=== PATIENT | female | born 1940 | race American Indian/Alaskan Native ===

== ENCOUNTER 2016-10-26 17:21 | Observation (INO) | payer MEDICARE, OTHER ==
[2016-10-26] MEDS ORDERED: Aspirin 81 MG Tab.Chew PO ONE (17:31)
[2016-10-26] MEDS ORDERED: Sodium Chloride 0.9% 10 ML Syringe FLUSH PRN (17:31)
[2016-10-26] MEDS ORDERED: Sodium Chloride 0.9% 2.5 ML Syringe FLUSH PRN (17:31)
[2016-10-26] MEDS ORDERED: Famotidine 20 MG/2 ML SDV IVPUSH ONE (17:31)
[2016-10-26] MEDS ORDERED: Nitroglycerin 0.4 MG Tab.SL SL ONE (17:31)
--- NOTE | 2016-10-26 17:42 | EDM.PDOC ---
ED HISTORY OF PRESENT ILLNESS - General Stated Complaint: PT HAS CHEST PAINS Time Seen by Provider: 10/26/16 17:40 Source of Information: Reports: Patient History Limitations: Reports: No limitations - History of Present Illness INITIAL COMMENTS - FREE TEXT/NARRATIVE: HISTORY AND PHYSICAL: [] 75-year-old female presenting with left-sided chest pain radiating under her breast through to her back History of Present Illness: [] Chest pain started about 12:00 noon today which B. 5-1/2 hours ago Review of Systems: As per history of present illness and below otherwise all systems reviewed and negative. Past medical history: As per history of present illness and as reviewed below otherwise noncontributory. Surgical history: As per history of present illness and as reviewed below otherwise noncontributory. Social history: No reported history of drug or alcohol abuse. Family history: As per history of present illness and as reviewed below otherwise noncontributory. Physical exam: Alert and oriented female, answering questions in full sentences , is warm and dry. Rates pain as a 5/10 HEENT: Atraumatic, normocehpalic, pupils reactive, negative for conjunctival pallor or scleral icterus, mucous membranes moist, throat clear, neck supple, nontender, trachea midline. Lungs: Clear to auscultation, breath sounds equal bilaterally, chest non tender. Heart: S1S2, regular, negative for clicks, rubs, or JVD. Abdomen: Soft, nondistended, nontender. Negative for masses or hepatossplenmegaly. Negative for costovertebral tenderness. Pelvis: Stable nontender. Genitourinary: Deferred. Rectal: Deferred Extremities: Atraumatic, negative for cords or calf pain. Neurovascular unremarkable. Neuro: Awake, alert, oriented. Cranial nerves II through XII unremarkable. Cerebellum unremarkable. Motor and sensory unremarkable throughout. Exam nonfocal. The patient's pain was relieved with one nitroglycerin. troponin is negative Discussed case with Dr. Gomez who has agreed to refer her for observation on telemetry Diagnostics: [CBC CMP troponin amylase lipase EKG chest x-ray] Therapeutics: [] Impression: #1 chest pain] Plan: [] Refer to sedation Definitive disposition and diagnosis as appropriate pending reevaluation and review of above. Timing/Duration: Reports: Hour(s): Severity: moderate Location, General: Reports: chest Quality: Reports: Ache, Stabbing Improves with: Reports: None Worsens with: Reports: Breathing, Movement - Related Data Allergies/ADRs: Allergies Allergy/AdvReac Type Severity Reaction Status Date / Time codeine Allergy Hives Verified 12/03/15 14:03 red dye Allergy Airway Verified 12/03/15 14:03 Tightness sulfamethoxazole Allergy Hives Verified 12/03/15 14:03 [From Bactrim] trimethoprim [From Bactrim] Allergy Hives Verified 12/03/15 14:03 ornade Spansules Allergy Hives Uncoded 12/03/15 14:03 Home Meds: Home Meds Clopidogrel [Plavix] 75 mg PO DAILY 04/23/15 [History] Fluticasone Furoate [Veramyst] 2 spray NS DAILY 04/23/15 [History] Hydrochlorothiazide 25 mg PO DAILY 04/23/15 [History] Lisinopril [Prinivil] 20 mg PO DAILY 04/23/15 [History] Omeprazole 20 mg PO DAILY 04/23/15 [History] atorvaSTATin [Lipitor] 10 mg PO BEDTIME 04/23/15 [History] Aspirin [Adult Low Dose Aspirin EC] 1 tab PO DAILY 12/03/15 [History] Carvedilol 1 tab PO BID 12/03/15 [History] Cetirizine [ZyrTEC] 1 tab PO DAILY 12/03/15 [History] Glimepiride [Amaryl] 1 tab PO DAILY 12/03/15 [History] Nystatin/Triamcinolone Crm [Mycolog Crm] 1 applic TOP BID 12/03/15 [History] Past Medical History HEENT History: Reports: Impaired vision Other HEENT History: wears glasses, has upper dentures Cardiovascular History: Reports: High cholesterol, Hypertension, VT Other Cardiovascular History: VT 2014, has been cleared by Dr. Park, Did not have stent put in, was told her arteries were clear; the VT was caused by stress, TIA in 2002, no residual Respiratory History: Reports: None Gastrointestinal History: Reports: GERD Genitourinary History: Reports: None HOSPITAL [employer]HIP History: Reports: Musculoskeletal History: Reports: None Neurological History: Reports: TIA Other Neuro History: "states she has hx of 7 hamilton and treated in [place]" Psychiatric History: Reports: None Endocrine/Metabolic History: Reports: Obesity/BMI 30+ Hematologic History: Reports: None Immunologic History: Reports: None Oncologic (Cancer) History: Reports: None Dermatologic History: Reports: None - Past Surgical History Other Female Surgeries/Procedures: Anterior repair Social & Family History - Tobacco Use Smoking Status *Q: Never Smoker Second Hand Smoke Exposure: No - Recreational Drug Use Recreational Drug Use: No ED ROS GENERAL - Review of Systems Review Of Systems: ROS reveals no pertinent complaints other than HPI. ED EXAM, GENERAL - Physical Exam Exam: See Below (see dictation) EKG INTERPRETATION EKG Date: 10/26/16 Rhythm: NSR Course - Vital Signs Last Recorded V/S: Last Vital Signs Temp Pulse Resp BP 131/66 10/26/16 18:39 Pulse Ox - Orders/Labs/Meds Orders: Active Orders 24 hr Category Date Time Status Cardiac Monitoring [RC] . DIRECTED Care 10/26/16 17:31 Active EKG Documentation Completion [RC] STAT Care 10/26/16 17:31 Active Oxygen Therapy [RC] ASDIRECTED Care 10/26/16 17:31 Active Chest 1V Frontal [CR] Stat Exams 10/26/16 17:31 Ordered AMYLASE [CHEM] Stat Lab 10/26/16 18:00 Received COMPREHENSIVE METABOLIC PN,CMP [CHEM] Stat Lab 10/26/16 18:00 Received INR,PT,PROTHROMBIN TIME [COAG] Stat Lab 10/26/16 18:00 Received LIPASE [CHEM] Stat Lab 10/26/16 18:00 Received UA W/MICROSCOPIC [URIN] Stat Lab 10/26/16 17:31 Uncollected Sodium Chloride 0.9% [Saline Flush] Med 10/26/16 17:31 Active 10 ml FLUSH ASDIRECTED PRN Sodium Chloride 0.9% [Saline Flush] Med 10/26/16 17:31 Active 2.5 ml FLUSH ASDIRECTED PRN Saline Lock Insert [OM.PC] Stat Oth 10/26/16 17:31 Ordered Medication Orders Sodium Chloride (Saline Flush) 10 ml FLUSH ASDIRECTED PRN PRN Reason: Keep Vein Open Sodium Chloride (Saline Flush) 2.5 ml FLUSH ASDIRECTED PRN PRN Reason: Keep Vein Open Labs: Laboratory Tests 10/26/16 10/26/16 Range/Units 18:00 18:00 WBC 8.21 (4.0-11.0) K/uL RBC 4.25 L (4.30-5.90) M/uL Hgb 13.3 (12.0-16.0) g/dL Hct 38.2 (36.0-46.0) % MCV 89.9 (80.0-98.0) fL MCH 31.3 (27.0-32.0) pg MCHC 34.8 (31.0-37.0) g/dL RDW Std Deviation 40.1 (28.0-62.0) fl RDW Coeff of Greg 13 (11.0-15.0) % Plt Count 218 (150-400) K/uL MPV 10.00 (7.40-12.00) fL Neut % (Auto) 49.4 (48.0-80.0) % Lymph % (Auto) 40.6 H (16.0-40.0) % [place] % (Auto) 6.8 (0.0-15.0) % Eos % (Auto) 2.6 (0.0-7.0) % Baso % (Auto) 0.6 (0.0-1.5) % Neut # 4.1 (1.4-5.7) K/uL Lymph # 3.3 H (0.6-2.4) K/uL [place] # 0.6 (0.0-0.8) K/uL Eos # 0.2 (0.0-0.7) K/uL Baso # 0.1 (0.0-0.1) K/uL Nucleated RBC % 0.0 /100WBC Nucleated RBCs # 0 K/uL Troponin I < 0.10 (0.0-0.29) NG/ML Meds: Medications Generic Name Dose Route Start Last Admin Trade Name Freq PRN Reason Stop Dose Admin Sodium Chloride 10 ml 10/26/16 17:31 Saline Flush FLUSH ASDIRECTED PRN Keep Vein Open Sodium Chloride 2.5 ml 10/26/16 17:31 Saline Flush FLUSH ASDIRECTED PRN Keep Vein Open Discontinued Medications Generic Name Dose Route Start Last Admin Trade Name Freq PRN Reason Stop Dose Admin Aspirin 324 mg 10/26/16 17:31 10/26/16 18:38 Aspirin PO 10/26/16 17:32 324 mg ONETIME ONE Administration Famotidine 20 mg 10/26/16 17:31 10/26/16 18:40 Pepcid IVPUSH 10/26/16 17:32 20 mg ONETIME ONE Administration Nitroglycerin 0.4 mg 10/26/16 17:31 10/26/16 18:39 Nitrostat SL 10/26/16 17:32 0.4 mg ONETIME ONE Administration Departure - Departure Time of Disposition: 18:50 Disposition: Refer to Observation Condition: good Clinical Impression: Acute coronary syndrome - My Orders Last 24 Hours: My Active Orders 10/26/16 17:31 Cardiac Monitoring [RC] . DIRECTED EKG Documentation Completion [RC] STAT Oxygen Therapy [RC] ASDIRECTED Chest 1V Frontal [CR] Stat UA W/MICROSCOPIC [URIN] Stat Sodium Chloride 0.9% [Saline Flush] 10 ml FLUSH ASDIRECTED PRN Sodium Chloride 0.9% [Saline Flush] 2.5 ml FLUSH ASDIRECTED PRN Saline Lock Insert [OM.PC] Stat 10/26/16 18:00 AMYLASE [CHEM] Stat COMPREHENSIVE METABOLIC PN,CMP [CHEM] Stat INR,PT,PROTHROMBIN TIME [COAG] Stat LIPASE [CHEM] Stat - Assessment/Plan Last 24 Hours: My Active Orders 10/26/16 17:31 Cardiac Monitoring [RC] . DIRECTED EKG Documentation Completion [RC] STAT Oxygen Therapy [RC] ASDIRECTED Chest 1V Frontal [CR] Stat UA W/MICROSCOPIC [URIN] Stat Sodium Chloride 0.9% [Saline Flush] 10 ml FLUSH ASDIRECTED PRN Sodium Chloride 0.9% [Saline Flush] 2.5 ml FLUSH ASDIRECTED PRN Saline Lock Insert [OM.PC] Stat 10/26/16 18:00 AMYLASE [CHEM] Stat COMPREHENSIVE METABOLIC PN,CMP [CHEM] Stat INR,PT,PROTHROMBIN TIME [COAG] Stat LIPASE [CHEM] Stat
[2016-10-26 18:53] LABS: CHLORIDE,CL 104 mmol/L (98-110); SODIUM,NA 138 mmol/L (136-146)
[2016-10-26] MEDS ORDERED: Ondansetron 4 MG/2 ML SDV IVPUSH PRN (19:11)
[2016-10-26] MEDS ORDERED: Acetaminophen 325 MG Tab PO PRN (19:11)
--- NOTE | 2016-10-26 19:22 | PCM.HP ---
H&P History of Present Illness - General Admit Problem/Dx: Admission Diagnosis/Problem Admission Diagnosis/Problem Chest pain - History of Present Illness Initial Comments - Free Text/Narative: 75 yo female with pmh of IA in 2013. Patient reports she had cardiac cath in [place] at the time of her IA and she had no significant CAD. She has been doing well at home until one oclock she developed left sided chest pain that radiates to the back. She reports that it is worse when she moves her neck or bend over. She thinks she pulled a muscle. She was evaluated in the ED and intial EKG and cardiac enzymes did not show any signs of ischemia. Left Chest Pain Score (Numeric/FACES): 5 - Related Data Allergies/Adverse Reactions: Allergies Allergy/AdvReac Type Severity Reaction Status Date / Time codeine Allergy Hives Verified 10/26/16 19:17 red dye Allergy Airway Verified 10/26/16 19:17 Tightness sulfamethoxazole Allergy Hives Verified 10/26/16 19:17 [From Bactrim] trimethoprim [From Bactrim] Allergy Hives Verified 10/26/16 19:17 ornade Spansules Allergy Hives Uncoded 10/26/16 19:17 Home Medications: Home Meds Clopidogrel [Plavix] 75 mg PO DAILY 04/23/15 [History] Hydrochlorothiazide 25 mg PO DAILY 04/23/15 [History] Lisinopril [Prinivil] 20 mg PO DAILY 04/23/15 [History] Omeprazole 20 mg PO DAILY 04/23/15 [History] Aspirin [Adult Low Dose Aspirin EC] 1 tab PO DAILY 12/03/15 [History] Carvedilol 6.25 mg PO BID 12/03/15 [History] Cetirizine [ZyrTEC] 1 tab PO DAILY 12/03/15 [History] Glimepiride [Amaryl] 1 tab PO DAILY 12/03/15 [History] atorvaSTATin [Lipitor] 5 mg PO DAILY 10/26/16 [History] metFORMIN [Glucophage XR] 250 mg PO BEDTIME 10/26/16 [History] Past Medical History HEENT History: Reports: Impaired vision Other HEENT History: wears glasses, has upper dentures Cardiovascular History: Reports: High cholesterol, Hypertension, IA Other Cardiovascular History: IA 2014, has been cleared by Dr. 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: Musculoskeletal History: Reports: None Neurological History: Reports: TIA Other Neuro History: "states she has hx of 7 hamilton and treated in [place]" Psychiatric History: Reports: None Endocrine/Metabolic History: Reports: Obesity/BMI 30+ Hematologic History: Reports: None Immunologic History: Reports: None Oncologic (Cancer) History: Reports: None Dermatologic History: Reports: None - Past Surgical History Head Surgeries/Procedures: Reports: None Other Female Surgeries/Procedures: Anterior repair Social & Family History - Family History Family Medical History: Noncontributory - Tobacco Use Smoking Status *Q: Former Smoker Second Hand Smoke Exposure: No - Recreational Drug Use Recreational Drug Use: No H&P Review of Systems - Review of Systems: Review Of Systems: See Below General: Reports: no symptoms HEENT: Reports: no symptoms Pulmonary: Reports: No Symptoms Cardiovascular: Reports: no symptoms Gastrointestinal: Reports: No symptoms Genitourinary: Reports: no symptoms Musculoskeletal: Reports: no symptoms Skin: Reports: no symptoms Psychiatric: Reports: no symptoms Neurological: Reports: No Symptoms Hematologic/Lymphatic: Reports: no symptoms Immunologic: Reports: no symptoms Exam - Exam Exam: See Below - Vital Signs Vital Signs: Last Vital Signs Temp 36.9 C 10/26/16 18:30 Pulse 73 10/26/16 18:30 Resp 18 10/26/16 18:30 BP 131/66 10/26/16 18:39 Pulse Ox 97 10/26/16 19:06 Weight: 72.575 kg - Exam General: alert, oriented, 4 Lungs: Clear to auscultation, Normal respiratory effort Cardiovascular: regular rate, regular rhythm Abdomen: normal bowel sounds, soft Extremities: normal inspection Skin: warm, dry, intact - Patient Data Lab Results last 24 hrs: Laboratory Results - last 24 hr 10/26/16 10/26/16 10/26/16 Range/Units 18:00 18:00 18:00 WBC 8.21 (4.0-11.0) K/uL RBC 4.25 L (4.30-5.90) M/uL Hgb 13.3 (12.0-16.0) g/dL Hct 38.2 (36.0-46.0) % MCV 89.9 (80.0-98.0) fL MCH 31.3 (27.0-32.0) pg MCHC 34.8 (31.0-37.0) g/dL RDW Std Deviation 40.1 (28.0-62.0) fl RDW Coeff of Greg 13 (11.0-15.0) % Plt Count 218 (150-400) K/uL MPV 10.00 (7.40-12.00) fL Neut % (Auto) 49.4 (48.0-80.0) % Lymph % (Auto) 40.6 H (16.0-40.0) % [place] % (Auto) 6.8 (0.0-15.0) % Eos % (Auto) 2.6 (0.0-7.0) % Baso % (Auto) 0.6 (0.0-1.5) % Neut # 4.1 (1.4-5.7) K/uL Lymph # 3.3 H (0.6-2.4) K/uL Todd # 0.6 (0.0-0.8) K/uL Eos # 0.2 (0.0-0.7) K/uL Baso # 0.1 (0.0-0.1) K/uL Nucleated RBC % 0.0 /100WBC Nucleated RBCs # 0 K/uL INR 1.01 (0.86-1.11) Sodium 138 (136-146) mmol/L Potassium 3.9 (3.5-5.1) mmol/L Chloride 104 (98-110) mmol/L Carbon Dioxide 24 (21-31) mmol/L BUN 26 H (6.0-23.0) mg/dL Creatinine 1.1 (0.6-1.5) mg/dL Est Cr Clr Drug Dosing TNP Estimated GFR (MDRD) 48.4 ml/min Glucose 230 H (60-110) mg/dL Calcium 9.2 (8.8-10.8) mg/dL Total Bilirubin 0.4 (0.1-1.5) mg/dL AST 16 (5-40) IU/L ALT 16 (8-54) IU/L Alkaline Phosphatase 86 (40-150) Troponin I (0.0-0.29) NG/ML Total Protein 8.0 (6.0-8.0) g/dL Albumin 4.1 (3.4-4.8) g/dL Globulin 3.9 H (2.0-3.5) g/dL Albumin/Globulin Ratio 1.1 L (1.3-2.8) Amylase 42 (10-90) U/L Lipase 73 (7-80) U/L 10/26/16 Range/Units 18:00 WBC (4.0-11.0) K/uL RBC (4.30-5.90) M/uL Hgb (12.0-16.0) g/dL Hct (36.0-46.0) % MCV (80.0-98.0) fL MCH (27.0-32.0) pg MCHC (31.0-37.0) g/dL RDW Std Deviation (28.0-62.0) fl RDW Coeff of Greg (11.0-15.0) % Plt Count (150-400) K/uL MPV (7.40-12.00) fL Neut % (Auto) (48.0-80.0) % Lymph % (Auto) (16.0-40.0) % [place] % (Auto) (0.0-15.0) % Eos % (Auto) (0.0-7.0) % Baso % (Auto) (0.0-1.5) % Neut # (1.4-5.7) K/uL Lymph # (0.6-2.4) K/uL [place] # (0.0-0.8) K/uL Eos # (0.0-0.7) K/uL Baso # (0.0-0.1) K/uL Nucleated RBC % /100WBC Nucleated RBCs # K/uL INR (0.86-1.11) Sodium (136-146) mmol/L Potassium (3.5-5.1) mmol/L Chloride (98-110) mmol/L Carbon Dioxide (21-31) mmol/L BUN (6.0-23.0) mg/dL Creatinine (0.6-1.5) mg/dL Est Cr Clr Drug Dosing Estimated GFR (MDRD) ml/min Glucose (60-110) mg/dL Calcium (8.8-10.8) mg/dL Total Bilirubin (0.1-1.5) mg/dL AST (5-40) IU/L ALT (8-54) IU/L Alkaline Phosphatase (40-150) Troponin I < 0.10 (0.0-0.29) NG/ML Total Protein (6.0-8.0) g/dL Albumin (3.4-4.8) g/dL Globulin (2.0-3.5) g/dL Albumin/Globulin Ratio (1.3-2.8) Amylase (10-90) U/L Lipase (7-80) U/L Result Diagrams: 10/26/16 18:00 10/26/16 18:00 *Q Meaningful Use (ADM) - VTE *Q VTE Criteria *Q: - Stroke *Q Stroke Criteria *Q: - AMI *Q AMI Criteria *Q: Problem List Initiated/Reviewed/Updated: Yes Orders Last 24hrs: Active Orders 24 hr Category Date Time Status Patient Status [ADT] Stat ADT 10/26/16 18:50 Active Antiembolic Devices [RC] PER UNIT ROUTINE Care 10/26/16 19:13 Ordered Cardiac Monitoring [RC] . DIRECTED Care 10/26/16 17:31 Active EKG Documentation Completion [RC] STAT Care 10/26/16 17:31 Active Intake and Output [RC] QSHIFT Care 10/26/16 19:12 Ordered Oxygen Therapy [RC] ASDIRECTED Care 10/26/16 17:31 Active Oxygen Therapy [RC] PRN Care 10/26/16 19:11 Ordered Up ad Jolene [RC] ASDIRECTED Care 10/26/16 19:11 Ordered VTE/DVT Education [RC] PER UNIT ROUTINE Care 10/26/16 19:11 Ordered Vital Signs [RC] Q4H Care 10/26/16 19:11 Ordered [employer] Diet [DIET] Diet 10/26/16 Breakfast Ordered Chest 1V Frontal [CR] Stat Exams 10/26/16 17:31 Taken GLYCOSYLATED HEMOGLOBIN,HGBA1C [CHEM] Stat Lab 10/26/16 19:09 Ordered TROPONIN I [CHEM] Q6H Lab 10/27/16 00:00 Ordered TROPONIN I [CHEM] Q6H Lab 10/27/16 06:00 Ordered UA W/MICROSCOPIC [URIN] Stat Lab 10/26/16 17:31 Uncollected Acetaminophen [Tylenol] Med 10/26/16 19:11 Ordered 650 mg PO Q4H PRN Aspirin [Halfprin] Med 10/27/16 09:00 Ordered 1 tab PO DAILY Carvedilol [Coreg] Med 10/26/16 21:00 Ordered 1 tab PO BID Clopidogrel [Plavix] Med 10/27/16 09:00 Ordered 75 mg PO DAILY Fluticasone Furoate [Veramyst] Med 10/27/16 09:00 Ordered 2 spray NS DAILY Hydrochlorothiazide Med 10/27/16 09:00 Ordered 25 mg PO DAILY Insulin Aspart [NovoLOG] Med 10/27/16 07:30 Ordered See Protocol SUBCUT TIDAC Lisinopril Med 10/27/16 09:00 Ordered 20 mg PO DAILY Omeprazole Med 10/27/16 09:00 Ordered 20 mg PO DAILY Ondansetron [Zofran] Med 10/26/16 19:11 Ordered 4 mg IVPUSH Q4H PRN Sodium Chloride 0.9% [Saline Flush] Med 10/26/16 17:31 Active 10 ml FLUSH ASDIRECTED PRN Sodium Chloride 0.9% [Saline Flush] Med 10/26/16 17:31 Active 2.5 ml FLUSH ASDIRECTED PRN atorvaSTATin [Lipitor] Med 10/26/16 21:00 Ordered 10 mg PO BEDTIME Saline Lock Insert [OM.PC] Stat Oth 10/26/16 17:31 Ordered Sequential Compression Device [OM.PC] Per Unit Routine Oth 10/26/16 19:12 Ordered Resuscitation Status Routine Resus Stat 10/26/16 19:11 Ordered Medication Orders Acetaminophen (Tylenol) 650 mg PO Q4H PRN PRN Reason: Pain (Mild 1-3)/fever Aspirin (Halfprin) mg PO DAILY IPLAR Atorvastatin Calcium (Lipitor) 10 mg PO BEDTIME PILAR Carvedilol (Coreg) mg PO BID PILAR Clopidogrel Bisulfate (Plavix) 75 mg PO DAILY PILAR Hydrochlorothiazide (Hydrochlorothiazide) 25 mg PO DAILY PILAR Insulin Aspart (Novolog) 0 unit SUBCUT TIDAC PILAR PRN Reason: Protocol Non-Formulary Medication (Lisinopril) 20 mg PO DAILY PILAR Non-Formulary Medication (Fluticasone Furoate [Veramyst]) 2 spray NS DAILY PILAR Omeprazole (Omeprazole) 20 mg PO DAILY PILAR Ondansetron HCl (Zofran) 4 mg IVPUSH Q4H PRN PRN Reason: Nausea Sodium Chloride (Saline Flush) 10 ml FLUSH ASDIRECTED PRN PRN Reason: Keep Vein Open Sodium Chloride (Saline Flush) 2.5 ml FLUSH ASDIRECTED PRN PRN Reason: Keep Vein Open Assessment/Plan Comment:: 75 yo female who presents with chest pain. We will monitor overnight on telemetry and trend cardiac enzymes.
[2016-10-26] MEDS ORDERED: atorvaSTATin 10 MG Tab PO SCH (21:00)
[2016-10-26] MEDS ORDERED: Carvedilol 3.125 MG Tab PO SCH ×2 (21:00→21:05)
[2016-10-26] MEDS ORDERED: metFORMIN 500 MG Tab.ER PO SCH (21:00)
[2016-10-26] MEDS: Carvedilol 6.25 MG Tab PO SCH (22:22)
[2016-10-27] MEDS: Insulin Aspart 100 Units/ML 3 ML Pen SUBCUT SCH ×2 (06:31→11:26)
[2016-10-27] MEDS ORDERED: Omeprazole 20 MG Cap.CR PO SCH ×2 (07:30→09:00)
[2016-10-27 08:12] VITALS: BP 144/72
[2016-10-27] MEDS: Carvedilol 6.25 MG Tab PO SCH (08:17)
[2016-10-27] MEDS ORDERED: Glimepiride 4 MG Tab PO SCH (09:00)
[2016-10-27] MEDS ORDERED: FLUTICASONE FUROATE NS SCH (09:00)
[2016-10-27] MEDS ORDERED: atorvaSTATin 10 MG Tab PO SCH (09:00)
[2016-10-27] MEDS ORDERED: Aspirin 81 MG Tab.EC PO SCH (09:00)
[2016-10-27] MEDS ORDERED: Lisinopril 10 MG Tab PO SCH (09:00)
[2016-10-27] MEDS ORDERED: Hydrochlorothiazide 25 MG Tab PO SCH (09:00)
[2016-10-27] MEDS ORDERED: Fluticasone Propionate Nasal Spray 16 GM Bottle NAS SCH (09:00)
[2016-10-27] MEDS ORDERED: Clopidogrel 75 MG Tab PO SCH (09:00)
--- NOTE | 2016-10-27 09:00 | PCM.DCSUM1 ---
Discharge Summary - Hospital Course Brief History: This 75 year old female with pmh of LA in 2013 and DM type 2. Patient reports she had cardiac cath in [place] at the time of her LA and she had no significant CAD. Presented to the ED last evening, she has been doing well at home until one oclock she developed left sided chest pain that radiates to the back. She reports that it is worse when she moves her neck or bend over. She thinks she pulled a muscle, she has been out shoveling snow recently. She was evaluated in the ED and intial EKG and cardiac enzymes did not show any signs of ischemia. She was admitted for chest pain r/o ACS. - Discharge Data Discharge Date: 10/27/16 Discharge Disposition: Home, Self-Care 01 Condition: Good - Patient Instructions Diet: Heart Healthy Diet, Diabetic Diet Activity: As Tolerated Driving: May Drive Today Showering/Bathing: May Shower Notify Provider of: Fever, Increased Pain, Swelling and Redness, Drainage, Nausea and/or Vomiting - Discharge Plan Home Medications: Home Meds Clopidogrel [Plavix] 75 mg PO DAILY 04/23/15 [History] Hydrochlorothiazide 25 mg PO DAILY 04/23/15 [History] Lisinopril [Prinivil] 20 mg PO DAILY 04/23/15 [History] Omeprazole 20 mg PO DAILY 04/23/15 [History] Aspirin [Adult Low Dose Aspirin EC] 1 tab PO DAILY 12/03/15 [History] Carvedilol 6.25 mg PO BID 12/03/15 [History] Cetirizine [ZyrTEC] 1 tab PO DAILY 12/03/15 [History] Glimepiride [Amaryl] 1 tab PO DAILY 12/03/15 [History] atorvaSTATin [Lipitor] 5 mg PO DAILY 10/26/16 [History] metFORMIN [Glucophage XR] 250 mg PO BEDTIME 10/26/16 [History] Patient Handouts: Acute Coronary Syndrome Referrals: Leslee Liu MD [Physician] - 11/06/16 9:00 am - Discharge Summary/Plan Comment DC Time >30 min.: No Discharge Summary/Plan Comment: Discharge Diagnoses Muscle strain to L shoulder/ upper back HTN CAD DM type 2 Kayce was admitted and observed overnight. ACS ruled out, all troponins negative. and telemetry did not show any ST segment changes. She continues to have pain, but it is more focal and located to L scapula. She is tender to palpation over L lateral scapula. When pressing in this area it reproduces the pain and sensations she was having on admission. Chest pain likely secondary to muscle strain of shoulder and back. She is encouraged to take Tylenol for pain, ICE and heat may help and to rest with no strenuous activities. She reports she is eager to go home today. I will arrange follow up with Dr. Liu in [place] in 1 week. She reports she just saw Dr Park 1-2 months ago and everything checked out fine. We would recommend an outpatient stress test, but she declines scheduling this and will follow with Dr. Liu first. Will continue all home medications as previously ordered. She is to return to the clinic or ED if concerns should arise. - General Info Date of Service: 10/27/16 Admission Dx/Problem (Free Text: Admission Diagnosis/Problem Admission Diagnosis/Problem Chest pain Subjective Update: Feeling good this morning, still having pain to L upper back, scapula area but "I know this is not my heart". She denies chest pain, SOB or palpitations. No N/ V or diaphoresis. She is ready to go home today. Functional Status: Reports: pain controlled, tolerating diet, ambulating, urinating - Review of Systems General: Reports: No Symptoms. Denies: Fever HEENT: Reports: no symptoms. Denies: sinus congestion, sore throat Pulmonary: Reports: no symptoms. Denies: shortness of breath, pleuritic chest pain, cough, sputum Cardiovascular: Reports: No Symptoms. Denies: Chest Pain, Palpitations, Edema Gastrointestinal: Reports: No symptoms. Denies: Abdominal pain, Constipation, Nausea, Vomiting Genitourinary: Reports: no symptoms. Denies: dysuria, frequency, burning Musculoskeletal: Reports: back pain (upper L back, scapula region radiates up to L neck and around the flank to the L armpit) Skin: Reports: no symptoms Neurological: Reports: No Symptoms. Denies: Numbness, Paresthesia, Syncope, Tingling Psychiatric: Reports: no symptoms - Patient Data Vitals - Most Recent: Last Vital Signs Temp 98.1 F 10/27/16 08:00 Pulse 69 10/27/16 08:17 Resp 18 10/27/16 08:00 BP 144/72 H 10/27/16 08:17 Pulse Ox 95 10/27/16 08:00 Weight - Most Recent: 77.678 kg I&O - Last 24 hours: Intake & Output 10/26/16 10/27/16 10/27/16 22:59 06:59 14:59 Intake Total 275 Output Total 650 Balance -375 Lab Results - Last 24 hrs: Laboratory Results - last 24 hr 10/27/16 10/27/16 10/27/16 Range/Units 00:10 05:47 06:26 POC Glucose 155 H (60-110) mg/dL Troponin I < 0.10 < 0.10 (0.0-0.29) NG/ML Med Orders - Current: Current Medications Acetaminophen (Tylenol) 650 mg PO Q4H PRN PRN Reason: Pain (Mild 1-3)/fever Aspirin (Halfprin) 81 mg PO DAILY [facility] Last Admin: 10/27/16 08:13 Dose: 81 mg Atorvastatin Calcium (Lipitor) 5 mg PO DAILY [facility] Last Admin: 10/27/16 08:14 Dose: 5 mg Carvedilol (Coreg) 6.25 mg PO BID [facility] Last Admin: 10/27/16 08:17 Dose: 6.25 mg Clopidogrel Bisulfate (Plavix) 75 mg PO DAILY [facility] Last Admin: 10/27/16 08:16 Dose: 75 mg Fluticasone Propionate (Flonase) 0 gm NORI DAILY [facility] Last Admin: 10/27/16 08:29 Dose: Not Given Glimepiride (Glimepiride) 4 mg PO DAILY [facility] Last Admin: 10/27/16 08:29 Dose: 4 mg Hydrochlorothiazide (Hydrochlorothiazide) 25 mg PO DAILY [facility] Last Admin: 10/27/16 08:13 Dose: 25 mg Insulin Aspart (Novolog) 0 unit SUBCUT TIDAC [facility] PRN Reason: Protocol Last Admin: 10/27/16 06:31 Dose: Not Given Lisinopril (Prinivil) 20 mg PO DAILY [facility] Last Admin: 10/27/16 08:13 Dose: 20 mg Metformin HCl (Glucophage Xr) 250 mg PO BEDTIME [facility] Last Admin: 10/26/16 21:21 Dose: 250 mg Omeprazole (Omeprazole) 20 mg PO ACBREAKFAST [facility] Last Admin: 10/27/16 06:35 Dose: 20 mg Ondansetron HCl (Zofran) 4 mg IVPUSH Q4H PRN PRN Reason: Nausea Sodium Chloride (Saline Flush) 10 ml FLUSH ASDIRECTED PRN PRN Reason: Keep Vein Open Sodium Chloride (Saline Flush) 2.5 ml FLUSH ASDIRECTED PRN PRN Reason: Keep Vein Open Discontinued Medications Aspirin (Aspirin) 324 mg PO ONETIME ONE Stop: 10/26/16 17:32 Last Admin: 10/26/16 18:38 Dose: 324 mg Atorvastatin Calcium (Lipitor) 10 mg PO BEDTIME [facility] Carvedilol (Coreg) mg PO BID [facility] Carvedilol (Coreg) 6.25 mg PO BID [facility] Famotidine (Pepcid) 20 mg IVPUSH ONETIME ONE Stop: 10/26/16 17:32 Last Admin: 10/26/16 18:40 Dose: 20 mg Nitroglycerin (Nitrostat) 0.4 mg SL ONETIME ONE Stop: 10/26/16 17:32 Last Admin: 10/26/16 18:39 Dose: 0.4 mg Non-Formulary Medication (Fluticasone Furoate [Veramyst]) 2 spray NS DAILY [facility] Omeprazole (Omeprazole) 20 mg PO DAILY [facility] - Exam General: Reports: alert, oriented, cooperative HEENT: Reports: Pupils equal, Pupils reactive, EOMI, Mucous membr. moist/pink Neck: Reports: supple. Denies: lymphadenopathy, JVD Lungs: Reports: Clear to auscultation, Normal respiratory effort. Denies: Decreased breath sounds, Crackles Cardiovascular: Reports: Regular Rate, Regular Rhythm, No Murmurs Abdomen: Reports: bowel sounds present, soft, no tenderness, no distension Extremities: Reports: no edema, normal pulses Wound/Incisions: Reports: healing well Psy/Mental Status: Reports: alert, normal affect, normal mood *Q Meaningful Use (DIS) - VTE *Q VTE Criteria *Q: - Stroke *Q Stroke Criteria *Q: - AMI *Q AMI Criteria *Q:
--- NOTE | 2016-10-27 13:58 | CR ---
EXAM DATE: 10/26/16 PATIENT'S AGE: 75 Patient: DANNY SWEENEY Facility: [place], [place] Site Site : [id number] Study: XRay Chest [id number]/16/2017 6:53:42 PM Ordering Physician: CORIE WOODY Final Report: Indication: Chest pain Technique: Chest 1 view. Comparison: December 01, 2015 Findings/impression: : Lung volumes are low with minimal atelectasis at both lung bases. No focal consolidation, effusion, or pneumothorax. Stable cardiomediastinal silhouette. No acute osseous abnormality. Dictated by Neha Lopez MD @ Oct 26 2016 7:03PM (Electronic Signature) Report Signed by Proxy and Original Signed Document filed in the Medical Record. MTDD
== END 2016-10-27 12:15 | disposition home or self-care (01) ==
LOC: MW.ED 17:21 → MW.MS 19:06
PROVIDERS: ADMIT Internal Medicine; ATTEND Internal Medicine
DX: S29.012A Strain of muscle and tendon of back wall of thorax, initial encounter (principal); S46.912A Strain of unspecified muscle, fascia and tendon at shoulder and upper arm level, left arm, initial encounter; I25.10 Atherosclerotic heart disease of native coronary artery without angina pectoris; I10 Essential (primary) hypertension; E11.9 Type 2 diabetes mellitus without complications; Z87.891 Personal history of nicotine dependence; Z79.84 Long term (current) use of oral hypoglycemic drugs; Z79.82 Long term (current) use of aspirin; Z79.899 Other long term (current) drug therapy
CPT/HCPCS: 36415; 71010; 80053; 81001; 82150; 82962; 83036; 83690; 84484; 85025; 85610; 93005; 96374; 97802; 99285; A9270; G0378; 99284

== ENCOUNTER 2016-12-26 06:26 | Day surgery (SDC) | payer MEDICARE, OTHER ==
[2016-12-26] MEDS: Lactated Ringers 1,000 ML IV SCH ×2 (06:52→15:30)
--- NOTE | 2016-12-26 07:08 | PCM.PREANE ---
Preanesthetic Assessment - Anesthesia/Transfusion/Family Hx Anesthesia History: Prior Anesthesia Reaction Family History of Anesthesia Reaction: No Transfusion History: No Prior Transfusion(s) Intubation History: Unknown - Review of Systems General: No Symptoms Pulmonary: No Symptoms Cardiovascular: No Symptoms Gastrointestinal: No symptoms Neurological: No Symptoms Other: Reports: None - Physical Assessment NPO Status Date: 12/25/16 NPO Status Time: 17:00 O2 Sat by Pulse Oximetry: 97 Respiratory Rate: 16 Vital Signs: Last Vital Signs Temp 36.5 C 12/26/16 06:57 Pulse 63 12/26/16 06:57 Resp 16 12/26/16 06:57 BP 142/60 H 12/26/16 06:57 Pulse Ox 97 12/26/16 06:57 Height: 1.59 m Weight: 77.111 kg ASA Class: 3 Mental Status: Alert & Oriented x3 Airway Class: Mallampati = 2 Dentition: Reports: Dentures (upper) Thyro-Mental Finger Breadths: 3 Mouth Opening Finger Breadths: 3 ROM/Head Extension: Full Lungs: Clear to auscultation, Normal respiratory effort Cardiovascular: Regular Rate, Regular Rhythm - Allergies Allergies/Adverse Reactions: Allergies Allergy/AdvReac Type Severity Reaction Status Date / Time codeine Allergy Hives Verified 10/26/16 19:17 Iodine and Iodide Containing Allergy Airway Verified 12/22/16 10:27 Produc Tightness red dye Allergy Airway Verified 10/26/16 19:17 Tightness sulfamethoxazole Allergy Hives Verified 10/26/16 19:17 [From Bactrim] trimethoprim [From Bactrim] Allergy Hives Verified 10/26/16 19:17 ornade Spansules Allergy Hives Uncoded 10/26/16 19:17 - Blood Blood Available: No - Anesthesia Plan Pre-Op Medication Ordered: None Beta Estela: Carvedilol Med Last Dose Date: 12/25/16 Med Last Dose Time: 19:00 - Acknowledgements Pt an Appropriate Candidate for the Planned Anesthesia: Yes Alternatives and Risks of Anesthesia Discussed w Pt/Guardian: Yes Pt/Guardian Understands and Agrees with Anesthesia Plan: Yes PreAnesthesia Questionnaire HEENT History: Reports: Other (See Below) Other HEENT History: wears glasses, has upper denture Cardiovascular History: Reports: High Cholesterol, Hypertension, NC, Other (See Below) Other Cardiovascular History: NC in 2014- no stents, TIA in 2002- no residual Respiratory History: Reports: None Gastrointestinal History: Reports: GERD Genitourinary History: Reports: None [employer] History: Reports: Musculoskeletal History: Reports: None Neurological History: Reports: TIA Other Neuro History: TIA- 2002, no residual Psychiatric History: Reports: None Endocrine/Metabolic History: Reports: Diabetes, Type II (since , the same surgery canceled last time due to glucose levels above 600, A1C down to 8.1), Obesity/BMI 30+ Hematologic History: Reports: Anticoagulation Therapy Other Hematologic History: takes plavix Immunologic History: Reports: None Oncologic (Cancer) History: Reports: None Dermatologic History: Reports: None - Past Surgical History Head Surgeries/Procedures: Reports: None HEENT Surgical History: Reports: None Cardiovascular Surgical History: Reports: None Respiratory Surgical History: Reports: None GI Surgical History: Reports: Cholecystectomy (open) Female Surgical History: Reports: Hysterectomy (TVH), Other (See Below) Other Female Surgeries/Procedures: Anterior repair Endocrine Surgical History: Reports: None Neurological Surgical History: Reports: None Musculoskeletal Surgical History: Reports: None Oncologic Surgical History: Reports: None Dermatological Surgical History: Reports: None - SUBSTANCE USE Smoking Status *Q: Former Smoker Second Hand Smoke Exposure: No Recreational Drug Use History: No - HOME MEDS Home Medications: Home Meds Clopidogrel [Plavix] 75 mg PO DAILY 04/23/15 [History] Hydrochlorothiazide 25 mg PO DAILY 04/23/15 [History] Lisinopril [Prinivil] 10 mg PO DAILY 04/23/15 [History] Omeprazole 20 mg PO DAILY 04/23/15 [History] Aspirin [Adult Low Dose Aspirin EC] 1 tab PO DAILY 12/03/15 [History] Carvedilol 3.125 mg PO BID 12/03/15 [History] Cetirizine [ZyrTEC] 10 mg PO DAILY 12/03/15 [History] Glimepiride [Amaryl] 4 mg PO DAILY 12/03/15 [History] Fluticasone Propionate [Flonase Allergy Relief] 1 spray NASBOTH DAILY PRN [History] atorvaSTATin [Lipitor] 5 mg PO DAILY 12/22/16 [History] metFORMIN [Glucophage XR] 1,500 mg PO BEDTIME 12/22/16 [History] - CURRENT (IN HOUSE) MEDS Current Meds: Current Medications Lactated Ringer's (Ringers, Lactated) 1,000 mls @ 125 mls/hr IV ASDIRECTED [facility] Last Admin: 12/26/16 06:52 Dose: 125 mls/hr
[2016-12-26] MEDS ORDERED: Lidocaine 2% 5 ML SDV ONE (07:11)
[2016-12-26] MEDS ORDERED: Propofol 200 MG/20 ML SDV ONE (07:12)
[2016-12-26] MEDS ORDERED: fentaNYL 100 MCG/2 ML SDV ONE (07:12)
[2016-12-26] MEDS ORDERED: fentaNYL 250 MCG/5 ML SDV ONE (07:12)
[2016-12-26] MEDS ORDERED: Midazolam 1 MG/ML 2 ML SDV ONE (07:12)
[2016-12-26] MEDS ORDERED: Fluorescein 5 ML Vial ONE (07:28)
[2016-12-26] MEDS ORDERED: ePHEDrine 50 MG/ML SDV ONE (08:25)
[2016-12-26] MEDS ORDERED: Phenylephrine/Normal Saline 100 MCG/ML 10 ML Syringe ONE (08:25)
[2016-12-26] MEDS ORDERED: fentaNYL 100 MCG/2 ML SDV IVPUSH PRN (08:31)
--- NOTE | 2016-12-26 09:24 | PCM.OPNOTE ---
- General Post-Op/Procedure Note Date of Surgery/Procedure: 12/26/16 Operative Procedure(s): colpocleiesis Findings: 4th degree cystocele and rectocele with complete vault prolapse. Pre Op Diagnosis: prolapse of vaginal vault after hysterectomy Post-Op Diagnosis: Same Anesthesia Technique: General ET tube Primary Surgeon: Dennise Villavicencio Anesthesia Provider: Elias Mc Tassel Making Machine Operator: Juancho Colon Pathology: vaginal mucosa Fluid Replacement, Intraop: 1,000 EBL in mLs: 25 Complications: None Known Condition: Good
--- NOTE | 2016-12-26 10:07 | PCM.POSTAN ---
POST ANESTHESIA ASSESSMENT - MENTAL STATUS Mental Status: alert, oriented - RESPIRATORY Respiratory Status: respiratory rate WNL, airway patent - CARDIOVASCULAR CV Status: pulse rate WNL, blood pressure stable - GASTROINTESTINAL GI Status: no symptoms - POST OP HYDRATION Hydration Status: adequate & stable
--- NOTE | 2016-12-26 10:08 | PCM48HPAN ---
Post Anesthesia Note - EVALUATION WITHIN 48HRS OF ANESTHETIC Vital Signs in Normal Range: Yes Patient Participated in Evaluation: Yes Respiratory Function Stable: Yes Airway Patent: Yes Cardiovascular Function Stable: Yes Hydration Status Stable: Yes Pain Control Satisfactory: Yes Nausea and Vomiting Control Satisfactory: Yes Mental Status Recovered: Yes
[2016-12-26] MEDS ORDERED: Promethazine 25 MG/ML SDV IM PRN ×2 (12:09→13:58)
[2016-12-26] MEDS ORDERED: Promethazine 12.5 MG Supp RECTAL PRN (12:10)
[2016-12-26] MEDS ORDERED: Scopolamine 1.5 MG Transdermal Patch TRDERM PRN (13:56)
[2016-12-26] MEDS ORDERED: traMADol 50 MG Tab PO PRN (13:58)
--- NOTE | 2016-12-26 14:18 | OR ---
SURGEON: Dennise Villavicencio M.D. DATE OF PROCEDURE: 12/26/2016 PREOPERATIVE DIAGNOSIS: Complete vaginal prolapse after hysterectomy. POSTOPERATIVE DIAGNOSIS: Complete vaginal prolapse after hysterectomy. PROCEDURE: Colpocleisis. VP [employer] DIVERSITY: language assistant: Dr. Karen Cardenas. Second technology assistant: Dr. Donya Pérez. ANESTHESIA: General endotracheal. FLUIDS: 1000 mL crystalloid. ESTIMATED BLOOD LOSS: 25 mL. FINDINGS: Fourth degree cystocele and rectocele with complete prolapse of the vaginal vault. COMPLICATIONS: None known. DISPOSITION: Stable to recovery. BRIEF HISTORY: This is a 76-year-old female. She has a remote history of hysterectomy. She has a long history of vaginal prolapse of 4th degree. She was scheduled last year for a vaginal vault suspension, however, at the time of surgery her diabetes was not adequately controlled. She has now gotten better control of her diabetes. She also has a history of stent placement in her heart approximately a year and a half ago, and has been cleared by Cardiology. She has tried a pessary and failed. She has previously had options discussed, including colpocleisis versus vaginal vault suspension with A and P repair. She presents again for surgery. At this time, she is requesting colpocleisis. She states that she is not sexually active nor will she become sexually active in the future. She wants the procedure that has the least likelihood of permanent resolution as well as the least risk related to surgery. She understands that once colpocleisis is performed, she will have minimal vaginal depth. She understands that any repair has a risk of new onset urinary incontinence. General risks of surgery, including bleeding, infection, injury to bowel, bladder, blood vessels, ureter, or other organs, risk of thromboembolic event, were also reviewed, and she does desire to proceed. DESCRIPTION OF PROCEDURE: With the patient in dorsal lithotomy position, under adequate general endotracheal anesthesia, the perineum and vagina were prepped with a non-iodine based prep and draped in the usual fashion for vaginal surgery. Cornell catheter was placed. SCDs were in place and an appropriate time-out was held. She did receive 2 g of Ancef IV. The vaginal cuff was then grasped with Marlene clamps, and tagged with 2-0 Polysorb. The vagina was then demarcated with a marking pen. Demarcating the extent of the prolapse to approximately 3 cm from the introitus, marking the midline and then this into quadrants. A scalpel was then used to follow the marking lines. The vaginal mucosa was then undermined and excised within the demarcated regions. Then, 2-0 Polysorb was utilized in a running fashion starting with the vaginal apex at the site of the retained ligature incorporating the muscularis layer from the anterior and posterior vagina proceeding in a running fashion from left to right, imbricating the layers above. Three additional rows of running suture were placed imbricating each layer of muscularis. With this, there was no remaining muscularis. The defect was completely reduced and therefore the vaginal mucosa was closed with a running lock suture of 2-0 Polysorb. In the 3 cm demarcation between the urethral meatus and the cuff closure, the hydrodissection was performed. [id number] centimeter incision was made. The muscularis layer was from the vaginal mucosa on the right and the left, and a mattress type suture was utilized to reapproximate the muscularis layer in the midline beneath the urethra for support of the urethral neck. The vaginal mucosa was then closed. Final sponge, needle, and instrument counts were reported as correct. There were no known complications. The patient was transferred to recovery in good condition. LIZBETH / XI /[id number]
--- NOTE | 2016-12-26 14:33 | PCM48HPAN ---
Post Anesthesia Note - EVALUATION WITHIN 48HRS OF ANESTHETIC Vital Signs in Normal Range: Yes Patient Participated in Evaluation: Yes Respiratory Function Stable: Yes Airway Patent: Yes Cardiovascular Function Stable: Yes Hydration Status Stable: Yes Pain Control Satisfactory: Yes Nausea and Vomiting Control Satisfactory: Yes Mental Status Recovered: Yes - COMMENTS/OBSERVATIONS Free Text/Narrative:: Postoperative nausea treated appropriately. Patient feels fatigued and in the light of multiple previous medical problems decision is made to keep her overnight for observation.
--- NOTE | 2016-12-26 18:13 | PCM.SURGPN ---
- General Info Date of Service: 12/26/16 POD#: 0 Post-Op Diagnosis: prolapse of vaginal vault after hysterectomy. Functional Status: Reports: pain controlled, tolerating diet (nausea is improved after scopolomine patch. ), ambulating, urinating - Review of Systems General: Reports: No Symptoms Pulmonary: Reports: no symptoms Cardiovascular: Reports: No Symptoms Gastrointestinal: Reports: No symptoms Genitourinary: Reports: no symptoms Musculoskeletal: Reports: no symptoms Skin: Reports: no symptoms Neurological: Reports: No Symptoms - Patient Data Vitals - most recent: Last Vital Signs Temp 36.6 C 12/26/16 17:00 Pulse 70 12/26/16 17:00 Resp 17 12/26/16 17:00 BP 127/59 L 12/26/16 17:00 Pulse Ox 94 L 12/26/16 17:00 Weight - most recent: 77.111 kg I&O - last 24 hours: Intake & Output 12/26/16 12/26/16 12/26/16 06:59 14:59 22:59 Intake Total 2300 Output Total 575 200 Balance 1725 -200 Med Orders - Current: Current Medications Fentanyl (Sublimaze) 50 mcg IVPUSH Q5M PRN PRN Reason: Pain (severe 7-10) Stop: 12/27/16 08:31 Promethazine HCl (Phenergan) 12.5 mg IM Q4H PRN PRN Reason: Nausea Promethazine HCl (Phenadoz) 12.5 mg RECTAL Q4H PRN PRN Reason: Nausea/Vomiting Promethazine HCl (Phenergan) 25 mg IM Q6H PRN PRN Reason: Nausea/Vomiting Scopolamine (Transderm-Scop) 1.5 mg TRDERM Q72H PRN PRN Reason: Nausea Last Admin: 12/26/16 14:16 Dose: 1.5 mg Tramadol HCl (Ultram) 50 mg PO Q4H PRN PRN Reason: Pain Discontinued Medications Ephedrine Sulfate (Ephedrine Sulfate) Confirm Administered Dose 50 mg .ROUTE .STK-MED ONE Stop: 12/26/16 08:26 Fentanyl (Sublimaze) Confirm Administered Dose 100 mcg .ROUTE .STK-MED ONE Stop: 12/26/16 07:13 Fentanyl (Sublimaze) Confirm Administered Dose 250 mcg .ROUTE .STK-MED ONE Stop: 12/26/16 07:13 Fluorescein Sodium (Ak-Fluor) Confirm Administered Dose 5 ml .ROUTE .STK-MED ONE Stop: 12/26/16 07:29 Lactated Ringer's (Ringers, Lactated) 1,000 mls @ 125 mls/hr IV ASDIRECTED PILAR Stop: 12/26/16 18:00 Last Admin: 12/26/16 15:30 Dose: 125 mls/hr Lidocaine (Xylocaine-Mpf 2%) Confirm Administered Dose 10 ml .ROUTE .STK-MED ONE Stop: 12/26/16 07:12 Midazolam HCl (Versed 1 Mg/Ml) Confirm Administered Dose 2 mg .ROUTE .STK-MED ONE Stop: 12/26/16 07:13 Phenylephrine HCl (Phenylephrine In Ns 100 Mcg/Ml) Confirm Administered Dose 1 mg .ROUTE .STK-MED ONE Stop: 12/26/16 08:26 Propofol (Diprivan 20 Ml) Confirm Administered Dose 400 mg .ROUTE .STK-MED ONE Stop: 12/26/16 07:13 - Exam General: alert, oriented Neck: supple Lungs: Crackles (bilateral bases) Cardiovascular: Regular Rate, Regular Rhythm Abdomen: bowel sounds present, soft, no tenderness, no distension Extremities: no edema Skin: warm, dry, intact - Problem List & Annotations (1) Prolapse of vaginal vault after hysterectomy SNOMED Code(s): 73516312 Code(s): N99.3 - PROLAPSE OF VAGINAL VAULT AFTER HYSTERECTOMY Status: Acute Current Visit: Yes - Problem List Review Problem List Initiated/Reviewed/Updated: Yes - My Orders Last 24 Hours: Active Orders 24 hr Category Date Time Status Patient Status [ADT] Routine ADT 12/26/16 13:59 Active Antiembolic Devices [RC] PER UNIT ROUTINE Care 12/26/16 14:00 Active Notify Provider Intake and Out [RC] ASDIRECTED Care 12/26/16 13:59 Active Notify Provider Vital Signs [RC] ASDIRECTED Care 12/26/16 13:59 Active RT Incentive Spirometry [RC] Q2HWA Care 12/26/16 13:59 Active Ready for Discharge [RC] PER UNIT ROUTINE Care 12/26/16 09:28 Active Up With Assistance [RC] PER UNIT ROUTINE Care 12/26/16 13:59 Active Up ad Jolene [RC] PER UNIT ROUTINE Care 12/26/16 13:59 Active Vital Signs [RC] PER UNIT ROUTINE Care 12/26/16 13:59 Active Regular Diet [DIET] Diet 12/26/16 Dinner Active BASIC METABOLIC PANEL,BMP [CHEM] AM Lab 12/27/16 14:00 Ordered CBC WITH AUTO DIFF [HEME] AM Lab 12/27/16 05:11 Ordered Promethazine [Phenadoz] Med 12/26/16 12:10 Active 12.5 mg RECTAL Q4H PRN Promethazine [Phenergan] Med 12/26/16 12:09 Active 12.5 mg IM Q4H PRN Promethazine [Phenergan] Med 12/26/16 13:58 Active 25 mg IM Q6H PRN Scopolamine [Transderm-Scop] Med 12/26/16 13:56 Active 1.5 mg TRDERM Q72H PRN fentaNYL [Sublimaze] Med 12/26/16 08:31 Active 50 mcg IVPUSH Q5M PRN traMADol [Ultram] Med 12/26/16 13:58 Active 50 mg PO Q4H PRN Peripheral IV Discontinue [OM.PC] Routine Oth 12/26/16 13:59 Ordered Sequential Compression Device [OM.PC] Per Unit Routine Oth 12/26/16 13:59 Ordered Resuscitation Status Routine Resus Stat 12/26/16 13:58 Ordered Medication Orders Fentanyl (Sublimaze) 50 mcg IVPUSH Q5M PRN PRN Reason: Pain (severe 7-10) Stop: 12/27/16 08:31 Promethazine HCl (Phenergan) 12.5 mg IM Q4H PRN PRN Reason: Nausea Promethazine HCl (Phenadoz) 12.5 mg RECTAL Q4H PRN PRN Reason: Nausea/Vomiting Promethazine HCl (Phenergan) 25 mg IM Q6H PRN PRN Reason: Nausea/Vomiting Scopolamine (Transderm-Scop) 1.5 mg TRDERM Q72H PRN PRN Reason: Nausea Last Admin: 12/26/16 14:16 Dose: 1.5 mg Tramadol HCl (Ultram) 50 mg PO Q4H PRN PRN Reason: Pain - Assessment Assessment (Free Text/Narrative):: POD0 after colpocleiesis with postop nausea, vitals are stable, but crackles on exam. - Plan Plan (Free Text/Narrative):: Discontinue fluids, resume home meds including hydrochlorthiazide, check labs in am. May use Phenergan if needed
[2016-12-26] MEDS ORDERED: metFORMIN 500 MG Tab.ER PO SCH ×2 (21:00)
[2016-12-26] MEDS ORDERED: METFORMIN 1500 MG PO SCH (21:00)
[2016-12-27 05:11] LABS: CHLORIDE,CL 103 mmol/L (98-110); SODIUM,NA 138 mmol/L (136-146)
[2016-12-27 07:55] VITALS: BP 105/48
--- NOTE | 2016-12-27 09:00 | PCM.SURGPN ---
- General Info Date of Service: 12/27/16 POD#: 1 Post-Op Diagnosis: vaginal prolapse after hysterectomy Functional Status: Reports: pain controlled, tolerating diet, ambulating, urinating, incentive spirometry - Review of Systems General: Reports: No Symptoms HEENT: Reports: no symptoms Pulmonary: Reports: no symptoms Cardiovascular: Reports: No Symptoms Gastrointestinal: Reports: No symptoms Genitourinary: Reports: no symptoms Musculoskeletal: Reports: no symptoms Skin: Reports: no symptoms Neurological: Reports: No Symptoms Psychiatric: Reports: no symptoms - Patient Data Vitals - most recent: Last Vital Signs Temp 36.6 C 12/27/16 07:54 Pulse 64 12/27/16 07:54 Resp 16 12/27/16 04:00 BP 105/48 L 12/27/16 07:54 Pulse Ox 91 L 12/27/16 04:00 Weight - most recent: 77.111 kg I&O - last 24 hours: Intake & Output 12/26/16 12/27/16 12/27/16 22:59 06:59 14:59 Intake Total 600 Output Total 200 1200 Balance -200 -600 Lab Results last 24 hrs: Laboratory Results - last 24 hr 12/27/16 12/27/16 Range/Units 04:25 04:25 WBC 11.25 H (4.0-11.0) K/uL RBC 3.61 L (4.30-5.90) M/uL Hgb 11.3 L (12.0-16.0) g/dL Hct 32.8 L (36.0-46.0) % MCV 90.9 (80.0-98.0) fL MCH 31.3 (27.0-32.0) pg MCHC 34.5 (31.0-37.0) g/dL RDW Std Deviation 42.0 (28.0-62.0) fl RDW Coeff of Greg 13 (11.0-15.0) % Plt Count 192 (150-400) K/uL MPV 9.50 (7.40-12.00) fL Neut % (Auto) 66.3 (48.0-80.0) % Lymph % (Auto) 23.0 (16.0-40.0) % Cole % (Auto) 9.6 (0.0-15.0) % Eos % (Auto) 0.8 (0.0-7.0) % Baso % (Auto) 0.3 (0.0-1.5) % Neut # (Auto) 7.5 H (1.4-5.7) K/uL Lymph # (Auto) 2.6 H (0.6-2.4) K/uL Cole # (Auto) 1.1 H (0.0-0.8) K/uL Eos # (Auto) 0.1 (0.0-0.7) K/uL Baso # (Auto) 0.0 (0.0-0.1) K/uL Nucleated RBC % 0.0 /100WBC Nucleated RBCs # 0 K/uL Sodium 138 (136-146) mmol/L Potassium 3.3 L (3.5-5.1) mmol/L Chloride 103 (98-110) mmol/L Carbon Dioxide 26 (21-31) mmol/L BUN 13 (6.0-23.0) mg/dL Creatinine 0.8 (0.6-1.5) mg/dL Est Cr Clr Drug Dosing 48.40 mL/min Estimated GFR (MDRD) > 60.0 ml/min Glucose 95 (60-110) mg/dL Calcium 8.4 L (8.8-10.8) mg/dL Med Orders - Current: Current Medications Metformin HCl (Glucophage Xr) 1,500 mg PO BEDTIME PILAR Last Admin: 12/26/16 20:00 Dose: 1,500 mg Promethazine HCl (Phenergan) 12.5 mg IM Q4H PRN PRN Reason: Nausea Promethazine HCl (Phenadoz) 12.5 mg RECTAL Q4H PRN PRN Reason: Nausea/Vomiting Promethazine HCl (Phenergan) 25 mg IM Q6H PRN PRN Reason: Nausea/Vomiting Scopolamine (Transderm-Scop) 1.5 mg TRDERM Q72H PRN PRN Reason: Nausea Last Admin: 12/26/16 14:16 Dose: 1.5 mg Tramadol HCl (Ultram) 50 mg PO Q4H PRN PRN Reason: Pain Last Admin: 12/26/16 20:00 Dose: 50 mg Discontinued Medications Ephedrine Sulfate (Ephedrine Sulfate) Confirm Administered Dose 50 mg .ROUTE .STK-MED ONE Stop: 12/26/16 08:26 Fentanyl (Sublimaze) Confirm Administered Dose 100 mcg .ROUTE .STK-MED ONE Stop: 12/26/16 07:13 Fentanyl (Sublimaze) Confirm Administered Dose 250 mcg .ROUTE .STK-MED ONE Stop: 12/26/16 07:13 Fentanyl (Sublimaze) 50 mcg IVPUSH Q5M PRN PRN Reason: Pain (severe 7-10) Stop: 12/27/16 08:31 Fluorescein Sodium (Ak-Fluor) Confirm Administered Dose 5 ml .ROUTE .STK-MED ONE Stop: 12/26/16 07:29 Lactated Ringer's (Ringers, Lactated) 1,000 mls @ 125 mls/hr IV ASDIRECTED PILAR Stop: 12/26/16 18:00 Last Admin: 12/26/16 15:30 Dose: 125 mls/hr Lidocaine (Xylocaine-Mpf 2%) Confirm Administered Dose 10 ml .ROUTE .STK-MED ONE Stop: 12/26/16 07:12 Midazolam HCl (Versed 1 Mg/Ml) Confirm Administered Dose 2 mg .ROUTE .STK-MED ONE Stop: 12/26/16 07:13 Phenylephrine HCl (Phenylephrine In Ns 100 Mcg/Ml) Confirm Administered Dose 1 mg .ROUTE .STK-MED ONE Stop: 12/26/16 08:26 Propofol (Diprivan 20 Ml) Confirm Administered Dose 400 mg .ROUTE .STK-MED ONE Stop: 12/26/16 07:13 - Exam General: alert, oriented HEENT: Pupils equal Neck: supple Lungs: Normal respiratory effort, Crackles (few on right base, much improved) Cardiovascular: Regular Rate, Regular Rhythm Abdomen: bowel sounds present, soft, no tenderness, no distension Extremities: no edema Psy/Mental Status: alert, normal affect, normal mood - Problem List & Annotations (1) Prolapse of vaginal vault after hysterectomy SNOMED Code(s): 07261226 Code(s): N99.3 - PROLAPSE OF VAGINAL VAULT AFTER HYSTERECTOMY Status: Acute Current Visit: Yes - Problem List Review Problem List Initiated/Reviewed/Updated: Yes - My Orders Last 24 Hours: Active Orders 24 hr Category Date Time Status Patient Status [ADT] Routine ADT 12/26/16 13:59 Active Antiembolic Devices [RC] Q12H Care 12/26/16 14:00 Active Communication Order [RC] ROUTINE Care 12/26/16 18:33 Active Notify Provider Intake and Out [RC] ASDIRECTED Care 12/26/16 13:59 Active Notify Provider Vital Signs [RC] ASDIRECTED Care 12/26/16 13:59 Active RT Incentive Spirometry [RC] Q2HWA Care 12/26/16 13:59 Active Ready for Discharge [RC] PER UNIT ROUTINE Care 12/26/16 09:28 Active Up With Assistance [RC] PER UNIT ROUTINE Care 12/26/16 13:59 Active Up ad Jolene [RC] PER UNIT ROUTINE Care 12/26/16 13:59 Active Vital Signs [RC] Q4H Care 12/26/16 13:59 Active Regular Diet [DIET] Diet 12/26/16 Dinner Active Promethazine [Phenadoz] Med 12/26/16 12:10 Active 12.5 mg RECTAL Q4H PRN Promethazine [Phenergan] Med 12/26/16 12:09 Active 12.5 mg IM Q4H PRN Promethazine [Phenergan] Med 12/26/16 13:58 Active 25 mg IM Q6H PRN Scopolamine [Transderm-Scop] Med 12/26/16 13:56 Active 1.5 mg TRDERM Q72H PRN metFORMIN [Glucophage XR] Med 12/26/16 21:00 Active 1,500 mg PO BEDTIME traMADol [Ultram] Med 12/26/16 13:58 Active 50 mg PO Q4H PRN Peripheral IV Discontinue [OM.PC] Routine Oth 12/26/16 13:59 Ordered Sequential Compression Device [OM.PC] Per Unit Routine Oth 12/26/16 13:59 Ordered Resuscitation Status Routine Resus Stat 12/26/16 13:58 Ordered Medication Orders Metformin HCl (Glucophage Xr) 1,500 mg PO BEDTIME PILAR Last Admin: 12/26/16 20:00 Dose: 1,500 mg Promethazine HCl (Phenergan) 12.5 mg IM Q4H PRN PRN Reason: Nausea Promethazine HCl (Phenadoz) 12.5 mg RECTAL Q4H PRN PRN Reason: Nausea/Vomiting Promethazine HCl (Phenergan) 25 mg IM Q6H PRN PRN Reason: Nausea/Vomiting Scopolamine (Transderm-Scop) 1.5 mg TRDERM Q72H PRN PRN Reason: Nausea Last Admin: 12/26/16 14:16 Dose: 1.5 mg Tramadol HCl (Ultram) 50 mg PO Q4H PRN PRN Reason: Pain Last Admin: 12/26/16 20:00 Dose: 50 mg - Assessment Assessment (Free Text/Narrative):: POD#1 after colpocleisis, stable, minimal pain, nausea resolved. Pulmonary exam is improved, recheck vitals prior to discharge. - Plan Plan (Free Text/Narrative):: Discharge instructions reviewed, followup in 2 weeks, restart Plavix and aspirin today.
== END 2016-12-27 09:30 | disposition home or self-care (01) ==
LOC: MW.SDS 06:26 → MW.MS 14:42 → MW.SDS 12-27 09:30
PROVIDERS: ATTEND Obstetrics & Gynecology
DX: N99.3 Prolapse of vaginal vault after hysterectomy (principal); I10 Essential (primary) hypertension; K21.9 Gastro-esophageal reflux disease without esophagitis; E11.9 Type 2 diabetes mellitus without complications; Z88.1 Allergy status to other antibiotic agents; Z88.2 Allergy status to sulfonamides; Z88.8 Allergy status to other drugs, medicaments and biological substances; Z91.041 Radiographic dye allergy status; Z79.82 Long term (current) use of aspirin; Z79.899 Other long term (current) drug therapy; E78.5 Hyperlipidemia, unspecified; Z90.49 Acquired absence of other specified parts of digestive tract; Z98.890 Other specified postprocedural states; E66.9 Obesity, unspecified; Z79.01 Long term (current) use of anticoagulants; Z90.710 Acquired absence of both cervix and uterus; Z87.891 Personal history of nicotine dependence
CPT/HCPCS: 36415; 57120; 80048; 82962; 85025; A9270; J2250; J3010; J7120; 00942; 88302; J2704

== ENCOUNTER 2017-08-01 21:10 | Observation (INO) | payer MEDICARE, OTHER ==
[2017-08-01] MEDS ORDERED: Aspirin 81 MG Tab.Chew PO ONE (21:13)
--- NOTE | 2017-08-01 21:17 | EDM.PDOC ---
ED HPI GENERAL MEDICAL PROBLEM - General Stated Complaint: CHEST PAIN Time Seen by Provider: 08/01/17 21:15 Source of Information: Reports: Patient History Limitations: Reports: No Limitations - History of Present Illness INITIAL COMMENTS - FREE TEXT/NARRATIVE: HISTORY AND PHYSICAL: History of present illness: Patient is a 76-year-old female who presents to the emergency room with complaints of epigastric and midsternal chest pain which started at 8 PM this evening. She states initially she thought it was heartburn but did not resolve after taking an [id number] antacid. She states she has had similar episodes which turned out to be heartburn. She states she was concerned she did feel clammy during the initial episode as well. She denies any fever, chills, nausea, vomiting, abdominal pain or shortness of breath. Patient has a past medical history of diabetes type 2, elevated cholesterol, TIA , CVA, ID on 08/23/2014. Review of systems: As per history of present illness and below otherwise all systems reviewed and negative. Past medical history: As per history of present illness and as reviewed below otherwise noncontributory. Surgical history: As per history of present illness and as reviewed below otherwise noncontributory. Social history: No reported history of drug or alcohol abuse. Family history: As per history of present illness and as reviewed below otherwise noncontributory. Physical exam: Gen.: Nontoxic appearing 76-year-old female. Alert and oriented. Appears in no acute distress. HEENT: Atraumatic, normocephalic, pupils reactive, negative for conjunctival pallor or scleral icterus, mucous membranes moist, throat clear, neck supple, nontender, trachea midline. No trismus or drooling. No meningeal signs. Lungs: Clear to auscultation, breath sounds equal bilaterally, chest nontender. Reproducible. Heart: S1S2, regular rate and rhythm-no overt murmurs. Abdomen: Soft, nondistended, nontender. Negative for masses or hepatosplenomegaly. Negative for costovertebral tenderness. Pelvis: Stable nontender. Genitourinary: Deferred. Rectal: Deferred. Extremities: Atraumatic, negative for cords or calf pain. Neurovascular unremarkable. Neuro: Awake, alert, oriented. Cranial nerves II through XII unremarkable. Cerebellum unremarkable. Motor and sensory unremarkable throughout. Exam nonfocal. Prior to giving the nitroglycerin tablets the patient requested to use the bathroom. She did have a large bowel movement. Shortly after she states she feels "much better and not sweaty". Her pain currently as a 0 out of 10. No nitroglycerin was given at this time. We did discuss that due to her past medical history and risk factors she will be offered admission to rule out ID, as long as lap results returned back normal. She voices understanding and is agreeable for admission. Landy Aburto was consulted on the case and is agreeable to admit this patient to observation. Diagnostics: CBC, CMP, troponin, EKG, chest x-ray Therapeutics: Aspirin, nitroglycerin, normal saline Impression: Chest pain Plan: Observation admission with telemetry per Dr. Aburto Definitive disposition and diagnosis as appropriate pending reevaluation and review of above. Onset: Today Duration: Hour(s): Location: Reports: Chest chest Pain Score (Numeric/FACES): 0 - Related Data Allergies Allergy/AdvReac Type Severity Reaction Status Date / Time codeine Allergy Hives Verified 08/01/17 21:16 Iodine and Iodide Containing Allergy Airway Verified 08/01/17 21:16 Produc Tightness red dye Allergy Airway Verified 08/01/17 21:16 Tightness sulfamethoxazole Allergy Hives Verified 08/01/17 21:16 [From Bactrim] trimethoprim [From Bactrim] Allergy Hives Verified 08/01/17 21:16 ornade Spansules Allergy Hives Uncoded 08/01/17 21:16 Home Meds: Home Meds Clopidogrel [Plavix] 75 mg PO DAILY 04/23/15 [History] Hydrochlorothiazide 25 mg PO DAILY 04/23/15 [History] Lisinopril [Prinivil] 20 mg PO DAILY 04/23/15 [History] Omeprazole 20 mg PO DAILY 04/23/15 [History] Aspirin [Adult Low Dose Aspirin EC] 1 tab PO DAILY 12/03/15 [History] Carvedilol 6.25 mg PO BID 12/03/15 [History] Cetirizine [ZyrTEC] 10 mg PO DAILY 12/03/15 [History] Glimepiride [Amaryl] 4 mg PO DAILY 12/03/15 [History] atorvaSTATin [Lipitor] 5 mg PO DAILY 12/22/16 [History] metFORMIN [Glucophage] 250 mg PO BEDTIME 08/01/17 [History] Past Medical History HEENT History: Reports: Other (See Below) Other HEENT History: wears glasses, has upper denture Cardiovascular History: Reports: High Cholesterol, Hypertension, ID, Other (See Below) Other Cardiovascular History: ID in 2014- no stents, TIA in 2002- no residual Respiratory History: Reports: None Gastrointestinal History: Reports: GERD Genitourinary History: Reports: None [employer] History: Reports: Musculoskeletal History: Reports: None Neurological History: Reports: TIA Other Neuro History: TIA- 2002, no residual Psychiatric History: Reports: None Endocrine/Metabolic History: Reports: Diabetes, Type II (since , the same surgery canceled last time due to glucose levels above 600, A1C down to 8.1), Obesity/BMI 30+ Hematologic History: Reports: Anticoagulation Therapy Other Hematologic History: takes plavix Immunologic History: Reports: None Oncologic (Cancer) History: Reports: None Dermatologic History: Reports: None - Past Surgical History Head Surgeries/Procedures: Reports: None HEENT Surgical History: Reports: None Cardiovascular Surgical History: Reports: None Respiratory Surgical History: Reports: None GI Surgical History: Reports: Cholecystectomy (open) Female Surgical History: Reports: Hysterectomy (TVH), Other (See Below) Other Female Surgeries/Procedures: Anterior repair Endocrine Surgical History: Reports: None Neurological Surgical History: Reports: None Musculoskeletal Surgical History: Reports: None Oncologic Surgical History: Reports: None Dermatological Surgical History: Reports: None Social & Family History - Family History Family Medical History: Noncontributory - Tobacco Use Smoking Status *Q: Former Smoker Second Hand Smoke Exposure: No - Recreational Drug Use Recreational Drug Use: No Drug Use in Last 12 Months: No ED ROS GENERAL - Review of Systems Review Of Systems: ROS reveals no pertinent complaints other than HPI. ED EXAM, GENERAL - Physical Exam Exam: See Below (See dictation) Course - Vital Signs Last Recorded V/S: Last Vital Signs Temp 97.6 F 08/01/17 21:16 Pulse 85 08/01/17 21:50 Resp 16 08/01/17 21:50 BP 169/78 H 08/01/17 21:50 Pulse Ox 95 08/01/17 21:50 - Orders/Labs/Meds Orders: Active Orders 24 hr Category Date Time Status Cardiac Monitoring [RC] . DIRECTED Care 08/01/17 21:13 Active EKG Documentation Completion [RC] STAT Care 08/01/17 21:13 Active Chest 1V Frontal [CR] Stat Exams 08/01/17 21:13 Taken COMPREHENSIVE METABOLIC PN,CMP [CHEM] Stat Lab 08/01/17 21:26 Received TROPONIN I [CHEM] Stat Lab 08/01/17 21:26 Received Nitroglycerin [Nitrostat] Med 08/01/17 21:29 Active 0.4 mg SL Q5M PRN Sodium Chloride 0.9% [Normal Saline] 1,000 ml Med 08/01/17 21:30 Active IV ASDIRECTED Medication Orders Sodium Chloride (Normal Saline) 1,000 mls @ 100 mls/hr IV ASDIRECTED PILAR Last Admin: 08/01/17 21:34 Dose: 100 mls/hr Nitroglycerin (Nitrostat) 0.4 mg SL Q5M PRN PRN Reason: Chest Pain Labs: Laboratory Tests 08/01/17 Range/Units 21:26 WBC 9.09 (4.0-11.0) K/uL RBC 4.09 L (4.30-5.90) M/uL Hgb 13.2 (12.0-16.0) g/dL Hct 37.7 (36.0-46.0) % MCV 92.2 (80.0-98.0) fL MCH 32.3 H (27.0-32.0) pg MCHC 35.0 (31.0-37.0) g/dL RDW Std Deviation 42.0 (28.0-62.0) fl RDW Coeff of Greg 13 (11.0-15.0) % Plt Count 211 (150-400) K/uL MPV 9.70 (7.40-12.00) fL Neut % (Auto) 53.2 (48.0-80.0) % Lymph % (Auto) 35.1 (16.0-40.0) % Ware % (Auto) 8.3 (0.0-15.0) % Eos % (Auto) 3.0 (0.0-7.0) % Baso % (Auto) 0.4 (0.0-1.5) % Neut # (Auto) 4.8 (1.4-5.7) K/uL Lymph # (Auto) 3.2 H (0.6-2.4) K/uL Ware # (Auto) 0.8 (0.0-0.8) K/uL Eos # (Auto) 0.3 (0.0-0.7) K/uL Baso # (Auto) 0.0 (0.0-0.1) K/uL Nucleated RBC % 0.0 /100WBC Nucleated RBCs # 0 K/uL Meds: Medications Generic Name Dose Route Start Last Admin Trade Name Freq PRN Reason Stop Dose Admin Sodium Chloride 1,000 mls @ 100 mls/hr 08/01/17 21:30 08/01/17 21:34 Normal Saline IV 100 mls/hr ASDIRECTED PILAR Administration Nitroglycerin 0.4 mg 08/01/17 21:29 Nitrostat SL Q5M PRN Chest Pain Discontinued Medications Generic Name Dose Route Start Last Admin Trade Name Freq PRN Reason Stop Dose Admin Aspirin 324 mg 08/01/17 21:13 08/01/17 21:32 Aspirin PO 08/01/17 21:14 324 mg ONETIME ONE Administration Departure - Departure Time of Disposition: 22:04 Disposition: Refer to Observation Clinical Impression: Chest pain, rule out acute myocardial infarction Referrals: PCP,None [Primary Care Provider] - - My Orders Last 24 Hours: My Active Orders 08/01/17 21:13 Cardiac Monitoring [RC] . DIRECTED EKG Documentation Completion [RC] STAT Chest 1V Frontal [CR] Stat 08/01/17 21:26 COMPREHENSIVE METABOLIC PN,CMP [CHEM] Stat TROPONIN I [CHEM] Stat 08/01/17 21:29 Nitroglycerin [Nitrostat] 0.4 mg SL Q5M PRN 08/01/17 21:30 Sodium Chloride 0.9% [Normal Saline] 1,000 ml IV ASDIRECTED - Assessment/Plan Last 24 Hours: My Active Orders 08/01/17 21:13 Cardiac Monitoring [RC] . DIRECTED EKG Documentation Completion [RC] STAT Chest 1V Frontal [CR] Stat 08/01/17 21:26 COMPREHENSIVE METABOLIC PN,CMP [CHEM] Stat TROPONIN I [CHEM] Stat 08/01/17 21:29 Nitroglycerin [Nitrostat] 0.4 mg SL Q5M PRN 12/20/17 21:30 Sodium Chloride 0.9% [Normal Saline] 1,000 ml IV ASDIRECTED
[2017-08-01] MEDS ORDERED: Nitroglycerin 0.4 MG Tab.SL SL PRN (21:29)
[2017-08-01] MEDS ORDERED: Sodium Chloride 0.9% 1,000 ML IV SCH (21:30)
[2017-08-01 21:58] LABS: CHLORIDE,CL 104 mmol/L (98-110); SODIUM,NA 139 mmol/L (136-146)
--- NOTE | 2017-08-01 22:50 | PCM.HP ---
H&P History of Present Illness - General Date of Service: 08/01/17 Admit Problem/Dx: Admission Diagnosis/Problem Admission Diagnosis/Problem Chest pain, rule out acute myocardial infarction Source of Information: Patient, Family History Limitations: Reports: No Limitations - History of Present Illness Initial Comments - Free Text/Narative: 76 yo female who presented to ED with chief complaint of left substernal and epigastric pain that had started at 1999 this evening. Pain was "crampy" without radiation or associated diaphoresis, sob, nausea or vomiting. States that the pain went away on its own when she arrived at the emergency room. She has had similar pain in the past that was relieved with antacids but this time the pain did not seem to improve after taking an over the counter antacid. She denied any palpitiations, shortness of breath, syncopal episodes or focal neurologic deficits. She does admit to feeling somewhat stressed as she was [place]. In addition she states that she was diagnosed with ottis media of the right ear on Monday 07/30 and is taking amoxicillin for this. She has had an MA approximately three years ago. Dr. Park in [place] did a cath but stated that she did not have major vessel disease and believed it was a "stress" MA. She was placed on medications for this and states that she is compliant. She sees Dr. Liu in [place] as her PCP. In the ED ECG showed NSR with a left fasicular block but no signs of acute ischemia. CBC, CMP and initial troponin were unremarkable. CXR was unremarkable as well. She received no nitro while in ED. She will be admitted to obs for cardiac r/o with serial troponins chest Pain Score (Numeric/FACES): 0 - Related Data Allergies/Adverse Reactions: Allergies Allergy/AdvReac Type Severity Reaction Status Date / Time codeine Allergy Hives Verified 08/01/17 21:16 Iodine and Iodide Containing Allergy Airway Verified 08/01/17 21:16 Produc Tightness red dye Allergy Airway Verified 08/01/17 21:16 Tightness sulfamethoxazole Allergy Hives Verified 08/01/17 21:16 [From Bactrim] trimethoprim [From Bactrim] Allergy Hives Verified 08/01/17 21:16 ornade Spansules Allergy Hives Uncoded 08/01/17 21:16 Home Medications: Home Meds Clopidogrel [Plavix] 75 mg PO DAILY 04/23/15 [History] Hydrochlorothiazide 25 mg PO DAILY 04/23/15 [History] Lisinopril [Prinivil] 20 mg PO DAILY 04/23/15 [History] Omeprazole 20 mg PO DAILY 04/23/15 [History] Aspirin [Adult Low Dose Aspirin EC] 1 tab PO DAILY 12/03/15 [History] Carvedilol 6.25 mg PO BID 12/03/15 [History] Cetirizine [ZyrTEC] 10 mg PO DAILY 12/03/15 [History] Glimepiride [Amaryl] 4 mg PO DAILY 12/03/15 [History] atorvaSTATin [Lipitor] 5 mg PO DAILY 12/22/16 [History] metFORMIN [Glucophage] 250 mg PO BEDTIME 08/01/17 [History] Past Medical History HEENT History: Reports: Other (See Below) Other HEENT History: wears glasses, has upper denture Cardiovascular History: Reports: High Cholesterol, Hypertension, MA, Other (See Below) Other Cardiovascular History: MA in 2014- no stents, TIA in 2002- no residual Respiratory History: Reports: None Gastrointestinal History: Reports: GERD Genitourinary History: Reports: None 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: Musculoskeletal History: Reports: None Neurological History: Reports: TIA Other Neuro History: TIA- 2002, no residual Psychiatric History: Reports: None Endocrine/Metabolic History: Reports: Diabetes, Type II (since , the same surgery canceled last time due to glucose levels above 600, A1C down to 8.1), Obesity/BMI 30+ Hematologic History: Reports: Anticoagulation Therapy Other Hematologic History: takes plavix Immunologic History: Reports: None Oncologic (Cancer) History: Reports: None Dermatologic History: Reports: None - Past Surgical History Head Surgeries/Procedures: Reports: None HEENT Surgical History: Reports: None Cardiovascular Surgical History: Reports: None Respiratory Surgical History: Reports: None GI Surgical History: Reports: Cholecystectomy (open) Female Surgical History: Reports: Hysterectomy (TVH), Other (See Below) Other Female Surgeries/Procedures: Anterior repair Endocrine Surgical History: Reports: None Neurological Surgical History: Reports: None Musculoskeletal Surgical History: Reports: None Oncologic Surgical History: Reports: None Dermatological Surgical History: Reports: None Social & Family History - Family History Family Medical History: Noncontributory - Tobacco Use Smoking Status *Q: Former Smoker Second Hand Smoke Exposure: No - Recreational Drug Use Recreational Drug Use: No Drug Use in Last 12 Months: No H&P Review of Systems - Review of Systems: Review Of Systems: See Below General: Denies: Fever, Chills, Malaise, Weakness, Fatigue, Diaphoresis HEENT: Reports: Ear Pain. Denies: Contact Lenses, Headaches, Sore Throat Pulmonary: Denies: Shortness of Breath, Wheezing, Cough, Sputum Cardiovascular: Reports: Chest Pain. Denies: Palpitations, Lightheadedness, Syncope Gastrointestinal: Denies: Abdominal Pain, Black Stool, Bloody Stool Genitourinary: Denies: Dysuria Musculoskeletal: Denies: Neck Pain, Leg Pain Skin: Denies: Cyanosis Psychiatric: Denies: Confusion Neurological: Denies: Confusion, Dizziness, Headache Hematologic/Lymphatic: Denies: Anemia Exam - Exam Exam: See Below - Vital Signs Vital Signs: Last Vital Signs Temp 97.6 F 08/01/17 21:16 Pulse 85 08/01/17 21:50 Resp 16 08/01/17 21:50 BP 169/78 H 08/01/17 21:50 Pulse Ox 95 08/01/17 21:50 Weight: 77.2 kg - Exam Quality Assessment: DVT Prophylaxis General: Alert, Oriented, Cooperative HEENT: Conjunctiva Clear, EACs Clear, EOMI, Hearing Intact, Mucosa Moist & [place] , Nares Patent, Normal Nasal Septum, Posterior Pharynx Clear, PERRLA Neck: Supple, Trachea Midline, 2 Lungs: Clear to Auscultation, Normal Respiratory Effort Cardiovascular: Regular Rate, Regular Rhythm, Normal S1, Normal S2 GI/Abdominal Exam: Normal Bowel Sounds, Soft, Non-Tender, No Organomegaly, No Distention, No Abnormal Bruit, No Mass Back Exam: Normal Inspection Extremities: Normal Inspection, Non-Tender, No Pedal Edema, Normal Capillary Refill Peripheral Pulses: 2+: Radial (L), Radial (R), Posterior Tibial (L), Posterior Tibial (R), Dorsalis Pedis (L), Dorsalis Pedis (R) Skin: Warm, Dry, Intact Neurological: Cranial Nerves Intact Neuro Extensive - Mental Status: Alert, Oriented x3, Normal Mood/Affect, Normal Cognition Neuro Extensive - Motor, Sensory, Reflexes: CN II-XII Intact Psychiatric: Alert, Normal Affect, Normal Mood - Patient Data Result Diagrams: 08/01/17 21:26 08/01/17 21:26 *Q Meaningful Use (ADM) - VTE *Q VTE Criteria *Q: - Stroke *Q Stroke Criteria *Q: - AMI *Q AMI Criteria *Q: - Problem List (1) Diabetes mellitus SNOMED Code(s): 30822821 ICD Code: E11.9 - TYPE 2 DIABETES MELLITUS WITHOUT COMPLICATIONS Status: Chronic Priority: Low Current Visit: Yes Qualifiers: Diabetes mellitus type: type 2 Diabetes mellitus complication status: without complication Diabetes mellitus intermediate manager insulin use: without assisted use Qualified Code(s): E11.9 - Type 2 diabetes mellitus without complications (2) Chest pain, rule out acute myocardial infarction SNOMED Code(s): 44174233 ICD Code: R07.9 - CHEST PAIN, UNSPECIFIED Status: Acute Priority: High Current Visit: Yes (3) Hypertension SNOMED Code(s): 74598370 ICD Code: I10 - ESSENTIAL (PRIMARY) HYPERTENSION Status: Acute Current Visit: Yes Qualifiers: Hypertension type: essential hypertension Qualified Code(s): I10 - Essential (primary) hypertension (4) CAD (coronary artery disease) SNOMED Code(s): 96220677 ICD Code: I25.10 - ATHSCL HEART DISEASE OF [place] CORONARY ARTERY W/O ANG PCTRS Status: Acute Current Visit: Yes Qualifiers: Coronary Disease-Associated Artery/Lesion type: unspecified vessel or lesion type [place] vs. transplanted heart: [place] heart Associated angina: without angina Qualified Code(s): I25.10 - Atherosclerotic heart disease of [place] coronary artery without angina pectoris Problem List Initiated/Reviewed/Updated: Yes Orders Last 24hrs: Medication Orders Sodium Chloride (Normal Saline) 1,000 mls @ 100 mls/hr IV ASDIRECTED [facility] Last Admin: 08/01/17 21:34 Dose: 100 mls/hr Assessment/Plan Comment:: 76 yo female admitted 08/01/17 for chest pain r/o with pmh of MA, htn, type II diabetes, and active right otitis media. Chest Pain: On description it sounds more stress and GERD associated but with strong past history will observe overnight with serial troponins. Placed on telemetry. Htn: Stable restart home meds. Diabetes: ISS Otitis Media: Continue amoxicillin prescription VTE: Heparin Dispo: tomorrow pending.
[2017-08-01] MEDS ORDERED: Ondansetron 4 MG Tab.DIS PO PRN (22:52)
[2017-08-01] MEDS ORDERED: Acetaminophen 325 MG Tab PO PRN (22:52)
[2017-08-01] MEDS: Heparin Sodium 5,000 Units/ML Vial SUBCUT SCH (23:40)
[2017-08-02 04:33] LABS: CHLORIDE,CL 107 mmol/L (98-110); SODIUM,NA 140 mmol/L (136-146)
[2017-08-02] MEDS: Heparin Sodium 5,000 Units/ML Vial SUBCUT SCH (06:32)
[2017-08-02] MEDS ORDERED: Insulin Aspart 100 Units/ML 3 ML Pen SUBCUT SCH (07:30)
[2017-08-02] MEDS ORDERED: Aspirin 81 MG Tab.EC PO SCH (09:00)
[2017-08-02] MEDS ORDERED: atorvaSTATin 10 MG Tab PO SCH (09:00)
[2017-08-02] MEDS ORDERED: Amoxicillin/Clavulanate K 875-125 MG Tab***own med PO SCH (09:00)
[2017-08-02] MEDS ORDERED: Carvedilol 3.125 MG Tab PO SCH (09:00)
[2017-08-02] MEDS ORDERED: Lisinopril 10 MG Tab PO SCH (09:00)
[2017-08-02] MEDS ORDERED: Hydrochlorothiazide 25 MG Tab PO SCH (09:00)
[2017-08-02] MEDS ORDERED: Amoxicillin/Clavulanate K 875-125 MG Tab PO SCH (09:00)
[2017-08-02] MEDS ORDERED: Omeprazole 20 MG Cap.CR PO SCH (09:00)
[2017-08-02] MEDS ORDERED: Cetirizine 10 MG Tab PO SCH (09:00)
[2017-08-02] MEDS ORDERED: Clopidogrel 75 MG Tab PO SCH (09:00)
--- NOTE | 2017-08-02 09:18 | CR ---
EXAM DATE: 08/01/17 PATIENT'S AGE: 76 Patient: DANNY SWEENEY Facility: [place], [place] Site . Site : [id number] Study: XRay Chest [id number] 9:54:06 PM Ordering Physician: Doctor Morin Final Report: INDICATION: chest pain TECHNIQUE: Chest 1 view COMPARISON: October 26, 2016 FINDINGS: Cardiovascular and mediastinum: Stable cardiac silhouette. Mediastinum is within normal limits. Lungs and pleural space: No focal consolidation. Scarring. No sign of pleural effusion. No pneumothorax. Bones and soft tissues: Degenerative changes. IMPRESSION: No acute cardiopulmonary disease. Dictated by Gianni Gooden MD @ 08/01/2017 10:27:14 PM Dictated by: Gianni Gooden MD @ 08/01/2017 22:27:21 (Electronic Signature) Report Signed by Proxy. [facility]
--- NOTE | 2017-08-02 11:23 | PCM.DCSUM1 ---
Discharge Summary - Hospital Course HPI Initial Comments: 76 yo female admitted 08/01/17 for atypical chest pain r/o with pmh of MO, htn, type II diabetes, and active right otitis media. Brief History: 76 yo female presented to ED with chief complaint of left substernal and epigastric pain that had started at 2000 on evening of admission. Pain was "crampy" without radiation or associated diaphoresis, sob, nausea or vomiting. States that the pain went away on its own when she arrived at the emergency room. She has had similar pain in the past that was relieved with antacids but this time the pain did not seem to improve after taking an over the counter antacid. She has had an MO in the past and this was not similar pain. She denied any palpitiations, shortness of breath, syncopal episodes or focal neurologic deficits. She did admit to feeling somewhat stressed as she was [place] shopping. In addition she stated that she was diagnosed with ottis media of the right ear on Monday 07/30 and was taking amoxicillin for this. - Discharge Data Discharge Date: 08/02/17 Discharge Disposition: Home, Self-Care 01 Condition: Good - Discharge Diagnosis/Problem(s) (1) Diabetes mellitus SNOMED Code(s): 57571172 ICD Code: E11.9 - TYPE 2 DIABETES MELLITUS WITHOUT COMPLICATIONS Status: Chronic Priority: Low Current Visit: Yes Qualifiers: Diabetes mellitus type: type 2 Diabetes mellitus complication status: without complication Diabetes mellitus detention insulin use: without detention use Qualified Code(s): E11.9 - Type 2 diabetes mellitus without complications (2) Chest pain, rule out acute myocardial infarction SNOMED Code(s): 71363207 ICD Code: R07.9 - CHEST PAIN, UNSPECIFIED Status: Acute Priority: High Current Visit: Yes (3) Hypertension SNOMED Code(s): 84596256 ICD Code: I10 - ESSENTIAL (PRIMARY) HYPERTENSION Status: Chronic Priority : Medium Current Visit: Yes Qualifiers: Hypertension type: essential hypertension Qualified Code(s): I10 - Essential (primary) hypertension (4) CAD (coronary artery disease) SNOMED Code(s): 76930217 ICD Code: I25.10 - ATHSCL HEART DISEASE OF [place] CORONARY ARTERY W/O ANG PCTRS Status: Chronic Priority: High Current Visit: Yes Qualifiers: Coronary Disease-Associated Artery/Lesion type: unspecified vessel or lesion type [place] vs. transplanted heart: [place] heart Associated angina: without angina Qualified Code(s): I25.10 - Atherosclerotic heart disease of [place] coronary artery without angina pectoris - Patient Summary/Data Hospital Course: In the ED ECG showed NSR with a left fasicular block but no signs of acute ischemia. CBC, CMP and initial troponin were unremarkable. CXR was unremarkable as well. She received no nitro while in ED. She will be admitted to obs for cardiac r/o with serial troponins. During her hospital stay she did not have any further episodes of chest pain. Serial troponins were negative. Amoxicillin was continued for her acute otitis media. - Patient Instructions Diet: Heart Healthy Diet Activity: Rest and Relax Today Driving: Do Not Drive Showering/Bathing: May Shower Notify Provider of: Fever, Increased Pain, Drainage, Nausea and/or Vomiting Other/Special Instructions: Follow-up with Dr. Liu at planned clinic visit next . Follow-up with Dr. Park with scheduled visit. Return to ED if return of chest pain - Discharge Plan Home Medications: Home Meds Clopidogrel [Plavix] 75 mg PO DAILY 04/23/15 [History] Hydrochlorothiazide 25 mg PO DAILY 04/23/15 [History] Lisinopril [Prinivil] 20 mg PO DAILY 04/23/15 [History] Omeprazole 20 mg PO DAILY 04/23/15 [History] Aspirin [Adult Low Dose Aspirin EC] 1 tab PO DAILY 12/03/15 [History] Carvedilol 6.25 mg PO BID 12/03/15 [History] Cetirizine [ZyrTEC] 10 mg PO DAILY 12/03/15 [History] Glimepiride [Amaryl] 4 mg PO DAILY 12/03/15 [History] Amoxicillin/Potassium Clav [Amox-Clav 875-125 mg Tablet] 1 tab PO Q12HR [History] atorvaSTATin [Lipitor] 5 mg PO DAILY 08/01/17 [History] metFORMIN [Glucophage] 250 mg PO BEDTIME 08/01/17 [History] Forms: ED Department Discharge Referrals: Yrn Park MD [Ordering Only Provider] - 08/29/17 2:15 pm - Discharge Summary/Plan Comment DC Time >30 min.: Yes Discharge Summary/Plan Comment: 76 yo female admitted 08/01/17 for atypical chest pain r/o with pmh of MO, htn, type II diabetes, and active right otitis media. 76 yo female presented to ED with chief complaint of left substernal and epigastric pain that had started at 1999 on evening of admission. Pain was "crampy" without radiation or associated diaphoresis, sob, nausea or vomiting. States that the pain went away on its own when she arrived at the emergency room. She has had similar pain in the past that was relieved with antacids but this time the pain did not seem to improve after taking an over the counter antacid. She has had an MO in the past and this was not similar pain. She denied any palpitiations, shortness of breath, syncopal episodes or focal neurologic deficits. She did admit to feeling somewhat stressed as she was [place] shopping. In addition she stated that she was diagnosed with ottis media of the right ear on Monday 07/30 and was taking amoxicillin for this. She has had an MO approximately three years ago. Dr. Park in [place] did a cath but stated that she did not have major vessel disease and believed it was a "stress" MO. She was placed on medications for this and stated that she has been "very" compliant. She has not seen Dr. Park in sometime. She sees Dr. Liu in [place] as her PCP. In the ED ECG showed NSR with a left fasicular block but no signs of acute ischemia. CBC, CMP and initial troponin were unremarkable. CXR was unremarkable as well. She received no nitro while in ED. She will be admitted to obs for cardiac r/o with serial troponins. During her hospital stay she did not have any further episodes of chest pain. Serial troponins were negative. Amoxicillin was continued for her acute otitis media. She was discharged in good condition with follow-up with her PCP Dr. Liu in [place] as well as a cardiolgoy follow-up with Dr. Park in [place]. 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 She was instructed to return to ED if she had any further episodes of chest pain. - General Info Date of Service: 08/02/17 Admission Dx/Problem (Free Text: Admission Diagnosis/Problem Admission Diagnosis/Problem Chest pain, rule out acute myocardial infarction Subjective Update: Doing well this morning. No chest pain since being in hospital. Eating and drinking well. Slept "ok". Ready to go home. Has appointment already scheduled with Dr. Liu PCP on of next week. - Review of Systems General: Denies: Fever, Weakness, Fatigue HEENT: Denies: Dysphasia, Headaches, Visual Changes Pulmonary: Denies: Shortness of Breath, Pleuritic Chest Pain Cardiovascular: Denies: Chest Pain, Palpitations, Edema Gastrointestinal: Denies: Abdominal Pain, Nausea, Vomiting Genitourinary: Denies: Dysuria, Hematuria Musculoskeletal: Denies: Neck Pain, Leg Pain Skin: Denies: Cyanosis Neurological: Denies: Confusion, Dizziness, Headache Psychiatric: Denies: Confusion - Patient Data Vitals - Most Recent: Last Vital Signs Temp 97.3 F 08/02/17 08:00 Pulse 71 08/02/17 09:03 Resp 20 08/02/17 08:00 BP 149/66 H 08/02/17 09:03 Pulse Ox 93 L 08/02/17 08:00 Weight - Most Recent: 77.655 kg I&O - Last 24 hours: Intake & Output 08/01/17 08/02/17 08/02/17 22:59 06:59 14:59 Intake Total 200 1000 Output Total 700 Balance -500 1000 Lab Results - Last 24 hrs: Laboratory Results - last 24 hr 08/02/17 08/02/17 08/02/17 Range/Units 03:44 03:44 03:44 WBC 7.64 (4.0-11.0) K/uL RBC 3.64 L (4.30-5.90) M/uL Hgb 11.6 L (12.0-16.0) g/dL Hct 33.5 L (36.0-46.0) % MCV 92.0 (80.0-98.0) fL MCH 31.9 (27.0-32.0) pg MCHC 34.6 (31.0-37.0) g/dL RDW Std Deviation 41.4 (28.0-62.0) fl RDW Coeff of Greg 12 (11.0-15.0) % Plt Count 186 (150-400) K/uL MPV 9.70 (7.40-12.00) fL Nucleated RBC % 0.0 /100WBC Nucleated RBCs # 0 K/uL Sodium 140 (136-146) mmol/L Potassium 3.7 (3.5-5.1) mmol/L Chloride 107 (98-110) mmol/L Carbon Dioxide 23 (21-31) mmol/L BUN 17 (6.0-23.0) mg/dL Creatinine 0.8 (0.6-1.5) mg/dL Est Cr Clr Drug Dosing 49.47 mL/min Estimated GFR (MDRD) > 60.0 ml/min Glucose 162 H (60-110) mg/dL POC Glucose (60-110) mg/dL Calcium 8.4 L (8.8-10.8) mg/dL Troponin I < 0.10 (0.0-0.29) NG/ML 08/02/17 08/02/17 Range/Units 06:47 09:40 WBC (4.0-11.0) K/uL RBC (4.30-5.90) M/uL Hgb (12.0-16.0) g/dL Hct (36.0-46.0) % MCV (80.0-98.0) fL MCH (27.0-32.0) pg MCHC (31.0-37.0) g/dL RDW Std Deviation (28.0-62.0) fl RDW Coeff of Greg (11.0-15.0) % Plt Count (150-400) K/uL MPV (7.40-12.00) fL Nucleated RBC % /100WBC Nucleated RBCs # K/uL Sodium (136-146) mmol/L Potassium (3.5-5.1) mmol/L Chloride (98-110) mmol/L Carbon Dioxide (21-31) mmol/L BUN (6.0-23.0) mg/dL Creatinine (0.6-1.5) mg/dL Est Cr Clr Drug Dosing mL/min Estimated GFR (MDRD) ml/min Glucose (60-110) mg/dL POC Glucose 142 H (60-110) mg/dL Calcium (8.8-10.8) mg/dL Troponin I < 0.10 (0.0-0.29) NG/ML Med Orders - Current: Current Medications Acetaminophen (Tylenol) 650 mg PO Q4H PRN PRN Reason: Pain (Mild 1-3)/fever Last Admin: 08/01/17 23:39 Dose: 650 mg Amoxicillin/Clavulanate Potassium (Augmentin 875 Mg/125 Mg) 1 tab PO Q12HR [facility] Last Admin: 08/02/17 09:01 Dose: 1 tab Aspirin (Halfprin) 81 mg PO DAILY [facility] Last Admin: 08/02/17 09:01 Dose: 81 mg Atorvastatin Calcium (Lipitor) 5 mg PO DAILY [facility] Last Admin: 08/02/17 09:01 Dose: 5 mg Carvedilol (Coreg) 6.25 mg PO BID [facility] Last Admin: 08/02/17 09:03 Dose: 6.25 mg Cetirizine HCl (Zyrtec) 10 mg PO DAILY [facility] Last Admin: 08/02/17 09:03 Dose: 10 mg Clopidogrel Bisulfate (Plavix) 75 mg PO DAILY [facility] Last Admin: 08/02/17 09:03 Dose: 75 mg Heparin Sodium (Porcine) (Heparin Sodium) 5,000 units SUBCUT Q8H [facility] Last Admin: 08/02/17 06:32 Dose: 5,000 units Hydrochlorothiazide (Hydrochlorothiazide) 25 mg PO DAILY [facility] Last Admin: 08/02/17 09:03 Dose: 25 mg Insulin Aspart (Novolog) 0 unit SUBCUT ACBREAKFASTANDBED [facility] PRN Reason: Protocol Last Admin: 08/02/17 08:10 Dose: Not Given Lisinopril (Prinivil) 20 mg PO DAILY [facility] Last Admin: 08/02/17 09:03 Dose: 20 mg Omeprazole (Omeprazole) 20 mg PO DAILY [facility] Ondansetron HCl (Zofran Odt) 4 mg PO Q4H PRN PRN Reason: nausea, able to take PO Discontinued Medications Amoxicillin/Clavulanate Potassium (Augmentin 875 Mg/125 Mg) 1 tab PO Q12HR [facility] Aspirin (Aspirin) 324 mg PO ONETIME ONE Stop: 08/01/17 21:14 Last Admin: 08/01/17 21:32 Dose: 324 mg Sodium Chloride (Normal Saline) 1,000 mls @ 100 mls/hr IV ASDIRECTED [facility] Last Admin: 08/01/17 21:34 Dose: 100 mls/hr Nitroglycerin (Nitrostat) 0.4 mg SL Q5M PRN PRN Reason: Chest Pain - Exam Quality Assessment: Reports: DVT Prophylaxis General: Reports: Alert, Oriented, Cooperative, No Acute Distress HEENT: Reports: Pupils Equal, Pupils Reactive, EOMI, Mucous Membr. Moist/[place] Neck: Reports: Supple, Trachea Midline, No JVD Lungs: Reports: Clear to Auscultation, Normal Respiratory Effort Cardiovascular: Reports: Regular Rate, Regular Rhythm, Murmurs GI/Abdominal Exam: Normal Bowel Sounds, Soft, Non-Tender, No Organomegaly, No Distention, No Abnormal Bruit, No Mass Back Exam: Reports: Normal Inspection Extremities: Normal Inspection, Non-Tender, No Pedal Edema, Normal Capillary Refill Skin: Reports: Warm, Dry, Intact Wound/Incisions: Reports: Healing Well Neurological: Reports: No New Focal Deficit Psy/Mental Status: Reports: Alert, Normal Affect, Normal Mood *Q Meaningful Use (DIS) - VTE *Q VTE Criteria *Q: - Stroke *Q Stroke Criteria *Q: - AMI *Q AMI Criteria *Q:
[2017-08-02 12:06] VITALS: BP 157/68
== END 2017-08-02 12:04 | disposition home or self-care (01) ==
LOC: MW.ED 21:10 → MW.MS 22:04
PROVIDERS: ADMIT Family Medicine; ATTEND Family Medicine
DX: R07.2 Precordial pain (principal); I25.2 Old myocardial infarction; E11.9 Type 2 diabetes mellitus without complications; I10 Essential (primary) hypertension; I25.10 Atherosclerotic heart disease of native coronary artery without angina pectoris; H66.91 Otitis media, unspecified, right ear; E78.00 Pure hypercholesterolemia, unspecified; K21.9 Gastro-esophageal reflux disease without esophagitis; E66.9 Obesity, unspecified; Z68.30 Body mass index [BMI] 30.0-30.9, adult; Z79.01 Long term (current) use of anticoagulants; Z79.82 Long term (current) use of aspirin; Z79.84 Long term (current) use of oral hypoglycemic drugs; Z79.899 Other long term (current) drug therapy; Z79.2 Long term (current) use of antibiotics; Z88.2 Allergy status to sulfonamides; Z88.5 Allergy status to narcotic agent; Z88.1 Allergy status to other antibiotic agents; Z91.041 Radiographic dye allergy status; Z88.8 Allergy status to other drugs, medicaments and biological substances; Z86.73 Personal history of transient ischemic attack (TIA), and cerebral infarction without residual deficits; Z87.891 Personal history of nicotine dependence; Z98.890 Other specified postprocedural states
CPT/HCPCS: 36415; 71010; 80048; 80053; 82962; 84484; 85025; 85027; 93005; 96360; 96361; 96372; 99285; A9270; G0378; J1644; J7040; 99283

== ENCOUNTER 2017-08-15 22:10 | Emergency (ER) | payer MEDICARE, OTHER ==
[2017-08-15] MEDS ORDERED: Sodium Chloride 0.9% 1,000 ML IV ONE (22:43)
[2017-08-15] MEDS ORDERED: Ondansetron 4 MG/2 ML SDV IVPUSH ONE (22:43)
--- NOTE | 2017-08-15 22:45 | EDM.PDOC ---
ED HPI GENERAL MEDICAL PROBLEM - General Chief Complaint: General Stated Complaint: HIGH BLOOD PRESSURE Time Seen by Provider: 08/15/17 22:45 Source of Information: Reports: Patient - History of Present Illness INITIAL COMMENTS - FREE TEXT/NARRATIVE: HISTORY AND PHYSICAL: History of present illness: [Patient presents with a complaint of high blood pressure she states she has had blood pressure in 180ss should follow-up with Dr. Liu in [place] with no change to her medication], however we have not had these readings here 160 over 80s throughout and extended stay at fluid rehydration No fever or constipation chest pain shortness breath headache dizziness palpitations no diaphoresis She's had some nausea she tried to make herself vomit and couldn't she's had several loose stools consistent with the local gastroenteritis but that's going around no abdominal pain Review of systems: As per history of present illness and below otherwise all systems reviewed and negative. Past medical history: As per history of present illness and as reviewed below otherwise noncontributory. Surgical history: As per history of present illness and as reviewed below otherwise noncontributory. Social history: No reported history of drug or alcohol abuse. Family history: As per history of present illness and as reviewed below otherwise noncontributory. Physical exam: HEENT: Atraumatic, normocephalic, pupils reactive, negative for conjunctival pallor or scleral icterus, mucous membranes moist, throat clear, neck supple, nontender, trachea midline. Lungs: Clear to auscultation, breath sounds equal bilaterally, chest nontender. Heart: S1S2, regular, negative for clicks, rubs, or JVD. Abdomen: Soft, nondistended, nontender. Negative for masses or hepatosplenomegaly. Negative for costovertebral tenderness. Pelvis: Stable nontender. Genitourinary: Deferred. Rectal: Deferred. Extremities: Atraumatic, negative for cords or calf pain. Neurovascular unremarkable. Neuro: Awake, alert, oriented. Cranial nerves II through XII unremarkable. Cerebellum unremarkable. Motor and sensory unremarkable throughout. Exam nonfocal. Diagnostics: [Lab as below EKG Chest 1 view ] Therapeutics: [1 L normal saline bolus Zofran 8 mg IV] Zofran 8 mg ODT every 8 when necessary #30 no refill Patient offered observation admission but declines/refuses Impression: [Nausea diarrhea Viral syndrome] Gastroenteritis Definitive disposition and diagnosis as appropriate pending reevaluation and review of above. - Related Data Allergies Allergy/AdvReac Type Severity Reaction Status Date / Time codeine Allergy Hives Verified 08/15/17 22:40 Iodine and Iodide Containing Allergy Airway Verified 08/15/17 22:40 Produc Tightness red dye Allergy Airway Verified 08/15/17 22:40 Tightness sulfamethoxazole Allergy Hives Verified 08/15/17 22:40 [From Bactrim] trimethoprim [From Bactrim] Allergy Hives Verified 08/15/17 22:40 ornade Spansules Allergy Hives Uncoded 08/15/17 22:40 Home Meds: Home Meds Clopidogrel [Plavix] 75 mg PO DAILY 04/23/15 [History] Hydrochlorothiazide 25 mg PO DAILY 04/23/15 [History] Lisinopril [Prinivil] 20 mg PO DAILY 04/23/15 [History] Omeprazole 20 mg PO DAILY 04/23/15 [History] Aspirin [Adult Low Dose Aspirin EC] 1 tab PO DAILY 12/03/15 [History] Carvedilol 6.25 mg PO BID 12/03/15 [History] Cetirizine [ZyrTEC] 10 mg PO DAILY 12/03/15 [History] Glimepiride [Amaryl] 4 mg PO DAILY 12/03/15 [History] Amoxicillin/Potassium Clav [Amox-Clav 875-125 mg Tablet] 1 tab PO Q12HR [History] atorvaSTATin [Lipitor] 5 mg PO DAILY 08/01/17 [History] metFORMIN [Glucophage] 250 mg PO BEDTIME 08/01/17 [History] Past Medical History HEENT History: Reports: Other (See Below) Other HEENT History: wears glasses, has upper denture Cardiovascular History: Reports: High Cholesterol, Hypertension, [place], Other (See Below) Other Cardiovascular History: 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, TIA in 2002- no residual Respiratory History: Reports: None Gastrointestinal History: Reports: GERD Genitourinary History: Reports: None [employer]ER History: Reports: Musculoskeletal History: Reports: None Neurological History: Reports: TIA Other Neuro History: TIA- 2002, no residual Psychiatric History: Reports: None Endocrine/Metabolic History: Reports: Diabetes, Type II, Obesity/BMI 30+ Hematologic History: Reports: Anticoagulation Therapy Other Hematologic History: takes plavix Immunologic History: Reports: None Oncologic (Cancer) History: Reports: None Dermatologic History: Reports: None - Past Surgical History Head Surgeries/Procedures: Reports: None HEENT Surgical History: Reports: None Cardiovascular Surgical History: Reports: None Respiratory Surgical History: Reports: None GI Surgical History: Reports: Cholecystectomy Female Surgical History: Reports: Hysterectomy, Other (See Below) Other Female Surgeries/Procedures: Anterior repair Endocrine Surgical History: Reports: None Neurological Surgical History: Reports: None Musculoskeletal Surgical History: Reports: None Oncologic Surgical History: Reports: None Dermatological Surgical History: Reports: None Social & Family History - Family History Family Medical History: Noncontributory - Tobacco Use Smoking Status *Q: Never Smoker Used Tobacco, but Quit: No Second Hand Smoke Exposure: No - Caffeine Use Caffeine Use: Reports: Tea - Recreational Drug Use Recreational Drug Use: No Drug Use in Last 12 Months: No ED ROS GENERAL - Review of Systems Review Of Systems: ROS reveals no pertinent complaints other than HPI. ED EXAM, GENERAL - Physical Exam Exam: See Below Course - Vital Signs Last Recorded V/S: Last Vital Signs Temp 97.5 F 08/15/17 22:10 Pulse 79 08/15/17 22:10 Resp 18 08/15/17 22:10 BP 161/65 H 08/15/17 22:10 Pulse Ox 94 L 08/15/17 22:10 - Orders/Labs/Meds Orders: Active Orders 24 hr Category Date Time Status EKG Documentation Completion [RC] STAT Care 08/15/17 22:44 Active Chest 1V Frontal [CR] Stat Exams 08/15/17 22:44 Taken UA W/MICROSCOPIC [URIN] Stat Lab 08/15/17 22:44 Uncollected Labs: Laboratory Tests 08/15/17 08/15/17 Range/Units 23:08 23:08 WBC 11.38 H (4.0-11.0) K/uL RBC 4.11 L (4.30-5.90) M/uL Hgb 13.1 (12.0-16.0) g/dL Hct 37.5 (36.0-46.0) % MCV 91.2 (80.0-98.0) fL MCH 31.9 (27.0-32.0) pg MCHC 34.9 (31.0-37.0) g/dL RDW Std Deviation 41.2 (28.0-62.0) fl RDW Coeff of Greg 12 (11.0-15.0) % Plt Count 232 (150-400) K/uL MPV 9.50 (7.40-12.00) fL Neut % (Auto) 63.5 (48.0-80.0) % Lymph % (Auto) 27.1 (16.0-40.0) % Garrard % (Auto) 7.4 (0.0-15.0) % Eos % (Auto) 1.6 (0.0-7.0) % Baso % (Auto) 0.4 (0.0-1.5) % Neut # (Auto) 7.2 H (1.4-5.7) K/uL Lymph # (Auto) 3.1 H (0.6-2.4) K/uL Garrard # (Auto) 0.8 (0.0-0.8) K/uL Eos # (Auto) 0.2 (0.0-0.7) K/uL Baso # (Auto) 0.1 (0.0-0.1) K/uL Nucleated RBC % 0.0 /100WBC Nucleated RBCs # 0 K/uL Sodium 139 (136-146) mmol/L Potassium 3.6 (3.5-5.1) mmol/L Chloride 104 (98-110) mmol/L Carbon Dioxide 23 (21-31) mmol/L BUN 27 H (6.0-23.0) mg/dL Creatinine 0.9 (0.6-1.5) mg/dL Est Cr Clr Drug Dosing TNP Estimated GFR (MDRD) > 60.0 ml/min Glucose 105 (60-110) mg/dL Calcium 9.6 (8.8-10.8) mg/dL Total Bilirubin 0.5 (0.1-1.5) mg/dL AST 17 (5-40) IU/L ALT 14 (8-54) IU/L Alkaline Phosphatase 67 (40-150) Troponin I < 0.10 (0.0-0.29) NG/ML Total Protein 7.9 (6.0-8.0) g/dL Albumin 4.1 (3.4-4.8) g/dL Globulin 3.8 H (2.0-3.5) g/dL Albumin/Globulin Ratio 1.1 L (1.3-2.8) Amylase 49 (10-90) U/L Lipase 97 H (7-80) U/L Meds: Medications Discontinued Medications Generic Name Dose Route Start Last Admin Trade Name Nickolasq PRN Reason Stop Dose Admin Sodium Chloride 1,000 mls @ 999 mls/hr 08/15/17 22:43 08/15/17 23:04 Normal Saline IV 08/15/17 23:43 999 mls/hr STAT ONE Administration Ondansetron HCl 8 mg 08/15/17 22:43 08/15/17 23:05 Zofran IVPUSH 08/15/17 22:44 8 mg ONETIME ONE Administration Departure - Departure Time of Disposition: 00:17 Disposition: Home, Self-Care 01 Condition: Good Clinical Impression: Gastroenteritis - Discharge Information Referrals: Leslee Liu MD [Primary Care Provider] - Forms: ED Department Discharge Additional Instructions: The following information is given to patients seen in the emergency department who are being discharged to home. This information is to outline your options for follow-up care. We provide all patients seen in our emergency department with a follow-up referral. The need for follow-up, as well as the timing and circumstances, are variable depending upon the specifics of your emergency department visit. If you don't have a primary care physician on staff, we will provide you with a referral. We always advise you to contact your personal physician following an emergency department visit to inform them of the circumstance of the visit and for follow-up with them and/or the need for any referrals to a consulting specialist. The emergency department will also refer you to a specialist when appropriate. This referral assures that you have the opportunity for follow-up care with a specialist. All of these measure are taken in an effort to provide you with optimal care, which includes your follow-up. Under all circumstances we always encourage you to contact your private physician who remains a resource for coordinating your care. When calling for follow-up care, please make the office aware that this follow-up is from your recent emergency room visit. If for any reason you are refused follow-up, please contact the [facility] emergency department at and asked to speak to the emergency department charge nurse. - My Orders Last 24 Hours: My Active Orders 08/15/17 22:44 EKG Documentation Completion [RC] STAT Chest 1V Frontal [CR] Stat UA W/MICROSCOPIC [URIN] Stat - Assessment/Plan Last 24 Hours: My Active Orders 08/15/17 22:44 EKG Documentation Completion [RC] STAT Chest 1V Frontal [CR] Stat UA W/MICROSCOPIC [URIN] Stat
[2017-08-15 23:33] LABS: CHLORIDE,CL 104 mmol/L (98-110); SODIUM,NA 139 mmol/L (136-146)
[2017-08-16 02:36] VITALS: BP 145/55
--- NOTE | 2017-08-16 09:10 | CR ---
EXAM DATE: 08/15/17 PATIENT'S AGE: 76 Patient: DANNY SWEENEY Facility: [place], [place] Site . Site : 1940 Study: XRay Chest [id number]/[id number] 11:10:16 PM Ordering Physician: Morro Em Final Report: Indication: Hypertension. Comparison: Portable chest 08/01/2017. Findings: Lung volumes remain low. The cardiac and mediastinal silhouettes are stable in appearance. The pulmonary vascular is normal. The lungs are free of infiltrate. Impression: Stable chest. No active cardiopulmonary disease on portable chest. Dictated by Neha Simpson MD @ Aug 15 2017 11:13PM (Electronic Signature) Report Signed by Proxy. SHANICE
== END 2017-08-16 00:27 | disposition home or self-care (01) ==
LOC: MW.ED 22:10
DX: K52.9 Noninfective gastroenteritis and colitis, unspecified (principal); B34.9 Viral infection, unspecified; I10 Essential (primary) hypertension; E78.00 Pure hypercholesterolemia, unspecified; K21.9 Gastro-esophageal reflux disease without esophagitis; E11.9 Type 2 diabetes mellitus without complications; Z79.01 Long term (current) use of anticoagulants; Z79.02 Long term (current) use of antithrombotics/antiplatelets; Z79.82 Long term (current) use of aspirin; Z79.84 Long term (current) use of oral hypoglycemic drugs; Z79.899 Other long term (current) drug therapy; Z88.1 Allergy status to other antibiotic agents; Z88.2 Allergy status to sulfonamides; Z88.8 Allergy status to other drugs, medicaments and biological substances; Z88.5 Allergy status to narcotic agent
CPT/HCPCS: 36415; 71045; 80053; 82150; 83690; 84484; 85025; 87804; 93005; 96361; 96374; 99284; J2405; J7040; 99283

== ENCOUNTER 2017-08-22 19:23 | Emergency (ER) | payer MEDICARE, OTHER ==
--- NOTE | 2017-08-22 19:39 | EDM.PDOC ---
ED HPI GENERAL MEDICAL PROBLEM - General Chief Complaint: General Stated Complaint: HBP Time Seen by Provider: 08/22/17 19:28 - History of Present Illness INITIAL COMMENTS - FREE TEXT/NARRATIVE: HISTORY AND PHYSICAL: History of present illness: The patient is a 76-year-old female who follows with Dr. Liu at [facility] and presents with elevated blood pressure, 180s over 90s, and a vague diffuse headache for which she has not taken any medications. The patient was just seen here on August 15, one week ago, for the same presentation. She was evaluated with EKG and labs and was advised to follow-up with her provider in the clinic to adjust her medications. The patient says that she did that but Dr. Liu did not adjust her blood pressure medications. He is here again with same with some concerns. She has no chest pain shortness of breath abdominal pain nausea or vomiting no fevers no chills no cough and no urinary complaints. Patient is here in the ED again because she's feels particularly frustrated with her clinic provider and lack of adjustment of medications Review of systems: As per history of present illness and below otherwise all systems reviewed and negative. Past medical history: As per history of present illness and as reviewed below otherwise noncontributory. Surgical history: As per history of present illness and as reviewed below otherwise noncontributory. Social history: No reported history of drug or alcohol abuse. Family history: As per history of present illness and as reviewed below otherwise noncontributory. Physical exam: Gen.: Well-developed well-nourished female who is nontoxic and speaking clearly and easily in the ED. Vital signs have been reviewed by me HEENT: Atraumatic, normocephalic, negative for conjunctival pallor or scleral icterus, mucous membranes moist, throat clear, neck supple, nontender, trachea midline. Lungs: Clear to auscultation, breath sounds equal bilaterally, chest nontender. Heart: S1S2, regular rate and rhythm no overt murmurs Abdomen: Soft, nondistended, nontender. NABS Pelvis: Stable nontender. Genitourinary: Deferred. Rectal: Deferred. Extremities: Atraumatic, negative for cords or calf pain. Neurovascular unremarkable. No pedal edema Neuro: Awake, alert, oriented. Cranial nerves II through XII unremarkable. Cerebellum unremarkable. Motor and sensory unremarkable throughout. Exam nonfocal. Diagnostics: The patient's labs from August 15 were reviewed by me. I offered the patient repeat labs but she defers at this time Therapeutics: I offered the patient Tylenol for headache and she says that she has that at home 194--I discussed the case with our hospitalist who feels that I can give for next her dose of her lisinopril here but he agrees with me that adjustment of her medications long-term should be done by her provider in the clinic. I will give her information to follow-up in our clinic if she feels that she is not getting the answers that she needs at [facility]. When I just reevaluated her to discussed this conversation her repeat blood pressure is 162/65 and I told her that I do not think that taking an extra dose of lisinopril at this point with that blood pressure would be advisable. She is comfortable with this and will go to see Dr. Liu tomorrow and if she is not getting answers that she needs she will follow-up in our clinic. That she will take Tylenol when she gets at home and she does not want a dose here Impression: Evaluation for hypertension stable Definitive disposition and diagnosis as appropriate pending reevaluation and review of above. headache Pain Score (Numeric/FACES): 5 - Related Data Allergies Allergy/AdvReac Type Severity Reaction Status Date / Time codeine Allergy Hives Verified 08/22/17 19:32 Iodine and Iodide Containing Allergy Airway Verified 08/22/17 19:32 Produc Tightness red dye Allergy Airway Verified 08/22/17 19:32 Tightness sulfamethoxazole Allergy Hives Verified 08/22/17 19:32 [From Bactrim] trimethoprim [From Bactrim] Allergy Hives Verified 08/22/17 19:32 ornade Spansules Allergy Hives Uncoded 08/22/17 19:32 Home Meds: Home Meds Clopidogrel [Plavix] 75 mg PO DAILY 04/23/15 [History] Hydrochlorothiazide 25 mg PO DAILY 04/23/15 [History] Lisinopril [Prinivil] 5 mg PO DAILY 04/23/15 [History] Omeprazole 20 mg PO DAILY 04/23/15 [History] Aspirin [Adult Low Dose Aspirin EC] 1 tab PO DAILY 12/03/15 [History] Carvedilol 6.25 mg PO BID 12/03/15 [History] Cetirizine [ZyrTEC] 10 mg PO DAILY 12/03/15 [History] Glimepiride [Amaryl] 4 mg PO DAILY 12/03/15 [History] Amoxicillin/Potassium Clav [Amox-Clav 875-125 mg Tablet] 1 tab PO Q12HR [History] atorvaSTATin [Lipitor] 5 mg PO DAILY 08/01/17 [History] metFORMIN [Glucophage] 250 mg PO BEDTIME 08/01/17 [History] Past Medical History - Past Health History Medical/Surgical History: Denies Medical/Surgical History HEENT History: Reports: Other (See Below) Other HEENT History: wears glasses, has upper denture Cardiovascular History: Reports: High Cholesterol, Hypertension, [place], Other (See Below) Other Cardiovascular History: CA in 2014- no stents, TIA in 2002- no residual Respiratory History: Reports: None Gastrointestinal History: Reports: GERD Genitourinary History: Reports: None [employer]ATOR History: Reports: Musculoskeletal History: Reports: None Neurological History: Reports: TIA Other Neuro History: TIA- 2002, no residual Psychiatric History: Reports: None Endocrine/Metabolic History: Reports: Diabetes, Type II, Obesity/BMI 30+ Hematologic History: Reports: Anticoagulation Therapy Other Hematologic History: takes plavix Immunologic History: Reports: None Oncologic (Cancer) History: Reports: None Dermatologic History: Reports: None - Past Surgical History Head Surgeries/Procedures: Reports: None HEENT Surgical History: Reports: None Cardiovascular Surgical History: Reports: None Respiratory Surgical History: Reports: None GI Surgical History: Reports: Cholecystectomy Female Surgical History: Reports: Hysterectomy, Other (See Below) Other Female Surgeries/Procedures: Anterior repair Endocrine Surgical History: Reports: None Neurological Surgical History: Reports: None Musculoskeletal Surgical History: Reports: None Oncologic Surgical History: Reports: None Dermatological Surgical History: Reports: None Social & Family History - Family History Family Medical History: Noncontributory - Tobacco Use Smoking Status *Q: Never Smoker Used Tobacco, but Quit: No Second Hand Smoke Exposure: No - Caffeine Use Caffeine Use: Reports: Tea - Recreational Drug Use Recreational Drug Use: No Drug Use in Last 12 Months: No ED ROS GENERAL - Review of Systems Review Of Systems: ROS reveals no pertinent complaints other than HPI. ED EXAM, GENERAL - Physical Exam Exam: See Below (See dictation) Course - Vital Signs Last Recorded V/S: Last Vital Signs Temp 36.5 C 08/22/17 19:34 Pulse 80 08/22/17 19:34 Resp 18 08/22/17 19:34 BP 180/76 H 08/22/17 19:34 Pulse Ox 98 08/22/17 19:34 Departure - Departure Time of Disposition: 19:44 Disposition: Home, Self-Care 01 Condition: Good Clinical Impression: Elevated blood pressure reading - Discharge Information Referrals: Leslee Liu MD [Primary Care Provider] - Forms: ED Department Discharge Additional Instructions: The following information is given to patients seen in the emergency department who are being discharged to home. This information is to outline your options for follow-up care. We provide all patients seen in our emergency department with a follow-up referral. The need for follow-up, as well as the timing and circumstances, are variable depending upon the specifics of your emergency department visit. If you don't have a primary care physician on staff, we will provide you with a referral. We always advise you to contact your personal physician following an emergency department visit to inform them of the circumstance of the visit and for follow-up with them and/or the need for any referrals to a consulting specialist. The emergency department will also refer you to a specialist when appropriate. This referral assures that you have the opportunity for followup care with a specialist. All of these measure are taken in an effort to provide you with optimal care, which includes your followup. Under all circumstances we always encourage you to contact your private physician who remains a resource for coordinating your care. When calling for followup care, please make the office aware that this follow-up is from your recent emergency room visit. If for any reason you are refused follow-up, please contact the [facility] emergency department at and ask to speak to the emergency department charge nurse. [facility]- [facility] Medicine and Family [address] [id number] Please continue your normal home medications and avoid sodium rich foods and excess sodium on your food. Please call Dr. Liu tomorrow to be seen in the clinic and have your blood pressure reevaluated for medication changes and if you would like please call our clinic for follow-up appointment with them. Return to ER as needed and as discussed
[2017-08-22 19:54] VITALS: BP 133/63
== END 2017-08-22 19:50 | disposition home or self-care (01) ==
LOC: MW.ED 19:23
DX: I10 Essential (primary) hypertension (principal); E78.00 Pure hypercholesterolemia, unspecified; E11.9 Type 2 diabetes mellitus without complications; Z88.8 Allergy status to other drugs, medicaments and biological substances; Z88.2 Allergy status to sulfonamides; Z88.1 Allergy status to other antibiotic agents; Z79.899 Other long term (current) drug therapy; Z79.82 Long term (current) use of aspirin; Z79.84 Long term (current) use of oral hypoglycemic drugs
CPT/HCPCS: 99283

== ENCOUNTER 2019-01-18 19:28 | Emergency (ER) | payer MEDICARE, OTHER ==
--- NOTE | 2019-01-18 20:10 | EDM.PDOC ---
ED HPI GENERAL MEDICAL PROBLEM - General Chief Complaint: Skin Complaint Stated Complaint: RASH UNDERNEATH BREASTS Time Seen by Provider: 01/18/19 19:56 - History of Present Illness INITIAL COMMENTS - FREE TEXT/NARRATIVE: HISTORY AND PHYSICAL: History of present illness: The patient is a 78-year-old female who presents with 2 days of a rash underneath both breasts which is red and painful. She denies that she has ever had this before. She has no rashes elsewhere on her body such as in her groin eyes or armpits. She's had no systemic complaints of fever chills nausea vomiting chest pain or shortness of breath. The patient says she normally does not wear a bra and only wears a bra when she goes out of the house. The patient has not tried anything for this problem Review of systems: As per history of present illness and below otherwise all systems reviewed and negative. Past medical history: As per history of present illness and as reviewed below otherwise noncontributory. Surgical history: As per history of present illness and as reviewed below otherwise noncontributory. Social history: No reported history of drug or alcohol abuse. Family history: As per history of present illness and as reviewed below otherwise noncontributory. Physical exam: General: Well-developed well-nourished female who is nontoxic and vital signs are noted by me HEENT: Atraumatic, normocephalic, negative for conjunctival pallor or scleral icterus, mucous membranes moist, throat clear, neck supple, nontender, trachea midline. Lungs: Clear to auscultation, breath sounds equal bilaterally, chest nontender. Heart: S1S2, regular rate and rhythm no overt murmurs Abdomen: Soft, nondistended, nontender. NABS Pelvis: Deferred Genitourinary: Deferred. Rectal: Deferred. Extremities: Atraumatic, negative for cords or calf pain. Neurovascular unremarkable. Neuro: Awake, alert, oriented. Cranial nerves II through XII unremarkable. Cerebellum unremarkable. Motor and sensory unremarkable throughout. Exam nonfocal. Skin: Normal turgor and there are no overt rashes or lesions with the exception of the inframammary skin areas where there is an erythematous well demarcated papular rash seen without any vesicles or drainage. Diagnostics: [] Therapeutics: [] Impression: Candidal skin rash Definitive disposition and diagnosis as appropriate pending reevaluation and review of above. Bilateral Breast Pain Score (Numeric/FACES): 9 - Related Data Allergies Allergy/AdvReac Type Severity Reaction Status Date / Time codeine Allergy Hives Verified 08/22/17 19:32 Iodine and Iodide Containing Allergy Airway Verified 08/22/17 19:32 Produc Tightness red dye Allergy Airway Verified 08/22/17 19:32 Tightness sulfamethoxazole Allergy Hives Verified 08/22/17 19:32 [From Bactrim] trimethoprim [From Bactrim] Allergy Hives Verified 08/22/17 19:32 ornade Spansules Allergy Hives Uncoded 08/22/17 19:32 Home Meds: Home Meds Clopidogrel [Plavix] 75 mg PO DAILY 04/23/15 [History] Hydrochlorothiazide 25 mg PO DAILY 04/23/15 [History] Lisinopril [Prinivil] 5 mg PO DAILY 04/23/15 [History] Omeprazole 20 mg PO DAILY 04/23/15 [History] Aspirin [Adult Low Dose Aspirin EC] 1 tab PO DAILY 12/03/15 [History] Carvedilol 6.25 mg PO BID 12/03/15 [History] Cetirizine [ZyrTEC] 10 mg PO DAILY 12/03/15 [History] Glimepiride [Amaryl] 4 mg PO DAILY 12/03/15 [History] Amoxicillin/Potassium Clav [Amox-Clav 875-125 mg Tablet] 1 tab PO Q12HR [History] atorvaSTATin [Lipitor] 5 mg PO DAILY 08/01/17 [History] metFORMIN [Glucophage] 250 mg PO BEDTIME 08/01/17 [History] Past Medical History - Past Health History Medical/Surgical History: Denies Medical/Surgical History HEENT History: Reports: Other (See Below) Other HEENT History: wears glasses, has upper denture Cardiovascular History: Reports: High Cholesterol, Hypertension, PA, Other (See Below) Other Cardiovascular History: PA in 2014- no stents, TIA in 2002- no residual Respiratory History: Reports: None Gastrointestinal History: Reports: GERD Genitourinary History: Reports: None 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: Musculoskeletal History: Reports: None Neurological History: Reports: TIA Other Neuro History: TIA- 2002, no residual Psychiatric History: Reports: None Endocrine/Metabolic History: Reports: Diabetes, Type II, Obesity/BMI 30+ Hematologic History: Reports: Anticoagulation Therapy Other Hematologic History: takes plavix Immunologic History: Reports: None Oncologic (Cancer) History: Reports: None Dermatologic History: Reports: None - Infectious Disease History Infectious Disease History: Reports: None - Past Surgical History Head Surgeries/Procedures: Reports: None HEENT Surgical History: Reports: None Cardiovascular Surgical History: Reports: None Respiratory Surgical History: Reports: None GI Surgical History: Reports: Cholecystectomy Female Surgical History: Reports: Hysterectomy, Other (See Below) Other Female Surgeries/Procedures: Anterior repair Endocrine Surgical History: Reports: None Neurological Surgical History: Reports: None Musculoskeletal Surgical History: Reports: None Oncologic Surgical History: Reports: None Dermatological Surgical History: Reports: None Social & Family History - Family History Family Medical History: Noncontributory - Caffeine Use Caffeine Use: Reports: Tea ED ROS GENERAL - Review of Systems Review Of Systems: ROS reveals no pertinent complaints other than HPI. ED EXAM, SKIN/RASH Exam: See Below (See dictation) Course - Vital Signs Last Recorded V/S: Last Vital Signs Temp 35.9 C 01/18/19 19:43 Pulse 59 L 01/18/19 19:43 Resp 14 01/18/19 19:43 BP 179/72 H 01/18/19 19:43 Pulse Ox 92 L 01/18/19 19:43 Departure - Departure Time of Disposition: 20:10 Disposition: Home, Self-Care 01 Condition: Good Clinical Impression: Skin rash - Discharge Information Referrals: Leslee Liu MD [Primary Care Provider] - Additional Instructions: The following information is given to patients seen in the emergency department who are being discharged to home. This information is to outline your options for follow-up care. We provide all patients seen in our emergency department with a follow-up referral. The need for follow-up, as well as the timing and circumstances, are variable depending upon the specifics of your emergency department visit. If you don't have a primary care physician on staff, we will provide you with a referral. We always advise you to contact your personal physician following an emergency department visit to inform them of the circumstance of the visit and for follow-up with them and/or the need for any referrals to a consulting specialist. The emergency department will also refer you to a specialist when appropriate. This referral assures that you have the opportunity for followup care with a specialist. All of these measure are taken in an effort to provide you with optimal care, which includes your followup. Under all circumstances we always encourage you to contact your private physician who remains a resource for coordinating your care. When calling for followup care, please make the office aware that this follow-up is from your recent emergency room visit. If for any reason you are refused follow-up, please contact the [facility] emergency department at and ask to speak to the emergency department charge nurse. [facility] Primary care- Internal Medicine and Family [address] [id number] Please follow-up with your provider at [facility] or one of hours for reevaluation and further care and return to ER as needed and as discussed. Please fill your prescription for nystatin powder and apply to the areas as directed. Try to keep the areas open to air as much as possible
[2019-01-18 20:24] VITALS: BP 141/87
== END 2019-01-18 20:23 | disposition home or self-care (01) ==
LOC: MW.ED 19:28
DX: B37.2 Candidiasis of skin and nail (principal); I10 Essential (primary) hypertension; I25.2 Old myocardial infarction; Z86.73 Personal history of transient ischemic attack (TIA), and cerebral infarction without residual deficits; E11.9 Type 2 diabetes mellitus without complications; E66.9 Obesity, unspecified; K21.9 Gastro-esophageal reflux disease without esophagitis; Z88.2 Allergy status to sulfonamides; Z91.018 Allergy to other foods; Z88.5 Allergy status to narcotic agent; Z88.8 Allergy status to other drugs, medicaments and biological substances; Z79.899 Other long term (current) drug therapy; Z79.82 Long term (current) use of aspirin; Z79.84 Long term (current) use of oral hypoglycemic drugs; Z90.49 Acquired absence of other specified parts of digestive tract; Z90.710 Acquired absence of both cervix and uterus
CPT/HCPCS: 99282; 99283

== ENCOUNTER 2019-02-23 07:54 | Emergency (ER) | payer MEDICARE, OTHER ==
--- NOTE | 2019-02-23 08:30 | EDM.PDOC ---
ED HPI GENERAL MEDICAL PROBLEM - General Chief Complaint: Cardiovascular Problem Stated Complaint: HIGH BP AND WEAKNESS Time Seen by Provider: 02/23/19 08:09 Source of Information: Reports: Patient History Limitations: Reports: No Limitations - History of Present Illness INITIAL COMMENTS - FREE TEXT/NARRATIVE: History of present illness: []Patient has been on doxycycline for 6 days and had one episode of vomiting and one episode of diarrhea yesterday. Today she feels weak all over., She denies any chest pain, Shortness of breath, fevers, chills or other pain. Review of systems: As per history of present illness and below otherwise all systems reviewed and negative. Past medical history: As per history of present illness and as reviewed below otherwise noncontributory. Surgical history: As per history of present illness and as reviewed below otherwise noncontributory. Social history: No reported history of drug or alcohol abuse. Family history: As per history of present illness and as reviewed below otherwise noncontributory. Physical exam: General: Well developed, well nourished in NAD HEENT: Atraumatic, normocephalic, pupils reactive, negative for conjunctival pallor or scleral icterus, mucous membranes moist, throat clear, neck supple, nontender, trachea midline. Lungs: Basilar crackles laterally to auscultation, no chest wall retractions chest nontender. Heart: S1S2, regular, negative for clicks, rubs, or JVD. No peripheral edema Abdomen: NABS, Soft, nondistended, nontender. Negative for masses or hepatosplenomegaly. Negative for costovertebral tenderness. Pelvis: Stable nontender. Genitourinary: Deferred. Rectal: Deferred. Extremities: Atraumatic, negative for cords or calf pain. Neurovascular unremarkable. Neuro: Awake, alert, oriented. Cranial nerves II through XII unremarkable. Cerebellum unremarkable. Motor and sensory unremarkable throughout. Exam nonfocal. Skin:warm and dry Diagnostics: CBC, chemistry, UA, chest x-ray Therapeutics: Declined IV fluid ED Course: Stable Impression: Generalized weakness, mild hyponatremia Prescriptions: None Plan: Take meds as directed, follow up with your primary care physician, return to ER if symptoms worsen or change. Definitive disposition and diagnosis as appropriate pending reevaluation and review of above. - Related Data Allergies Allergy/AdvReac Type Severity Reaction Status Date / Time codeine Allergy Hives Verified 02/23/19 08:10 Iodine and Iodide Containing Allergy Airway Verified 02/23/19 08:10 Produc Tightness red dye Allergy Airway Verified 02/23/19 08:10 Tightness sulfamethoxazole Allergy Hives Verified 02/23/19 08:10 [From Bactrim] trimethoprim [From Bactrim] Allergy Hives Verified 02/23/19 08:10 ornade Spansules Allergy Hives Uncoded 01/18/19 20:03 Home Meds: Home Meds Hydrochlorothiazide 25 mg PO DAILY 04/23/15 [History] Lisinopril [Prinivil] 20 mg PO DAILY 04/23/15 [History] Aspirin [Adult Low Dose Aspirin EC] 1 tab PO DAILY 12/03/15 [History] Carvedilol 6.25 mg PO BID 12/03/15 [History] Cetirizine [ZyrTEC] 10 mg PO DAILY 12/03/15 [History] Glimepiride [Amaryl] 4 mg PO DAILY 12/03/15 [History] atorvaSTATin [Lipitor] 5 mg PO DAILY 08/01/17 [History] metFORMIN [Glucophage] 250 mg PO BEDTIME 08/01/17 [History] SitaGLIPtin [Januvia] 50 mg PO DAILY 01/18/19 [History] Past Medical History - Past Health History Medical/Surgical History: Denies Medical/Surgical History HEENT History: Reports: Other (See Below) Other HEENT History: wears glasses, has upper denture Cardiovascular History: Reports: High Cholesterol, Hypertension, ID, Other (See Below) Other Cardiovascular History: ID in 2014- no stents, TIA in 2002- no residual Respiratory History: Reports: None Gastrointestinal History: Reports: GERD Genitourinary History: Reports: None 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: Musculoskeletal History: Reports: None Neurological History: Reports: TIA Other Neuro History: TIA- 2002, no residual Psychiatric History: Reports: None Endocrine/Metabolic History: Reports: Diabetes, Type II, Obesity/BMI 30+ Hematologic History: Reports: Anticoagulation Therapy Other Hematologic History: takes plavix Immunologic History: Reports: None Oncologic (Cancer) History: Reports: None Dermatologic History: Reports: None - Infectious Disease History Infectious Disease History: Reports: None - Past Surgical History Head Surgeries/Procedures: Reports: None HEENT Surgical History: Reports: None Cardiovascular Surgical History: Reports: None Respiratory Surgical History: Reports: None GI Surgical History: Reports: Cholecystectomy Female Surgical History: Reports: Hysterectomy, Other (See Below) Other Female Surgeries/Procedures: Anterior repair Endocrine Surgical History: Reports: None Neurological Surgical History: Reports: None Musculoskeletal Surgical History: Reports: None Oncologic Surgical History: Reports: None Dermatological Surgical History: Reports: None Social & Family History - Family History Family Medical History: Noncontributory - Tobacco Use Smoking Status *Q: Never Smoker - Caffeine Use Caffeine Use: Reports: Coffee - Recreational Drug Use Recreational Drug Use: No ED ROS GENERAL - Review of Systems Review Of Systems: See Below ED EXAM, GENERAL - Physical Exam Exam: See Below Course - Vital Signs Last Recorded V/S: Last Vital Signs Temp 97.1 F 02/23/19 08:05 Pulse 78 02/23/19 08:05 Resp 18 02/23/19 08:05 BP 148/67 H 02/23/19 08:05 Pulse Ox 94 L 02/23/19 08:05 - Orders/Labs/Meds Orders: Active Orders 24 hr Category Date Time Status Blood Glucose Check, Bedside [RC] ONETIME Care 02/23/19 08:28 Active EKG 12 Lead [EKG Documentation Completion] [RC] STAT Care 02/23/19 08:06 Active Labs: Laboratory Tests 02/23/19 02/23/19 02/23/19 Range/Units 08:55 08:55 10:00 WBC 7.04 (4.0-11.0) K/uL RBC 3.80 L (4.30-5.90) M/uL Hgb 12.0 (12.0-16.0) g/dL Hct 34.8 L (36.0-46.0) % MCV 91.6 (80.0-98.0) fL MCH 31.6 (27.0-32.0) pg MCHC 34.5 (31.0-37.0) g/dL RDW Std Deviation 41.3 (28.0-62.0) fl RDW Coeff of Greg 12 (11.0-15.0) % Plt Count 219 (150-400) K/uL MPV 9.20 (7.40-12.00) fL Neut % (Auto) 63.4 (48.0-80.0) % Lymph % (Auto) 27.1 (16.0-40.0) % Logan % (Auto) 8.8 (0.0-15.0) % Eos % (Auto) 0.4 (0.0-7.0) % Baso % (Auto) 0.3 (0.0-1.5) % Neut # (Auto) 4.5 (1.4-5.7) K/uL Lymph # (Auto) 1.9 (0.6-2.4) K/uL Logan # (Auto) 0.6 (0.0-0.8) K/uL Eos # (Auto) 0.0 (0.0-0.7) K/uL Baso # (Auto) 0.0 (0.0-0.1) K/uL Nucleated RBC % 0.0 /100WBC Nucleated RBCs # 0 K/uL Sodium 133 L (136-145) mmol/L Potassium 3.8 (3.5-5.1) mmol/L Chloride 99 (98-107) mmol/L Carbon Dioxide 26.3 (21.0-32.0) mmol/L BUN 16 (7.0-18.0) mg/dL Creatinine 1.1 H (0.6-1.0) mg/dL Est Cr Clr Drug Dosing 34.87 mL/min Estimated GFR (MDRD) 48.0 ml/min Glucose 190 H (74-106) mg/dL Calcium 8.8 (8.5-10.1) mg/dL Total Bilirubin 0.4 (0.2-1.0) mg/dL AST 17 (15-37) IU/L ALT 21 (14-63) IU/L Alkaline Phosphatase 56 (46-116) U/L Total Protein 6.9 (6.4-8.2) g/dL Albumin 3.3 L (3.4-5.0) g/dL Globulin 3.6 (2.6-4.0) g/dL Albumin/Globulin Ratio 0.9 (0.9-1.6) Urine Color YELLOW Urine Appearance CLEAR Urine pH 5.5 (5.0-8.0) Ur Specific [place] 1.020 (1.001-1.035) Urine Protein NEGATIVE (NEGATIVE) mg/dL Urine Glucose (UA) 100 H (NEGATIVE) mg/dL Urine Ketones NEGATIVE (NEGATIVE) mg/dL Urine Occult Blood NEGATIVE (NEGATIVE) Urine Nitrite NEGATIVE (NEGATIVE) Urine Bilirubin NEGATIVE (NEGATIVE) Urine Urobilinogen 0.2 (<2.0) EU/dL Ur Leukocyte Esterase NEGATIVE (NEGATIVE) Urine RBC 0-1 (0-2/HPF) Urine WBC 0-1 (0-5/HPF) Ur Epithelial Cells FEW (NONE-FEW) Urine Bacteria RARE (NEGATIVE) Urinalysis Comment Departure - Departure Time of Disposition: 10:26 Disposition: Home, Self-Care 01 Condition: Good Clinical Impression: Generalized weakness Referrals: PCP,Unknown [Primary Care Provider] - Forms: ED Department Discharge Additional Instructions: The following information is given to patients seen in the emergency department who are being discharged to home. This information is to outline your options for follow-up care. We provide all patients seen in our emergency department with a follow-up referral. The need for follow-up, as well as the timing and circumstances, are variable depending upon the specifics of your emergency department visit. If you don't have a primary care physician on staff, we will provide you with a referral. We always advise you to contact your personal physician following an emergency department visit to inform them of the circumstance of the visit and for follow-up with them and/or the need for any referrals to a consulting specialist. The emergency department will also refer you to a specialist when appropriate. This referral assures that you have the opportunity for follow-up care with a specialist. All of these measure are taken in an effort to provide you with optimal care, which includes your follow-up. Under all circumstances we always encourage you to contact your private physician who remains a resource for coordinating your care. When calling for follow-up care, please make the office aware that this follow-up is from your recent emergency room visit. If for any reason you are refused follow-up, please contact the [facility] Emergency Department at and asked to speak to the emergency department charge nurse. [facility] Primary [facility] [address] [place] [id number] - My Orders Last 24 Hours: My Active Orders 02/23/19 08:06 EKG 12 Lead [EKG Documentation Completion] [RC] STAT 02/23/19 08:28 Blood Glucose Check, Bedside [RC] ONETIME - Assessment/Plan Last 24 Hours: My Active Orders 02/23/19 08:06 EKG 12 Lead [EKG Documentation Completion] [RC] STAT 02/23/19 08:28 Blood Glucose Check, Bedside [RC] ONETIME
--- NOTE | 2019-02-23 09:06 | CR ---
INDICATION: Pain. Shortness of breath. COMPARISON: 08/15/2017. FINDINGS: A portable AP view of the chest was obtained. The cardiac silhouette and pulmonary vasculature are within normal limits. There is scarring in the left lung base. The lungs otherwise are clear. There are atherosclerotic calcifications. IMPRESSION: Stable chest x-ray. No evidence of acute pulmonary disease. Dictated by Luciano Edwards MD @ 02/23/2019 9:05:36 AM Dictated by: Luciano Edwards MD @ 02/23/2019 09:05:40 (Electronically Signed)
[2019-02-23 10:42] VITALS: BP 109/62
== END 2019-02-23 10:40 | disposition home or self-care (01) ==
LOC: MW.ED 07:54
DX: E87.1 Hypo-osmolality and hyponatremia (principal); R53.1 Weakness; I10 Essential (primary) hypertension; E78.00 Pure hypercholesterolemia, unspecified; E11.9 Type 2 diabetes mellitus without complications; Z79.01 Long term (current) use of anticoagulants; K21.9 Gastro-esophageal reflux disease without esophagitis; Z79.82 Long term (current) use of aspirin; Z79.84 Long term (current) use of oral hypoglycemic drugs; Z79.899 Other long term (current) drug therapy; Z88.2 Allergy status to sulfonamides; Z88.1 Allergy status to other antibiotic agents; Z91.09 Other allergy status, other than to drugs and biological substances; Z88.5 Allergy status to narcotic agent; Z88.8 Allergy status to other drugs, medicaments and biological substances
CPT/HCPCS: 36415; 71045; 71045-26; 80053; 81001; 85025; 93005; 99284-25

== ENCOUNTER 2019-04-27 19:59 | Emergency (ER) | payer MEDICARE, OTHER ==
--- NOTE | 2019-04-27 20:23 | EDM.PDOC ---
ED HPI GENERAL MEDICAL PROBLEM - General Chief Complaint: General Stated Complaint: PT IS WEAK Time Seen by Provider: 04/27/19 20:13 - History of Present Illness INITIAL COMMENTS - FREE TEXT/NARRATIVE: HISTORY AND PHYSICAL: History of present illness: The patient is a 78-year-old female who follows at [facility] and has a history of hypertension diabetes fluid retention hypercholesterolemia and coronary artery disease and presents with a one hour episode where she felt globally weak but did not pass out black out or fall and then a 10 minute episode of feeling clammy and sweaty which has all resolved. Earlier today she had a completely normal day without any systemic complaints or issues and has had no fevers chills upper respiratory tract infection abdominal pain vomiting and has been eating normally. With this episode of clamminess she had no chest pain no shortness of breath no headache neck or back pain no palpitations no abdominal pain or nausea. She currently says she feels pretty much back at her baseline although she still feels a little bit weak. There was no focal weakness in arms or legs right or left. Review of systems: As per history of present illness and below otherwise all systems reviewed and negative. Past medical history: As per history of present illness and as reviewed below otherwise noncontributory. Surgical history: As per history of present illness and as reviewed below otherwise noncontributory. Social history: No reported history of drug or alcohol abuse. Family history: As per history of present illness and as reviewed below otherwise noncontributory. Physical exam: General: Well-developed well-nourished female who is nontoxic and vital signs are noted by me. She moves easily in the ED without distress HEENT: Atraumatic, normocephalic, pupils reactive, negative for conjunctival pallor or scleral icterus, mucous membranes moist, throat clear, neck supple, nontender, trachea midline. Lungs: Clear to auscultation, breath sounds equal bilaterally, chest nontender. Heart: S1S2, regular, negative for clicks, rubs, or JVD. Abdomen: Soft, nondistended, nontender. Negative for masses or hepatosplenomegaly. Negative for costovertebral tenderness. Pelvis: Stable nontender. Genitourinary: Deferred. Rectal: Deferred. Extremities: Atraumatic, negative for cords or calf pain. Neurovascular unremarkable. pedal edema Neuro: Awake, alert, oriented. Cranial nerves II through XII unremarkable. Cerebellum unremarkable. Motor and sensory unremarkable throughout. Exam nonfocal. Diagnostics: EKG CBC CMP troponin UA with reflex Therapeutics: Monitor pulse oximetry Initially the patient did not want to have any testing done and is not sure why she has to have testing but upon further conversation I have offered her basic labs and an EKG although she does not want to be too invasive and only wants basic things done and she is agreeable to that. Today's BUN and creatinine were compared to prior and her BUN is slightly elevated and have encouraged the patient to push more hydration and to follow- up at [facility]. Impression: Generalized weakness improving, episode of shakiness/diaphoresis improved, mild dehydration Definitive disposition and diagnosis as appropriate pending reevaluation and review of above. denies pain Pain Score (Numeric/FACES): 0 - Related Data Allergies Allergy/AdvReac Type Severity Reaction Status Date / Time codeine Allergy Hives Verified 04/27/19 20:03 Iodine and Iodide Containing Allergy Airway Verified 04/27/19 20:03 Produc Tightness red dye Allergy Airway Verified 04/27/19 20:03 Tightness sulfamethoxazole Allergy Hives Verified 04/27/19 20:03 [From Bactrim] trimethoprim [From Bactrim] Allergy Hives Verified 04/27/19 20:03 ornade Spansules Allergy Hives Uncoded 04/27/19 20:03 Home Meds: Home Meds Hydrochlorothiazide 25 mg PO DAILY 04/23/15 [History] Lisinopril [Prinivil] 20 mg PO DAILY 04/23/15 [History] Aspirin [Adult Low Dose Aspirin EC] 1 tab PO DAILY 12/03/15 [History] Carvedilol 6.25 mg PO BID 12/03/15 [History] Cetirizine [ZyrTEC] 10 mg PO DAILY 12/03/15 [History] Glimepiride [Amaryl] 4 mg PO DAILY 12/03/15 [History] atorvaSTATin [Lipitor] 5 mg PO DAILY 08/01/17 [History] metFORMIN [Glucophage] 250 mg PO BEDTIME 08/01/17 [History] SitaGLIPtin [Januvia] 50 mg PO DAILY 01/18/19 [History] Furosemide [Lasix] 20 mg PO DAILY 04/27/19 [History] Past Medical History - Past Health History Medical/Surgical History: Denies Medical/Surgical History HEENT History: Reports: Other (See Below) Other HEENT History: wears glasses, has upper denture Cardiovascular History: Reports: High Cholesterol, Hypertension, MS, Other (See Below) Other Cardiovascular History: MS in 2014- no stents, TIA in 2002- no residual Respiratory History: Reports: None Gastrointestinal History: Reports: GERD Genitourinary History: Reports: 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: Musculoskeletal History: Reports: None Neurological History: Reports: TIA Other Neuro History: TIA- 2002, no residual Psychiatric History: Reports: None Endocrine/Metabolic History: Reports: Diabetes, Type II, Obesity/BMI 30+ Hematologic History: Reports: Anticoagulation Therapy Other Hematologic History: takes plavix Immunologic History: Reports: None Oncologic (Cancer) History: Reports: None Dermatologic History: Reports: None - Infectious Disease History Infectious Disease History: Reports: None - Past Surgical History Head Surgeries/Procedures: Reports: None HEENT Surgical History: Reports: None Cardiovascular Surgical History: Reports: None Respiratory Surgical History: Reports: None GI Surgical History: Reports: Cholecystectomy Female Surgical History: Reports: Hysterectomy, Other (See Below) Other Female Surgeries/Procedures: Anterior repair Endocrine Surgical History: Reports: None Neurological Surgical History: Reports: None Musculoskeletal Surgical History: Reports: None Oncologic Surgical History: Reports: None Dermatological Surgical History: Reports: None Social & Family History - Family History Family Medical History: Noncontributory - Caffeine Use Caffeine Use: Reports: Coffee ED ROS GENERAL - Review of Systems Review Of Systems: ROS reveals no pertinent complaints other than HPI. ED EXAM, GENERAL - Physical Exam Exam: See Below (see Dictation) Course - Vital Signs Last Recorded V/S: Last Vital Signs Temp 36.4 C 04/27/19 20:00 Pulse 83 04/27/19 20:00 Resp 18 04/27/19 20:00 BP 110/71 04/27/19 20:00 Pulse Ox 98 04/27/19 20:00 Orthostatic Blood Pressure [ 121/47 Standing] Orthostatic Blood Pressure [ 128/51 Sitting] Orthostatic Blood Pressure [ 137/46 Supine] - Orders/Labs/Meds Orders: Active Orders 24 hr Category Date Time Status EKG Documentation Completion [RC] STAT Care 04/27/19 20:19 Active Orthostatic Vital Signs [RC] ASDIRECTED Care 04/27/19 20:19 Active Labs: Laboratory Tests 04/27/19 04/27/19 04/27/19 Range/Units 20:30 20:30 21:10 WBC 7.41 (4.0-11.0) K/uL RBC 3.33 L (4.30-5.90) M/uL Hgb 10.8 L (12.0-16.0) g/dL Hct 31.6 L (36.0-46.0) % MCV 94.9 (80.0-98.0) fL MCH 32.4 H (27.0-32.0) pg MCHC 34.2 (31.0-37.0) g/dL RDW Std Deviation 44.5 (28.0-62.0) fl RDW Coeff of Greg 13 (11.0-15.0) % Plt Count 182 (150-400) K/uL MPV 9.60 (7.40-12.00) fL Neut % (Auto) 49.1 (48.0-80.0) % Lymph % (Auto) 41.7 H (16.0-40.0) % [place] % (Auto) 8.0 (0.0-15.0) % Eos % (Auto) 0.8 (0.0-7.0) % Baso % (Auto) 0.4 (0.0-1.5) % Neut # (Auto) 3.6 (1.4-5.7) K/uL Lymph # (Auto) 3.1 H (0.6-2.4) K/uL [place] # (Auto) 0.6 (0.0-0.8) K/uL Eos # (Auto) 0.1 (0.0-0.7) K/uL Baso # (Auto) 0.0 (0.0-0.1) K/uL Nucleated RBC % 0.0 /100WBC Nucleated RBCs # 0 K/uL Sodium 138 (136-145) mmol/L Potassium 3.6 (3.5-5.1) mmol/L Chloride 104 (98-107) mmol/L Carbon Dioxide 23.7 (21.0-32.0) mmol/L BUN 30 H (7.0-18.0) mg/dL Creatinine 1.4 H (0.6-1.0) mg/dL Est Cr Clr Drug Dosing 27.40 mL/min Estimated GFR (MDRD) 36.4 ml/min Glucose 125 H (74-106) mg/dL Calcium 8.7 (8.5-10.1) mg/dL Total Bilirubin 0.5 (0.2-1.0) mg/dL AST 13 L (15-37) IU/L ALT 20 (14-63) IU/L Alkaline Phosphatase 54 (46-116) U/L Troponin I < 0.050 (0.000-0.056) ng/mL Total Protein 6.2 L (6.4-8.2) g/dL Albumin 3.2 L (3.4-5.0) g/dL Globulin 3.0 (2.6-4.0) g/dL Albumin/Globulin Ratio 1.1 (0.9-1.6) Urine Color YELLOW Urine Appearance CLEAR Urine pH 5.5 (5.0-8.0) Ur Specific [place] 1.010 (1.001-1.035) Urine Protein NEGATIVE (NEGATIVE) mg/dL Urine Glucose (UA) NEGATIVE (NEGATIVE) mg/dL Urine Ketones NEGATIVE (NEGATIVE) mg/dL Urine Occult Blood NEGATIVE (NEGATIVE) Urine Nitrite NEGATIVE (NEGATIVE) Urine Bilirubin NEGATIVE (NEGATIVE) Urine Urobilinogen 0.2 (<2.0) EU/dL Ur Leukocyte Esterase NEGATIVE (NEGATIVE) Departure - Departure Time of Disposition: 21:30 Disposition: Home, Self-Care 01 Condition: Good Clinical Impression: Weakness generalized, Episodic lightheadedness - Discharge Information Referrals: PCP,None [Primary Care Provider] - Forms: ED Department Discharge Additional Instructions: The following information is given to patients seen in the emergency department who are being discharged to home. This information is to outline your options for follow-up care. We provide all patients seen in our emergency department with a follow-up referral. The need for follow-up, as well as the timing and circumstances, are variable depending upon the specifics of your emergency department visit. If you don't have a primary care physician on staff, we will provide you with a referral. We always advise you to contact your personal physician following an emergency department visit to inform them of the circumstance of the visit and for follow-up with them and/or the need for any referrals to a consulting specialist. The emergency department will also refer you to a specialist when appropriate. This referral assures that you have the opportunity for followup care with a specialist. All of these measure are taken in an effort to provide you with optimal care, which includes your followup. Under all circumstances we always encourage you to contact your private physician who remains a resource for coordinating your care. When calling for followup care, please make the office aware that this follow-up is from your recent emergency room visit. If for any reason you are refused follow-up, please contact the [facility] emergency department at and ask to speak to the emergency department charge nurse. [facility] Primary care- Internal Medicine and Family [address] [address] Please connect with your provider at [facility] or one of our providers for further care and reevaluation. Please continue all home medication and drink more fluids as today's lab tests show you are mildly dehydrated. Return to ER as needed and as discussed - My Orders Last 24 Hours: My Active Orders 04/27/19 20:19 EKG Documentation Completion [RC] STAT Orthostatic Vital Signs [RC] ASDIRECTED - Assessment/Plan Last 24 Hours: My Active Orders 04/27/19 20:19 EKG Documentation Completion [RC] STAT Orthostatic Vital Signs [RC] ASDIRECTED
[2019-04-27 20:58] LABS: BLOOD UREA NITROGEN,BUN 30 mg/dL (7.0-18.0); CARBON DIOXIDE,CO2 23.7 mmol/L (21.0-32.0); CHLORIDE,CL 104 mmol/L (98-107); GLUCOSE RANDOM 125 mg/dL (74-106); POTASSIUM,K 3.6 mmol/L (3.5-5.1); SODIUM,NA 138 mmol/L (136-145)
[2019-04-27 21:48] VITALS: BP 134/68; PULSE 69
== END 2019-04-27 21:46 | disposition home or self-care (01) ==
LOC: MW.ED 19:59
DX: R53.1 Weakness (principal); E86.0 Dehydration; R61 Generalized hyperhidrosis; R25.1 Tremor, unspecified; I10 Essential (primary) hypertension; E11.9 Type 2 diabetes mellitus without complications; E78.00 Pure hypercholesterolemia, unspecified; I25.2 Old myocardial infarction; E66.9 Obesity, unspecified; Z68.29 Body mass index [BMI] 29.0-29.9, adult; Z79.01 Long term (current) use of anticoagulants; Z88.5 Allergy status to narcotic agent; Z91.041 Radiographic dye allergy status; Z88.2 Allergy status to sulfonamides; Z88.8 Allergy status to other drugs, medicaments and biological substances; Z88.1 Allergy status to other antibiotic agents; Z79.82 Long term (current) use of aspirin; Z79.84 Long term (current) use of oral hypoglycemic drugs; Z79.899 Other long term (current) drug therapy
CPT/HCPCS: 36415; 80053; 81003; 84484; 85025; 93005; 99284-25

== ENCOUNTER 2019-09-16 22:59 | Emergency (ER) | payer MEDICARE, OTHER ==
--- NOTE | 2019-09-16 23:25 | EDM.PDOC ---
ED HPI GENERAL MEDICAL PROBLEM - General Chief Complaint: General Stated Complaint: HIGH BLOOD PRESSURE Time Seen by Provider: 09/16/19 23:11 - History of Present Illness INITIAL COMMENTS - FREE TEXT/NARRATIVE: HISTORY AND PHYSICAL: History of present illness: The patient is a 78-year-old female who follows at [facility] with Dr. Liu and has a history of hypertension diabetes hypercholesterolemia and actually saw her provider yesterday and was prescribed a new blood pressure medicine, amlodipine, for elevated blood pressure. She is already currently taking medications and the provider thought that she should have another med added because of elevated blood pressure in the clinic. The patient presents this evening to the ED because she is concerned about her blood pressure as it is been running on the higher side today and this evening it was 214/92 and she was worried. She is taking the amlodipine at evening times. She has no end organ complaints such as headache blurred vision chest pain shortness of breath abdominal pain nausea vomiting extremity numbness weakness or tingling and no extremity edema. The patient says she is only here because she is worried about the number. Review of systems: As per history of present illness and below otherwise all systems reviewed and negative. Past medical history: As per history of present illness and as reviewed below otherwise noncontributory. Surgical history: As per history of present illness and as reviewed below otherwise noncontributory. Social history: No reported history of drug or alcohol abuse. Family history: As per history of present illness and as reviewed below otherwise noncontributory. Physical exam: Well-developed well-nourished female who is nontoxic and vital signs are noted by me including her blood pressure. She is interactive and cooperative on evaluation HEENT: Atraumatic, normocephalic, negative for conjunctival pallor or scleral icterus, mucous membranes moist, throat clear, neck supple, nontender, trachea midline. Lungs: Clear to auscultation, breath sounds equal bilaterally, chest nontender. Heart: S1S2, regular and rhythm no overt murmurs Abdomen: Soft, nondistended, nontender. Negative for masses or hepatosplenomegaly. Negative for costovertebral tenderness. Pelvis: Stable nontender. Genitourinary: Deferred. Rectal: Deferred. Extremities: Atraumatic, negative for cords or calf pain. Neurovascular unremarkable. No pedal edema Neuro: Awake, alert, oriented. Cranial nerves II through XII unremarkable. Cerebellum unremarkable. Motor and sensory unremarkable throughout. Exam nonfocal. Diagnostics: [] Therapeutics: [] I discussed with the patient at great length that her new medication would take some time to lower her blood pressure and currently her blood pressure in the ED is 178/79 which I would not intervene on. We had a long conversation about her diet and trying to watch her sodium intake as well as keeping a blood pressure journal and the times she should be doing that as well as connecting with her provider in the clinic. I have advised her on reasons to return and need to connect with her provider within the next 7 to 10 days to discuss her new medication and her blood pressure journal. Impression: Medical screening exam, hypertension with history of same stable Definitive disposition and diagnosis as appropriate pending reevaluation and review of above. - Related Data Allergies Allergy/AdvReac Type Severity Reaction Status Date / Time codeine Allergy Hives Verified 09/16/19 23:08 Iodine and Iodide Containing Allergy Airway Verified 09/16/19 23:08 Produc Tightness red dye Allergy Airway Verified 09/16/19 23:08 Tightness sulfamethoxazole Allergy Hives Verified 09/16/19 23:08 [From Bactrim] trimethoprim [From Bactrim] Allergy Hives Verified 09/16/19 23:08 ornade Spansules Allergy Hives Uncoded 09/16/19 23:08 Home Meds: Home Meds Hydrochlorothiazide 25 mg PO DAILY 04/23/15 [History] Lisinopril [Prinivil] 20 mg PO DAILY 04/23/15 [History] Aspirin [Adult Low Dose Aspirin EC] 1 tab PO DAILY 12/03/15 [History] Cetirizine [ZyrTEC] 10 mg PO DAILY 12/03/15 [History] Glimepiride [Amaryl] 4 mg PO DAILY 12/03/15 [History] carvediloL [Carvedilol] 6.25 mg PO BID 12/03/15 [History] atorvaSTATin [Lipitor] 5 mg PO DAILY 08/01/17 [History] metFORMIN [Glucophage] 250 mg PO BEDTIME 08/01/17 [History] SitaGLIPtin [Januvia] 50 mg PO DAILY 01/18/19 [History] Furosemide [Lasix] 20 mg PO DAILY 04/27/19 [History] Past Medical History - Past Health History Medical/Surgical History: Denies Medical/Surgical History HEENT History: Reports: Other (See Below) Other HEENT History: wears glasses, has upper denture Cardiovascular History: Reports: High Cholesterol, Hypertension, PR, Other (See Below) Other Cardiovascular History: PR in 2014- no stents, TIA in 2002- no residual Respiratory History: Reports: None Gastrointestinal History: Reports: GERD Genitourinary History: Reports: 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: Musculoskeletal History: Reports: None Neurological History: Reports: TIA Other Neuro History: TIA- 2002, no residual Psychiatric History: Reports: None Endocrine/Metabolic History: Reports: Diabetes, Type II, Obesity/BMI 30+ 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 Hematologic History: Reports: Anticoagulation Therapy Other Hematologic History: takes plavix Immunologic History: Reports: None Oncologic (Cancer) History: Reports: None Dermatologic History: Reports: None - Infectious Disease History Infectious Disease History: Reports: None - Past Surgical History Head Surgeries/Procedures: Reports: None HEENT Surgical History: Reports: None Cardiovascular Surgical History: Reports: None Respiratory Surgical History: Reports: None GI Surgical History: Reports: Cholecystectomy Female Surgical History: Reports: Hysterectomy, Other (See Below) Other Female Surgeries/Procedures: Anterior repair Endocrine Surgical History: Reports: None Neurological Surgical History: Reports: None Musculoskeletal Surgical History: Reports: None Oncologic Surgical History: Reports: None Dermatological Surgical History: Reports: None Social & Family History - Family History Family Medical History: Noncontributory - Tobacco Use Smoking Status *Q: Never Smoker - Caffeine Use Caffeine Use: Reports: Coffee - Recreational Drug Use Recreational Drug Use: No ED ROS GENERAL - Review of Systems Review Of Systems: Comprehensive ROS is negative, except as noted in HPI. ED EXAM, GENERAL - Physical Exam Exam: See Below (See dictation) Course - Vital Signs Last Recorded V/S: Last Vital Signs Temp 36.4 C 09/16/19 23:05 Pulse 79 09/16/19 23:05 Resp 18 09/16/19 23:05 BP 178/79 H 09/16/19 23:05 Pulse Ox 96 09/16/19 23:05 Departure - Departure Time of Disposition: 23:24 Disposition: Home, Self-Care 01 Condition: Good Clinical Impression: Encounter for medical screening examination Hypertension Qualifiers: Hypertension type: unspecified Qualified Code(s): I10 - Essential (primary) hypertension - Discharge Information Referrals: Leslee Liu MD [Primary Care Provider] - Additional Instructions: The following information is given to patients seen in the emergency department who are being discharged to home. This information is to outline your options for follow-up care. We provide all patients seen in our emergency department with a follow-up referral. The need for follow-up, as well as the timing and circumstances, are variable depending upon the specifics of your emergency department visit. If you don't have a primary care physician on staff, we will provide you with a referral. We always advise you to contact your personal physician following an emergency department visit to inform them of the circumstance of the visit and for follow-up with them and/or the need for any referrals to a consulting specialist. The emergency department will also refer you to a specialist when appropriate. This referral assures that you have the opportunity for followup care with a specialist. All of these measure are taken in an effort to provide you with optimal care, which includes your followup. Under all circumstances we always encourage you to contact your private physician who remains a resource for coordinating your care. When calling for followup care, please make the office aware that this follow-up is from your recent emergency room visit. If for any reason you are refused follow-up, please contact the [facility] emergency department at and ask to speak to the emergency department charge nurse. [facility] Primary care- Internal Medicine and Family [address] [address] Try just watch sodium intake in your diet and start reading labels to reduce foods in your world that have higher sodiums. Please take all of your medications as prescribed to you and call your provider tomorrow to schedule a follow-up appointment as we discussed. Continue with your blood pressure journal and return to ER as needed and as discussed Sepsis Event Note - Evaluation Sepsis Screening Result: No Definite Risk - Focused Exam Vital Signs: Vital Signs Temp Pulse Resp BP Pulse Ox 09/16/19 23:05 36.4 C 79 18 178/79 H 96 Date Exam was Performed: 09/16/19 Time Exam was Performed: 23:21
[2019-09-16 23:54] VITALS: BP 174/61; PULSE 68
== END 2019-09-16 23:40 | disposition home or self-care (01) ==
LOC: MW.ED 22:59
DX: I10 Essential (primary) hypertension (principal); Z13.6 Encounter for screening for cardiovascular disorders; E11.9 Type 2 diabetes mellitus without complications; E78.00 Pure hypercholesterolemia, unspecified; I25.2 Old myocardial infarction; E66.9 Obesity, unspecified; Z68.29 Body mass index [BMI] 29.0-29.9, adult; Z79.899 Other long term (current) drug therapy; Z88.5 Allergy status to narcotic agent; Z88.1 Allergy status to other antibiotic agents; Z88.8 Allergy status to other drugs, medicaments and biological substances; Z91.048 Other nonmedicinal substance allergy status; Z79.82 Long term (current) use of aspirin; Z79.84 Long term (current) use of oral hypoglycemic drugs; Z86.73 Personal history of transient ischemic attack (TIA), and cerebral infarction without residual deficits
CPT/HCPCS: 99283

== ENCOUNTER 2019-10-02 20:46 | Emergency (ER) | payer MEDICARE, OTHER ==
--- NOTE | 2019-10-02 21:26 | EDM.PDOC ---
ED HPI GENERAL MEDICAL PROBLEM - General Chief Complaint: Cardiovascular Problem Stated Complaint: HIGH BLOOD PRESSURE Time Seen by Provider: 10/02/19 21:24 Source of Information: Reports: Patient - History of Present Illness INITIAL COMMENTS - FREE TEXT/NARRATIVE: The patient is a 78-year-old female with a history of hypertension presents to the ER for hypertension. She states that she came here a couple of weeks ago for the same thing and something must be wrong because her blood pressure is still high. She records it once at 10 AM and another time at 4 PM. She did another recording at home because she felt hot so she felt like her blood pressure was elevated and it was. No headaches, no chest pain, no speech impediment, no difficulty walking, no nausea vomiting or any other acute complaints. She wants to know why her blood pressure is still high. Her primary care physician 2 weeks ago adjusted her medications. - Related Data Allergies Allergy/AdvReac Type Severity Reaction Status Date / Time codeine Allergy Hives Verified 10/02/19 21:06 Iodine and Iodide Containing Allergy Airway Verified 10/02/19 21:06 Produc Tightness red dye Allergy Airway Verified 10/02/19 21:06 Tightness sulfamethoxazole Allergy Hives Verified 10/02/19 21:06 [From Bactrim] trimethoprim [From Bactrim] Allergy Hives Verified 10/02/19 21:06 ornade Spansules Allergy Hives Uncoded 10/02/19 21:06 Home Meds: Home Meds Lisinopril [Prinivil] 20 mg PO DAILY 04/23/15 [History] Aspirin [Adult Low Dose Aspirin EC] 1 tab PO DAILY 12/03/15 [History] Glimepiride [Amaryl] 4 mg PO BID 12/03/15 [History] carvediloL [Carvedilol] 6.25 mg PO BID 12/03/15 [History] metFORMIN [Glucophage] 1,000 mg PO BEDTIME 08/01/17 [History] SitaGLIPtin [Januvia] 50 mg PO DAILY 01/18/19 [History] Furosemide [Lasix] 20 mg PO DAILY 04/27/19 [History] Esomeprazole Magnesium 20 mg PO DAILY 10/02/19 [History] Past Medical History - Past Health History Medical/Surgical History: Denies Medical/Surgical History HEENT History: Reports: Other (See Below) Other HEENT History: wears glasses, has upper denture Cardiovascular History: Reports: High Cholesterol, Hypertension, AR, Other (See Below) Other Cardiovascular History: 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, TIA in 2002- no residual Respiratory History: Reports: None Gastrointestinal History: Reports: GERD Genitourinary History: Reports: None 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: Musculoskeletal History: Reports: None Neurological History: Reports: TIA Other Neuro History: TIA- 2002, no residual Psychiatric History: Reports: None Endocrine/Metabolic History: Reports: Diabetes, Type II, Obesity/BMI 30+ Insulin Pump Model and Epidemiologist: None Hematologic History: Reports: Anticoagulation Therapy Other Hematologic History: takes plavix Immunologic History: Reports: None Oncologic (Cancer) History: Reports: None Dermatologic History: Reports: None - Infectious Disease History Infectious Disease History: Reports: None - Past Surgical History Head Surgeries/Procedures: Reports: None HEENT Surgical History: Reports: None Cardiovascular Surgical History: Reports: None Respiratory Surgical History: Reports: None GI Surgical History: Reports: Cholecystectomy Female Surgical History: Reports: Hysterectomy, Other (See Below) Other Female Surgeries/Procedures: Anterior repair Endocrine Surgical History: Reports: None Neurological Surgical History: Reports: None Musculoskeletal Surgical History: Reports: None Oncologic Surgical History: Reports: None Dermatological Surgical History: Reports: None Social & Family History - Family History Family Medical History: Noncontributory - Tobacco Use Smoking Status *Q: Former Smoker Used Tobacco, but Quit: Yes Month/Year Tobacco Last Used: 1974 - Caffeine Use Caffeine Use: Reports: Tea - Recreational Drug Use Recreational Drug Use: No ED ROS GENERAL - Review of Systems Review Of Systems: See Below (Positive for hypertension, positive for feeling flushed, negative for headache, negative for visual changes, negative for chest pain, negative shortness of breath, negative for weakness, all other Positives and pertinent negatives as per HPI. All other pertinent systems were reviewed and are negative) ED EXAM, GENERAL - Physical Exam Exam: See Below Free Text/Narrative:: Constitutional: No acute distress, Non-toxic appearance. HEENT: Normocephalic, Atraumatic, pupils equal round reactive to light, EOMI Neck: Normal range of motion, No stridor, trachea midline Respiratory: No respiratory distress, No tachypnea Cardiovascular: Deferred Gastrointestinal: Deferred Genital / Urinary: Deferred Musculoskeletal: All four extremities present and atraumatic Back: FROM Integument: Warm, Dry, Color is ethnicity appropriate, No rash. Neuro: Alert, Awake, x3, cranial nerves grossly intact, normal gait, no focal deficits noted Psych: Affect, Judgement, mood normal Course - Vital Signs Text/Narrative:: There is nothing per history or exam that sounds like a hypertensive emergency. Hypertensive management was explained to the patient in detail and I feel that her primary care physician is managing this appropriately and the patient needs to continue to monitor her blood pressure, and follow-up with her doctor as scheduled who will readjust her medications as needed. Last Recorded V/S: Last Vital Signs Temp 36.2 C 10/02/19 21:50 Pulse 71 10/02/19 21:50 Resp 16 10/02/19 21:50 BP 184/67 H 10/02/19 21:50 Pulse Ox 94 L 10/02/19 21:50 Departure - Departure Time of Disposition: 21:26 Disposition: Home, Self-Care 01 Condition: Good Clinical Impression: Hypertension Qualifiers: Hypertension type: unspecified Qualified Code(s): I10 - Essential (primary) hypertension Instructions: Hypertension, [id number] Referrals: Leslee Liu MD [Primary Care Provider] - Forms: ED Department Discharge Additional Instructions: Hypertension Hypertension is another name for high blood pressure. High blood pressure forces your heart to work harder to pump blood. A blood pressure reading has two numbers, which includes a higher number over a lower number (example: 110/72 ). Generally, people with high blood pressure develop it over a long period of time ( often years ), and so in absence of an emergency ( stroke, heart attack, etc ) it should be decrease slowly, over time. HOME CARE Have your blood pressure rechecked by your doctor. Take your blood pressure twice a day, once in the morning, once in the evening and write the results down. There is no need to do more than that. Give these results to your doctor. For many people, if you improve you lifestyle by exercising more, eating correctly and losing weight, their blood pressure often improves and many times they do not need medications anymore. ( And by eating correctly, it does not mean that you can't occasionally have cookies, ice cream, or drink some alcohol , etc. - just do so in moderation ) RETURN TO THE ER IF: You get a very bad, sudden onset headache You can't move part of your body You are having severe chest pain and shortness of breath or any other concerns. Care Plan Goals: The following information is given to patients seen in the emergency department who are being discharged to home. This information is to outline your options for follow-up care. We provide all patients seen in our emergency department with a follow-up referral. The need for follow-up, as well as the timing and circumstances, are variable depending upon the specifics of your emergency department visit. If you don't have a primary care physician on staff, we will provide you with a referral. We always advise you to contact your personal physician following an emergency department visit to inform them of the circumstance of the visit and for follow-up with them and/or the need for any referrals to a consulting specialist. The emergency department will also refer you to a specialist when appropriate. This referral assures that you have the opportunity for follow-up care with a specialist. All of these measure are taken in an effort to provide you with optimal care, which includes your follow-up. Under all circumstances we always encourage you to contact your private physician who remains a resource for coordinating your care. When calling for follow-up care, please make the office aware that this follow-up is from your recent emergency room visit. If for any reason you are refused follow-up, please contact the [facility] at and asked to speak to the emergency department charge nurse. [facility] [address] [place] [id number] [address] Sepsis Event Note - Evaluation Sepsis Screening Result: No Definite Risk - Focused Exam Vital Signs: Vital Signs Temp Pulse Resp BP Pulse Ox 10/02/19 21:50 36.2 C 71 16 184/67 H 94 L 10/02/19 21:04 36.3 C 78 18 173/64 H 95 Date Exam was Performed: 10/02/19 Time Exam was Performed: 22:18
== END 2019-10-02 21:55 | disposition home or self-care (01) ==
LOC: MW.ED 20:46
CPT/HCPCS: 99283

== ENCOUNTER 2019-12-21 10:42 | Emergency (ER) | payer MEDICARE, OTHER ==
--- NOTE | 2019-12-21 11:19 | EDM.PDOC ---
ED HPI GENERAL MEDICAL PROBLEM - General Chief Complaint: General Stated Complaint: PT HAS NOT BEEN FEELING WELL SINCE SUNDAY Time Seen by Provider: 12/21/19 11:14 Source of Information: Reports: Patient History Limitations: Reports: No Limitations - History of Present Illness INITIAL COMMENTS - FREE TEXT/NARRATIVE: Is a 79-year-old female presents emergency room nausea vomiting not feeling well for 2 to 3 days. Denies any abdominal pain, chest pain or headaches. Onset: Today Duration: Day(s): Location: Reports: Abdomen Quality: Reports: Ache Severity: Mild Improves with: Reports: None Worsens with: Reports: None Context: Reports: Activity Associated Symptoms: Reports: No Other Symptoms, Nausea/Vomiting - Related Data Allergies Allergy/AdvReac Type Severity Reaction Status Date / Time codeine Allergy Hives Verified 12/21/19 11:04 Iodine and Iodide Containing Allergy Airway Verified 12/21/19 11:04 Produc Tightness red dye Allergy Airway Verified 12/21/19 11:04 Tightness sulfamethoxazole Allergy Hives Verified 12/21/19 11:04 [From Bactrim] trimethoprim [From Bactrim] Allergy Hives Verified 12/21/19 11:04 ornade Spansules Allergy Hives Uncoded 12/21/19 11:04 Home Meds: Home Meds Lisinopril [Prinivil] 20 mg PO DAILY 04/23/15 [History] Aspirin [Adult Low Dose Aspirin EC] 1 tab PO DAILY 12/03/15 [History] Glimepiride [Amaryl] 4 mg PO BID 12/03/15 [History] carvediloL [Carvedilol] 12.5 mg PO BID 12/03/15 [History] metFORMIN [Glucophage] 2 tab PO DAILY 08/01/17 [History] SitaGLIPtin [Januvia] 50 mg PO DAILY 01/18/19 [History] Furosemide [Lasix] 20 mg PO DAILY 04/27/19 [History] Esomeprazole Magnesium 20 mg PO DAILY 10/02/19 [History] Past Medical History - Past Health History Medical/Surgical History: Denies Medical/Surgical History HEENT History: Reports: Other (See Below) Other HEENT History: wears glasses, has upper denture Cardiovascular History: Reports: High Cholesterol, Hypertension, AR, Other (See Below) Other Cardiovascular History: 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, TIA in 2003- no residual Respiratory History: Reports: None Gastrointestinal History: Reports: GERD Genitourinary History: Reports: None 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: Musculoskeletal History: Reports: None Neurological History: Reports: TIA Other Neuro History: TIA- 2002, no residual Psychiatric History: Reports: None Endocrine/Metabolic History: Reports: Diabetes, Type II, Obesity/BMI 30+ Insulin Pump Model and Refinery Operator Helper Crude Unit: None Hematologic History: Reports: Anticoagulation Therapy Other Hematologic History: takes plavix Immunologic History: Reports: None Oncologic (Cancer) History: Reports: None Dermatologic History: Reports: None - Infectious Disease History Infectious Disease History: Reports: None - Past Surgical History Head Surgeries/Procedures: Reports: None HEENT Surgical History: Reports: None Cardiovascular Surgical History: Reports: None Respiratory Surgical History: Reports: None GI Surgical History: Reports: Cholecystectomy Female Surgical History: Reports: Hysterectomy, Other (See Below) Other Female Surgeries/Procedures: Anterior repair Endocrine Surgical History: Reports: None Neurological Surgical History: Reports: None Musculoskeletal Surgical History: Reports: None Oncologic Surgical History: Reports: None Dermatological Surgical History: Reports: None Social & Family History - Family History Family Medical History: Noncontributory - Tobacco Use Smoking Status *Q: Never Smoker - Caffeine Use Caffeine Use: Reports: Tea - Recreational Drug Use Recreational Drug Use: No ED ROS GENERAL - Review of Systems Review Of Systems: See Below Constitutional: Reports: No Symptoms HEENT: Reports: No Symptoms Respiratory: Reports: No Symptoms Cardiovascular: Reports: No Symptoms Endocrine: Reports: No Symptoms GI/Abdominal: Reports: Nausea : Reports: No Symptoms Musculoskeletal: Reports: No Symptoms Skin: Reports: No Symptoms Neurological: Reports: No Symptoms Psychiatric: Reports: No Symptoms Hematologic/Lymphatic: Reports: No Symptoms Immunologic: Reports: No Symptoms ED EXAM, GENERAL - Physical Exam Exam: See Below Exam Limited By: No Limitations General Appearance: Alert, WD/WN, No Apparent Distress Eye Exam: Bilateral Eye: Normal Fundi, Normal Inspection Ear Exam: Bilateral Ear: Auricle Normal, Canal Normal Nose: Normal Inspection, Normal Mucosa, No Blood, Nasal Deformity Throat/Mouth: Normal Inspection, Normal Lips, Normal Teeth, Normal Oropharynx, Normal Voice Respiratory/Chest: No Accessory Muscle Use Cardiovascular: Normal Peripheral Pulses, Regular Rate, Rhythm, No JVD, No Murmur GI/Abdominal: Normal Bowel Sounds, Soft, Non-Tender, No Organomegaly, No Distention, No Abnormal Bruit (Female) Exam: Deferred Rectal (Female) Exam: Deferred Back Exam: Normal Inspection, Full Range of Motion Extremities: Normal Inspection, Normal Range of Motion Neurological: Alert, Oriented, CN II-XII Intact, Normal Reflexes Psychiatric: Normal Affect, Normal Mood Skin Exam: Warm, Dry, Intact Lymphatic: No Adenopathy Course - Vital Signs Text/Narrative:: This 79-year-old female who is a diabetic has not been eating well for the past few days. Laboratory results reflect that the patient has a blood glucose of 500 but patient is not ketotic at this time. I have given the patient a liter of fluids and also 5 units of insulin. Her blood sugar now is 380. And patient is in no distress Assessment: Diabetic with hyper glycemia Last Recorded V/S: Last Vital Signs Temp 96.7 F L 12/21/19 11:04 Pulse 62 12/21/19 12:23 Resp 20 12/21/19 12:23 BP 156/68 H 12/21/19 12:23 Pulse Ox 97 12/21/19 12:23 - Orders/Labs/Meds Labs: Laboratory Tests 12/21/19 12/21/19 12/21/19 Range/Units 11:15 11:15 12:55 WBC 8.75 (4.0-11.0) K/uL RBC 4.21 L (4.30-5.90) M/uL Hgb 13.5 (12.0-16.0) g/dL Hct 40.6 (36.0-46.0) % MCV 96.4 (80.0-98.0) fL MCH 32.1 H (27.0-32.0) pg MCHC 33.3 (31.0-37.0) g/dL RDW Std Deviation 43.3 (28.0-62.0) fl RDW Coeff of Greg 12 (11.0-15.0) % Plt Count 220 (150-400) K/uL MPV 10.20 (7.40-12.00) fL Neut % (Auto) 64.1 (48.0-80.0) % Lymph % (Auto) 28.9 (16.0-40.0) % [place] % (Auto) 5.4 (0.0-15.0) % Eos % (Auto) 1.4 (0.0-7.0) % Baso % (Auto) 0.2 (0.0-1.5) % Neut # (Auto) 5.6 (1.4-5.7) K/uL Lymph # (Auto) 2.5 H (0.6-2.4) K/uL [place] # (Auto) 0.5 (0.0-0.8) K/uL Eos # (Auto) 0.1 (0.0-0.7) K/uL Baso # (Auto) 0.0 (0.0-0.1) K/uL Nucleated RBC % 0.0 /100WBC Nucleated RBCs # 0 K/uL Sodium 135 L (136-145) mmol/L Potassium 4.4 (3.5-5.1) mmol/L Chloride 97 L (98-107) mmol/L Carbon Dioxide 29.8 (21.0-32.0) mmol/L BUN 19 H (7.0-18.0) mg/dL Creatinine 1.3 H (0.6-1.0) mg/dL Est Cr Clr Drug Dosing 29.03 mL/min Estimated GFR (MDRD) 39.5 ml/min Glucose 500 H (74-106) mg/dL POC Glucose 383 H (60-110) mg/dL Calcium 9.2 (8.5-10.1) mg/dL Total Bilirubin 0.5 (0.2-1.0) mg/dL AST 12 L (15-37) IU/L ALT 19 (14-63) IU/L Alkaline Phosphatase 91 (46-116) U/L Troponin I < 0.050 (0.000-0.056) ng/mL Total Protein 7.5 (6.4-8.2) g/dL Albumin 3.8 (3.4-5.0) g/dL Globulin 3.7 (2.6-4.0) g/dL Albumin/Globulin Ratio 1.0 (0.9-1.6) Meds: Medications Discontinued Medications Generic Name Dose Route Start Last Admin Trade Name Freq PRN Reason Stop Dose Admin Sodium Chloride 1,000 mls @ 1,000 mls/hr 12/21/19 11:57 12/21/19 12:20 Normal Saline IV 12/21/19 12:56 1,000 mls/hr .Bolus ONE Administration Insulin Human Regular 5 unit 12/21/19 11:57 12/21/19 12:20 Novolin R IVPUSH 12/21/19 11:58 5 unit ONETIME ONE Administration Protocol Departure - Departure Time of Disposition: 13:01 Disposition: Home, Self-Care 01 Condition: Good Clinical Impression: Hyperglycemia due to diabetes mellitus Diabetes Qualifiers: Diabetes mellitus type: type 2 Diabetes mellitus prison insulin use: without extermination inspector use Diabetes mellitus complication status: without complication Qualified Code(s): E11.9 - Type 2 diabetes mellitus without complications - Discharge Information Instructions: Type 2 Diabetes Mellitus, Diagnosis, Adult, Hyperglycemia, Easy- to-Read, Type 2 Diabetes Mellitus, Diagnosis, Adult, [id number] Referrals: Leslee Liu MD [Primary Care Provider] - Forms: ED Department Discharge Sepsis Event Note - Evaluation Sepsis Screening Result: No Definite Risk - Focused Exam Vital Signs: Vital Signs Temp Pulse Resp BP Pulse Ox 12/21/19 12:23 62 20 156/68 H 97 12/21/19 11:04 96.7 F L 89 18 136/63 95 Date Exam was Performed: 12/21/19 Time Exam was Performed: 12:59
[2019-12-21 11:46] LABS: BLOOD UREA NITROGEN,BUN 19 mg/dL (7.0-18.0); CARBON DIOXIDE,CO2 29.8 mmol/L (21.0-32.0); CHLORIDE,CL 97 mmol/L (98-107); POTASSIUM,K 4.4 mmol/L (3.5-5.1); SODIUM,NA 135 mmol/L (136-145)
[2019-12-21 11:54] LABS: GLUCOSE RANDOM 500 mg/dL (74-106)
[2019-12-21] MEDS ORDERED: Sodium Chloride 0.9% 1,000 ML IV ONE (11:57)
[2019-12-21] MEDS ORDERED: Insulin Regular, Human 100 Units/ML 10 ML Vial IVPUSH ONE (11:57)
[2019-12-21 13:31] VITALS: BP 133/62; PULSE 60
== END 2019-12-21 13:31 | disposition home or self-care (01) ==
LOC: MW.ED 10:42
DX: E11.65 Type 2 diabetes mellitus with hyperglycemia (principal); E78.00 Pure hypercholesterolemia, unspecified; I10 Essential (primary) hypertension; I25.2 Old myocardial infarction; Z86.73 Personal history of transient ischemic attack (TIA), and cerebral infarction without residual deficits; K21.9 Gastro-esophageal reflux disease without esophagitis; E66.9 Obesity, unspecified; Z68.28 Body mass index [BMI] 28.0-28.9, adult; Z88.5 Allergy status to narcotic agent; Z79.02 Long term (current) use of antithrombotics/antiplatelets; Z91.048 Other nonmedicinal substance allergy status; Z88.2 Allergy status to sulfonamides; Z88.1 Allergy status to other antibiotic agents; Z88.8 Allergy status to other drugs, medicaments and biological substances; Z79.899 Other long term (current) drug therapy; Z79.82 Long term (current) use of aspirin; Z79.84 Long term (current) use of oral hypoglycemic drugs
CPT/HCPCS: 36415; 80053; 82962; 84484; 85025; 96360; 99284; J7030; 99283; J1815-GY

== ENCOUNTER 2020-03-30 18:55 | Emergency (ER) | payer MEDICARE, OTHER ==
[2020-03-30] MEDS ORDERED: Acetaminophen 325 MG Tab PO ONE (19:18)
[2020-03-30] MEDS ORDERED: cloNIDine 0.1 MG Tab PO ONE (19:18)
[2020-03-30] MEDS ORDERED: Labetalol 100 MG Tab PO ONE (19:18)
--- NOTE | 2020-03-30 19:21 | EDM.PDOC ---
ED HPI GENERAL MEDICAL PROBLEM - General Chief Complaint: Cardiovascular Problem Stated Complaint: ELEVATED BLOOD PRESSURE Time Seen by Provider: 03/30/20 19:04 Source of Information: Reports: Patient History Limitations: Reports: No Limitations - History of Present Illness INITIAL COMMENTS - FREE TEXT/NARRATIVE: History of present illness: Patient is 79-year-old female with a history of hypertension who presents with a headache and significant hypertension since just after lunch today. She noticed the headache come on, she took her blood pressure and saw that it was over 200 systolic, she is on lisinopril, carvedilol, Lasix, among other medications to control her chronic medical problems including hypertension. She did not take an extra dose of any of these meds. She did not take any Tylenol or other [id number] pain medicine to treat her headache. She states this happens from time to time, she denies any chest pain or shortness of breath. She denies recent fever or chills, no URI symptoms, no focal neuro deficits, no neck stiffness, no rash. Headache has been gradual in onset. Currently mild. Review of systems: As per history of present illness and below otherwise all systems reviewed and negative. Past medical history: As per history of present illness and as reviewed below otherwise noncontributory. Surgical history: As per history of present illness and as reviewed below otherwise noncontributory. Social history: No reported history of drug or alcohol abuse. Family history: As per history of present illness and as reviewed below otherwise noncontributory. Physical exam: General: Awake, alert, no acute distress, A&O X3. HEENT: Atraumatic, normocephalic, pupils reactive, negative for conjunctival pallor or scleral icterus, mucous membranes moist, throat clear, neck supple, nontender, trachea midline. Lungs: Clear to auscultation, breath sounds equal bilaterally, chest nontender. Heart: RRR, normal S1S2, no JVD. Abdomen: Soft, nondistended, nontender. Negative for masses or hepatosplenomegaly. Negative for costovertebral tenderness. Pelvis: Stable nontender. Genitourinary: Deferred. Rectal: Deferred. Extremities: Atraumatic, no edema, Neurovascular unremarkable. Neuro: Motor and sensory grossly intact throughout. Exam nonfocal. Diagnostics: [] Therapeutics: [] Impression: [] Plan: [] Definitive disposition and diagnosis as appropriate pending reevaluation and review of above. - Related Data Allergies Allergy/AdvReac Type Severity Reaction Status Date / Time codeine Allergy Hives Verified 03/30/20 19:15 Iodine and Iodide Containing Allergy Airway Verified 03/30/20 19:15 Produc Tightness red dye Allergy Airway Verified 03/30/20 19:15 Tightness sulfamethoxazole Allergy Hives Verified 03/30/20 19:15 [From Bactrim] trimethoprim [From Bactrim] Allergy Hives Verified 03/30/20 19:15 ornade Spansules Allergy Hives Uncoded 03/30/20 19:15 Home Meds: Home Meds Lisinopril [Prinivil] 20 mg PO DAILY 04/23/15 [History] Aspirin [Adult Low Dose Aspirin EC] 1 tab PO DAILY 12/03/15 [History] Glimepiride [Amaryl] 4 mg PO BID 12/03/15 [History] carvediloL [Carvedilol] 12.5 mg PO BID 12/03/15 [History] metFORMIN [Glucophage] 2 tab PO DAILY 08/01/17 [History] SitaGLIPtin [Januvia] 50 mg PO DAILY 01/18/19 [History] Furosemide [Lasix] 20 mg PO DAILY 04/27/19 [History] Esomeprazole Magnesium 20 mg PO DAILY 10/02/19 [History] Past Medical History - Past Health History Medical/Surgical History: Denies Medical/Surgical History HEENT History: Reports: Other (See Below) Other HEENT History: wears glasses, has upper denture Cardiovascular History: Reports: High Cholesterol, Hypertension, MT, Other (See Below) Other Cardiovascular History: MT in 2014- no stents, TIA in 2002- no residual Respiratory History: Reports: None Gastrointestinal History: Reports: GERD Genitourinary History: Reports: None RESIN MIXER History: Reports: Musculoskeletal History: Reports: None Neurological History: Reports: TIA Other Neuro History: TIA- 2002, no residual Psychiatric History: Reports: None Endocrine/Metabolic History: Reports: Diabetes, Type II, Obesity/BMI 30+ Insulin Pump Model and Astrophysics Teacher: None Hematologic History: Reports: Anticoagulation Therapy Other Hematologic History: takes plavix Immunologic History: Reports: None Oncologic (Cancer) History: Reports: None Dermatologic History: Reports: None - Infectious Disease History Infectious Disease History: Reports: None - Past Surgical History Head Surgeries/Procedures: Reports: None HEENT Surgical History: Reports: None Cardiovascular Surgical History: Reports: None Respiratory Surgical History: Reports: None GI Surgical History: Reports: Cholecystectomy Female Surgical History: Reports: Hysterectomy, Other (See Below) Other Female Surgeries/Procedures: Anterior repair Endocrine Surgical History: Reports: None Neurological Surgical History: Reports: None Musculoskeletal Surgical History: Reports: None Oncologic Surgical History: Reports: None Dermatological Surgical History: Reports: None Social & Family History - Family History Family Medical History: Noncontributory - Tobacco Use Smoking Status *Q: Former Smoker Used Tobacco, but Quit: Yes Month/Year Tobacco Last Used: 1994 - Caffeine Use Caffeine Use: Reports: Tea - Recreational Drug Use Recreational Drug Use: No ED ROS GENERAL - Review of Systems Review Of Systems: Comprehensive ROS is negative, except as noted in HPI. ED EXAM, GENERAL - Physical Exam Exam: See Below (see h and p) Course - Vital Signs Text/Narrative:: Reevaluation shows her blood pressure is now improved into the 160/60 range. She states her headache is resolved. She has no other complaints or issues at this time. Stable vital signs. I encouraged her to follow-up in the outpatient setting with both her PCP and her web content manager to discuss any potential need for future medication adjustments. She understands this plan and is agreeable with it. Return precautions provided otherwise nontoxic at discharge. Last Recorded V/S: Last Vital Signs Temp 36.4 C 03/30/20 19:15 Pulse 57 L 03/30/20 20:22 Resp 18 03/30/20 20:22 BP 162/60 H 03/30/20 20:22 Pulse Ox 98 03/30/20 20:22 - Orders/Labs/Meds Meds: Medications Discontinued Medications Generic Name Dose Route Start Last Admin Trade Name Freq PRN Reason Stop Dose Admin Acetaminophen 650 mg 03/30/20 19:18 03/30/20 19:30 Tylenol PO 03/30/20 19:19 650 mg NOW ONE Administration Clonidine HCl 0.1 mg 03/30/20 19:18 03/30/20 19:31 Catapres PO 03/30/20 19:19 0.1 mg ONETIME ONE Administration Labetalol HCl 100 mg 03/30/20 19:18 03/30/20 19:30 Normodyne PO 03/30/20 19:19 100 mg ONETIME ONE Administration Departure - Departure Time of Disposition: 20:33 Disposition: Home, Self-Care 01 Condition: Good Clinical Impression: Headache Hypertension Qualifiers: Hypertension type: unspecified Qualified Code(s): I10 - Essential (primary) hypertension Instructions: Hypertension, Adult Referrals: Leslee Liu MD [Primary Care Provider] - Forms: ED Department Discharge Additional Instructions: Follow-up with primary care doctor. Take all medications as previously prescribed. Return to the ER with any new or worsening symptoms. The following information is given to patients seen in the emergency department who are being discharged to home. This information is to outline your options for follow-up care. We provide all patients seen in our emergency department with a follow-up referral. The need for follow-up, as well as the timing and circumstances, are variable depending upon the specifics of your emergency department visit. If you don't have a primary care physician on staff, we will provide you with a referral. We always advise you to contact your personal physician following an emergency department visit to inform them of the circumstance of the visit and for follow-up with them and/or the need for any referrals to a consulting specialist. The emergency department will also refer you to a specialist when appropriate. This referral assures that you have the opportunity for follow-up care with a specialist. All of these measure are taken in an effort to provide you with optimal care, which includes your follow-up. Under all circumstances we always encourage you to contact your private physic britney who remains a resource for coordinating your care. When calling for follow- up care, please make the office aware that this follow-up is from your recent emergency room visit. If for any reason you are refused follow-up, please contact the [facility] Emergency Department at and asked to speak to the emergency department charge nurse. Sepsis Event Note (ED) - Evaluation Sepsis Screening Result: No Definite Risk - Focused Exam Vital Signs: Vital Signs Temp Pulse Pulse Resp BP BP Pulse Ox 03/30/20 20:22 57 L 18 162/60 H 98 03/30/20 19:31 200/86 H 03/30/20 19:30 61 200/86 H 03/30/20 19:25 168/66 H 03/30/20 19:15 36.4 C 69 18 200/86 H 94 L
[2020-03-30 20:29] VITALS: PULSE 57
[2020-03-30 20:48] VITALS: BP 148/56
== END 2020-03-30 20:42 | disposition home or self-care (01) ==
LOC: MW.ED 18:55
DX: I10 Essential (primary) hypertension (principal); Z88.5 Allergy status to narcotic agent; Z91.041 Radiographic dye allergy status; Z88.2 Allergy status to sulfonamides; Z88.8 Allergy status to other drugs, medicaments and biological substances; Z88.6 Allergy status to analgesic agent; I25.2 Old myocardial infarction; K21.9 Gastro-esophageal reflux disease without esophagitis; E11.9 Type 2 diabetes mellitus without complications; E66.9 Obesity, unspecified; Z79.84 Long term (current) use of oral hypoglycemic drugs; Z79.82 Long term (current) use of aspirin; Z79.899 Other long term (current) drug therapy; Z86.73 Personal history of transient ischemic attack (TIA), and cerebral infarction without residual deficits; Z90.49 Acquired absence of other specified parts of digestive tract; Z90.710 Acquired absence of both cervix and uterus; Z87.891 Personal history of nicotine dependence; Z68.23 Body mass index [BMI] 23.0-23.9, adult
CPT/HCPCS: 99283; A9270

== ENCOUNTER 2020-03-30 22:12 | Emergency (ER) | payer MEDICARE, OTHER ==
[2020-03-30] MEDS ORDERED: Sodium Chloride 0.9% 2.5 ML Syringe FLUSH PRN (22:22)
[2020-03-30] MEDS ORDERED: Sodium Chloride 0.9% 10 ML Syringe FLUSH PRN (22:22)
[2020-03-30] MEDS ORDERED: Labetalol 100 MG/20 ML MDV IVPUSH ONE (22:23)
[2020-03-30] MEDS ORDERED: Sodium Chloride 0.9% 500 ML IV SCH (22:30)
--- NOTE | 2020-03-30 23:00 | EDM.PDOC ---
ED HPI GENERAL MEDICAL PROBLEM - General Chief Complaint: General Stated Complaint: blood pressure Time Seen by Provider: 03/30/20 22:14 Source of Information: Reports: Patient History Limitations: Reports: No Limitations - History of Present Illness INITIAL COMMENTS - FREE TEXT/NARRATIVE: History of present illness: [Patient is 79-year-old female who was just seen here earlier in the emergency department less than a couple hours ago presenting with similar complaint. She initially presented with hypertension and headache. She was treated with oral medications and on reassessment her hypertension had significantly improved and her symptoms had resolved and she was subsequently discharged home. She presents back to the ED with rising blood pressure and a sensation of "chills" in the back of her head. She states that feels similar to how it did earlier today when she first came in but more tingly in the posterior aspect of her head. She denies blurry vision or focal neuro deficits. She again denies any chest pain, shortness of breath, or any other symptoms.] Review of systems: As per history of present illness and below otherwise all systems reviewed and n egative. Past medical history: As per history of present illness and as reviewed below otherwise noncontributory. Surgical history: As per history of present illness and as reviewed below otherwise noncontributory. Social history: No reported history of drug or alcohol abuse. Family history: As per history of present illness and as reviewed below otherwise noncontributory. Physical exam: General: Awake, alert, no acute distress, A&O X3. HEENT: Atraumatic, normocephalic, pupils reactive, negative for conjunctival pallor or scleral icterus, mucous membranes moist, throat clear, neck supple, nontender, trachea midline. Lungs: Clear to auscultation, breath sounds equal bilaterally, chest nontender. Heart: RRR, normal S1S2, no JVD. Abdomen: Soft, nondistended, nontender. Negative for masses or hepatosplenomegaly. Negative for costovertebral tenderness. Pelvis: Stable nontender. Genitourinary: Deferred. Rectal: Deferred. Extremities: Atraumatic, no edema, Neurovascular unremarkable. Neuro: Motor and sensory grossly intact throughout. Exam nonfocal. Diagnostics: [] Therapeutics: [] Impression: [] Plan: [] Definitive disposition and diagnosis as appropriate pending reevaluation and review of above. - Related Data Allergies Allergy/AdvReac Type Severity Reaction Status Date / Time codeine Allergy Hives Verified 03/30/20 22:29 Iodine and Iodide Containing Allergy Airway Verified 03/30/20 22:29 Produc Tightness red dye Allergy Airway Verified 03/30/20 22:29 Tightness sulfamethoxazole Allergy Hives Verified 03/30/20 22:29 [From Bactrim] trimethoprim [From Bactrim] Allergy Hives Verified 03/30/20 22:29 ornade Spansules Allergy Hives Uncoded 03/30/20 22:29 Home Meds: Home Meds Lisinopril [Prinivil] 20 mg PO DAILY 04/23/15 [History] Aspirin [Adult Low Dose Aspirin EC] 1 tab PO DAILY 12/03/15 [History] Glimepiride [Amaryl] 4 mg PO BID 12/03/15 [History] carvediloL [Carvedilol] 12.5 mg PO BID 12/03/15 [History] metFORMIN [Glucophage] 2 tab PO DAILY 08/01/17 [History] SitaGLIPtin [Januvia] 50 mg PO DAILY 01/18/19 [History] Furosemide [Lasix] 20 mg PO DAILY 04/27/19 [History] Esomeprazole Magnesium 20 mg PO DAILY 10/02/19 [History] Past Medical History - Past Health History Medical/Surgical History: Denies Medical/Surgical History HEENT History: Reports: Other (See Below) Other HEENT History: wears glasses, has upper denture Cardiovascular History: Reports: High Cholesterol, Hypertension, [place], Other (See Below) Other Cardiovascular History: NC in 2014- no stents, TIA in 2002- no residual Respiratory History: Reports: None Gastrointestinal History: Reports: GERD Genitourinary History: Reports: None 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: Musculoskeletal History: Reports: None Neurological History: Reports: TIA Other Neuro History: TIA- 2002, no residual Psychiatric History: Reports: None Endocrine/Metabolic History: Reports: Diabetes, Type II, Obesity/BMI 30+ Insulin Pump Model and Supervisor Home Economics: None Hematologic History: Reports: Anticoagulation Therapy Other Hematologic History: takes plavix Immunologic History: Reports: None Oncologic (Cancer) History: Reports: None Dermatologic History: Reports: None - Infectious Disease History Infectious Disease History: Reports: None - Past Surgical History Head Surgeries/Procedures: Reports: None HEENT Surgical History: Reports: None Cardiovascular Surgical History: Reports: None Respiratory Surgical History: Reports: None GI Surgical History: Reports: Cholecystectomy Female Surgical History: Reports: Hysterectomy, Other (See Below) Other Female Surgeries/Procedures: Anterior repair Endocrine Surgical History: Reports: None Neurological Surgical History: Reports: None Musculoskeletal Surgical History: Reports: None Oncologic Surgical History: Reports: None Dermatological Surgical History: Reports: None Social & Family History - Family History Family Medical History: Noncontributory - Tobacco Use Smoking Status *Q: Never Smoker Second Hand Smoke Exposure: No - Caffeine Use Caffeine Use: Reports: None - Recreational Drug Use Recreational Drug Use: No ED ROS GENERAL - Review of Systems Review Of Systems: Comprehensive ROS is negative, except as noted in HPI. ED EXAM, GENERAL - Physical Exam Exam: See Below (see h and p) Course - Vital Signs Text/Narrative:: Repeat blood pressure is better. Patient has a negative CT scan, negative lab work, reassuring work-up overall. She is asymptomatic at the time of discharge. I encouraged her to follow-up with her PCP in the outpatient setting. To take her medications as previously prescribed. And to discuss hypertension control with her PCP and go over her regimen with them. Return precautions again provided. Patient is comfortable this plan, well-appearing and stable at discharge. Last Recorded V/S: Last Vital Signs Temp 36.4 C 03/30/20 22:23 Pulse 55 L 03/30/20 23:57 Resp 18 03/30/20 23:57 BP 149/49 H 03/30/20 23:57 Pulse Ox 98 03/30/20 23:57 - Orders/Labs/Meds Orders: Active Orders 24 hr Category Date Time Status Sodium Chloride 0.9% [Normal Saline] 500 ml Med 03/30/20 22:30 Active IV .BOLUS Sodium Chloride 0.9% [Saline Flush] Med 03/30/20 22:22 Active 10 ml FLUSH ASDIRECTED PRN Sodium Chloride 0.9% [Saline Flush] Med 03/30/20 22:22 Active 2.5 ml FLUSH ASDIRECTED PRN Saline Lock Insert [OM.PC] Stat Oth 03/30/20 22:22 Ordered Medication Orders Sodium Chloride (Normal Saline) 500 mls @ 999 mls/hr IV .BOLUS PILAR Sodium Chloride (Saline Flush) 10 ml FLUSH ASDIRECTED PRN PRN Reason: Keep Vein Open Sodium Chloride (Saline Flush) 2.5 ml FLUSH ASDIRECTED PRN PRN Reason: Keep Vein Open Labs: Laboratory Tests 03/30/20 03/30/20 Range/Units 22:51 22:51 WBC 8.46 (4.0-11.0) K/uL RBC 3.54 L (4.30-5.90) M/uL Hgb 11.5 L (12.0-16.0) g/dL Hct 33.5 L (36.0-46.0) % MCV 94.6 (80.0-98.0) fL MCH 32.5 H (27.0-32.0) pg MCHC 34.3 (31.0-37.0) g/dL RDW Std Deviation 43.9 (28.0-62.0) fl RDW Coeff of Greg 13 (11.0-15.0) % Plt Count 240 (150-400) K/uL MPV 10.70 (7.40-12.00) fL Neut % (Auto) 50.6 (48.0-80.0) % Lymph % (Auto) 39.1 (16.0-40.0) % [place] % (Auto) 8.3 (0.0-15.0) % Eos % (Auto) 1.4 (0.0-7.0) % Baso % (Auto) 0.6 (0.0-1.5) % Neut # (Auto) 4.3 (1.4-5.7) K/uL Lymph # (Auto) 3.3 H (0.6-2.4) K/uL [place] # (Auto) 0.7 (0.0-0.8) K/uL Eos # (Auto) 0.1 (0.0-0.7) K/uL Baso # (Auto) 0.1 (0.0-0.1) K/uL Nucleated RBC % 0.0 /100WBC Nucleated RBCs # 0 K/uL Sodium 136 (136-145) mmol/L Potassium 3.9 (3.5-5.1) mmol/L Chloride 101 (98-107) mmol/L Carbon Dioxide 26.1 (21.0-32.0) mmol/L BUN 14 (7.0-18.0) mg/dL Creatinine 0.8 (0.6-1.0) mg/dL Est Cr Clr Drug Dosing 47.17 mL/min Estimated GFR (MDRD) > 60.0 ml/min Glucose 142 H (74-106) mg/dL Calcium 8.6 (8.5-10.1) mg/dL Total Bilirubin 0.6 (0.2-1.0) mg/dL AST 39 H (15-37) IU/L ALT 17 (14-63) IU/L Alkaline Phosphatase 62 (46-116) U/L Troponin I < 0.050 (0.000-0.056) ng/mL Total Protein 7.2 (6.4-8.2) g/dL Albumin 3.6 (3.4-5.0) g/dL Globulin 3.6 (2.6-4.0) g/dL Albumin/Globulin Ratio 1.0 (0.9-1.6) Meds: Medications Generic Name Dose Route Start Last Admin Trade Name Freq PRN Reason Stop Dose Admin Sodium Chloride 500 mls @ 999 mls/hr 03/30/20 22:30 Normal Saline IV .BOLUS PILAR Sodium Chloride 10 ml 03/30/20 22:22 Saline Flush FLUSH ASDIRECTED PRN Keep Vein Open Sodium Chloride 2.5 ml 03/30/20 22:22 Saline Flush FLUSH ASDIRECTED PRN Keep Vein Open Discontinued Medications Generic Name Dose Route Start Last Admin Trade Name Freq PRN Reason Stop Dose Admin Labetalol HCl 20 mg 03/30/20 22:23 03/30/20 23:17 Normodyne IVPUSH 03/30/20 22:24 20 mg ONETIME ONE Administration Protocol Departure - Departure Time of Disposition: 23:59 Disposition: Home, Self-Care 01 Condition: Good Clinical Impression: HTN (hypertension) Qualifiers: Hypertension type: unspecified Qualified Code(s): I10 - Essential (primary) hypertension - Discharge Information Instructions: Hypertension, Adult, [id number] Referrals: Leslee Liu MD [Primary Care Provider] - Forms: ED Department Discharge Additional Instructions: Follow-up with primary care doctor. Take medications as previously prescribed. Return to the ER with any new or worsening symptoms. The following information is given to patients seen in the emergency department who are being discharged to home. This information is to outline your options for follow-up care. We provide all patients seen in our emergency department with a follow-up referral. The need for follow-up, as well as the timing and circumstances, are variable depending upon the specifics of your emergency department visit. If you don't have a primary care physician on staff, we will provide you with a referral. We always advise you to contact your personal physician following an emergency department visit to inform them of the circumstance of the visit and for follow-up with them and/or the need for any referrals to a consulting specialist. The emergency department will also refer you to a specialist when appropriate. This referral assures that you have the opportunity for follow-up care with a specialist. All of these measure are taken in an effort to provide you with optimal care, which includes your follow-up. Under all circumstances we always encourage you to contact your private physician who remains a resource for coordinating your care. When calling for follow-up care, please make the office aware that this follow-up is from your recent emergency room visit. If for any reason you are refused follow-up, please contact the [facility] Emergency Department at and asked to speak to the emergency department charge nurse. Sepsis Event Note (ED) - Evaluation Sepsis Screening Result: No Definite Risk - Focused Exam Vital Signs: Vital Signs Temp Pulse Resp BP Pulse Ox 03/30/20 23:57 55 L 18 149/49 H 98 03/30/20 23:36 160/52 H 03/30/20 23:21 169/61 H 03/30/20 23:19 60 172/62 H 03/30/20 22:23 36.4 C 59 L 18 121/70 98 - My Orders Last 24 Hours: My Active Orders 03/30/20 22:22 Sodium Chloride 0.9% [Saline Flush] 10 ml FLUSH ASDIRECTED PRN Sodium Chloride 0.9% [Saline Flush] 2.5 ml FLUSH ASDIRECTED PRN Saline Lock Insert [OM.PC] Stat 03/30/20 22:30 Sodium Chloride 0.9% [Normal Saline] 500 ml IV .BOLUS - Assessment/Plan Last 24 Hours: My Active Orders 03/30/20 22:22 Sodium Chloride 0.9% [Saline Flush] 10 ml FLUSH ASDIRECTED PRN Sodium Chloride 0.9% [Saline Flush] 2.5 ml FLUSH ASDIRECTED PRN Saline Lock Insert [OM.PC] Stat 03/30/20 22:30 Sodium Chloride 0.9% [Normal Saline] 500 ml IV .BOLUS
[2020-03-30 23:25] LABS: BLOOD UREA NITROGEN,BUN 14 mg/dL (7.0-18.0); CARBON DIOXIDE,CO2 26.1 mmol/L (21.0-32.0); CHLORIDE,CL 101 mmol/L (98-107); GLUCOSE RANDOM 142 mg/dL (74-106); POTASSIUM,K 3.9 mmol/L (3.5-5.1); SODIUM,NA 136 mmol/L (136-145)
--- NOTE | 2020-03-30 23:39 | CT ---
INDICATION: Hypertension. Recurrent headache. TECHNIQUE: CT head without contrast. COMPARISON: Brain MRI May 19, 2019. FINDINGS: CSF spaces: Within normal limits for age. Brain parenchyma and extra-axial spaces: The estrella-white differentiation is normal. No sign of mass, hemorrhage, or midline shift. No extra-axial fluid collection. Skull base and calvarium: The visualized paranasal sinuses and mastoid air cells demonstrate no acute or significant findings. The visualized orbits are grossly unremarkable. No skull fractures. IMPRESSION: Unremarkable noncontrast head CT. Please note that all CT scans at this facility use dose modulation, iterative reconstruction, and/or weight-based dosing when appropriate to reduce radiation dose to as low as reasonably achievable. Dictated by Ko Oakes MD @ Mar 30 2020 11:35PM Signed by Dr. Ko Oakes @ Mar 30 2020 11:38PM
--- NOTE | 2020-03-30 23:56 | CR ---
INDICATION: Hypertension, headache TECHNIQUE: Frontal view of the chest. COMPARISON: None FINDINGS: The lungs are clear. There is no sizable pleural effusion or pneumothorax. The cardiomediastinal silhouette is slightly prominent. The visualized osseous structures are unremarkable. IMPRESSION: No acute intrathoracic process. Dictated by Dalton Portillo MD @ Mar 30 2020 11:54PM Signed by Dr. aDlton Portillo @ Mar 30 2020 11:56PM
[2020-03-30 23:57] VITALS: BP 149/49; PULSE 55
== END 2020-03-31 00:05 | disposition home or self-care (01) ==
LOC: MW.ED 22:12
DX: I10 Essential (primary) hypertension (principal); K21.9 Gastro-esophageal reflux disease without esophagitis; E11.9 Type 2 diabetes mellitus without complications; E66.9 Obesity, unspecified; Z68.44 Body mass index [BMI] 60.0-69.9, adult; Z86.73 Personal history of transient ischemic attack (TIA), and cerebral infarction without residual deficits; Z79.01 Long term (current) use of anticoagulants; Z79.02 Long term (current) use of antithrombotics/antiplatelets; Z79.82 Long term (current) use of aspirin; Z79.899 Other long term (current) drug therapy; Z88.5 Allergy status to narcotic agent; Z88.2 Allergy status to sulfonamides; Z88.1 Allergy status to other antibiotic agents; Z91.041 Radiographic dye allergy status; Z88.8 Allergy status to other drugs, medicaments and biological substances; Z91.048 Other nonmedicinal substance allergy status
CPT/HCPCS: 36415; 70450; 71045; 80053; 84484; 85025; 96374; 99284; J3490; 99283

== ENCOUNTER 2020-04-01 22:35 | Emergency (ER) | payer MEDICARE, OTHER ==
--- NOTE | 2020-04-01 23:27 | EDM.PDOC ---
ED HPI GENERAL MEDICAL PROBLEM - General Chief Complaint: General Stated Complaint: elevated bp Time Seen by Provider: 04/01/20 22:35 Source of Information: Reports: Patient, Old Records History Limitations: Reports: No Limitations - History of Present Illness INITIAL COMMENTS - FREE TEXT/NARRATIVE: [age]-year-old female the past medical history of hypertension, coronary artery di sease, diabetes mellitus, hyperlipidemia presenting with complaints of high blood pressure, neck pain, and headache. Patient was seen in our emergency department twice in the past 2 days for complaints of headache and high blood pressure. This evening she presents to the emergency department complaining of blood pressure readings above 200 systolic along with complaints of chronic neck pain and headache. She is due to have a surgical procedure in [facility] later this morning to treat her chronic headache and neck pain. She states that she frequently has bilateral neck pain that involves the head and that her pattern of pain tonight is typical for her. She has had these symptoms on and off for months. She states that her headache is not any different from usual. She denies any visual disturbance, slurred speech, facial droop, difficulty speaking or swallowing, facial or extremity numbness or weakness, chest pain, shortness of breath, lower extremity swelling, gait changes, or any other new symptoms tonight. ROS: A 10-point review of systems was negative, except as noted in the HPI (or in the ROS section of this note). Past medical history: Reviewed, no additional pertinent history. Surgical history: Reviewed in system, no additional pertinent history. Social history: Reviewed in system, no additional pertinent history. Family history: Reviewed in system, no additional pertinent history. PHYSICAL EXAM Vital signs reviewed. Nursing notes reviewed. Constitutional: Awake, alert, non-distressed. Head: Normocephalic, atraumatic. Eyes: EOMI, conjunctiva normal, no discharge, no scleral icterus. Pupils 3 mm bilaterally. Ears, Nose, Throat: External ears and nose normal, moist oral mucosa. Cardiovascular: 2+ radial pulse, capillary refill less than 2 seconds. No carotid bruits bilaterally. Pulmonary: normal work of breathing, no accessory muscle use. Abdomen/GI: Soft, nontender, nondistended, no guarding or rigidity, no masses. Musculoskeletal: No deformities. Integumentary: Appropriate color for ethnicity, warm, dry, no pallor or jaundice, no rash. Neurologic: Awake, alert, and oriented x3. Cranial nerves II through XII intact. No facial droop or dysarthria. No temporal artery tenderness. Supple neck with normal range of motion. No pronator drift. Normal [id number] and rqdb-wy-bayk. No dysdiadochokinesia. 5/5 strength in all extremities. Sensation intact to light touch x4. Normal gait. Normal visual alford. Able to sit, stand, and ambulate without assistance. Psychiatric: Appropriate mood and affect, normal thought process. - Related Data Allergies Allergy/AdvReac Type Severity Reaction Status Date / Time codeine Allergy Hives Verified 03/30/20 22:29 Iodine and Iodide Containing Allergy Airway Verified 03/30/20 22:29 Produc Tightness red dye Allergy Airway Verified 03/30/20 22:29 Tightness sulfamethoxazole Allergy Hives Verified 03/30/20 22:29 [From Bactrim] trimethoprim [From Bactrim] Allergy Hives Verified 03/30/20 22:29 ornade Spansules Allergy Hives Uncoded 03/30/20 22:29 Home Meds: Home Meds Lisinopril [Prinivil] 40 mg PO BID 04/23/15 [History] Aspirin [Adult Low Dose Aspirin EC] 1 tab PO DAILY 12/03/15 [History] carvediloL [Carvedilol] 12.5 mg PO DAILY 12/03/15 [History] metFORMIN [Glucophage] 2 tab PO DAILY 08/01/17 [History] SitaGLIPtin [Januvia] 50 mg PO DAILY 01/18/19 [History] Furosemide [Lasix] 20 mg PO DAILY 04/27/19 [History] Esomeprazole Magnesium 20 mg PO DAILY 10/02/19 [History] LORazepam [Lorazepam] 04/01/20 [History] atorvaSTATin [Lipitor] 5 mg PO DAILY 04/01/20 [History] carvediloL [Carvedilol] 15 mg PO DAILY 04/01/20 [History] Past Medical History - Past Health History Medical/Surgical History: Denies Medical/Surgical History HEENT History: Reports: Other (See Below) Other HEENT History: wears glasses, has upper denture Cardiovascular History: Reports: High Cholesterol, Hypertension, NC, Other (See Below) Other Cardiovascular History: NC in 2014- no stents, TIA in 2002- no residual Respiratory History: Reports: None Gastrointestinal History: Reports: GERD Genitourinary History: Reports: None TRAFFIC 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 MANAGER 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: Reports: Musculoskeletal History: Reports: None Neurological History: Reports: Headaches, Chronic, TIA Other Neuro History: TIA- 2002, no residual Psychiatric History: Reports: Anxiety Endocrine/Metabolic History: Reports: Diabetes, Type II, Obesity/BMI 30+ Insulin Pump Model and Coder: None Hematologic History: Reports: Anticoagulation Therapy Other Hematologic History: takes plavix Immunologic History: Reports: None Oncologic (Cancer) History: Reports: None Dermatologic History: Reports: None - Infectious Disease History Infectious Disease History: Reports: None - Past Surgical History Head Surgeries/Procedures: Reports: None HEENT Surgical History: Reports: None Cardiovascular Surgical History: Reports: None Respiratory Surgical History: Reports: None GI Surgical History: Reports: Cholecystectomy Female Surgical History: Reports: Hysterectomy, Other (See Below) Other Female Surgeries/Procedures: Anterior repair Endocrine Surgical History: Reports: None Neurological Surgical History: Reports: None Musculoskeletal Surgical History: Reports: None Oncologic Surgical History: Reports: None Dermatological Surgical History: Reports: None Social & Family History - Family History Family Medical History: Noncontributory - Tobacco Use Smoking Status *Q: Former Smoker Used Tobacco, but Quit: No Month/Year Tobacco Last Used: 1969 - Caffeine Use Caffeine Use: Reports: Tea - Recreational Drug Use Recreational Drug Use: No ED ROS GENERAL - Review of Systems Review Of Systems: See Below ED EXAM, GENERAL - Physical Exam Exam: See Below Course - Vital Signs Text/Narrative:: Differential diagnosis includes but is not limited to: Asymptomatic hypertension, hypertensive emergency, CVA, TIA, intracranial hemorrhage, etc. Presentation seems consistent with asymptomatic hypertension. Patient has known chronic longstanding neck pain and headache and states that her pain tonight is typical of her chronic pain pattern. She denies any change in character or location of her headache. She is not on any anticoagulant medications. No history of head trauma. She does not have any symptoms of hypertensive emergency such as chest discomfort, shortness of breath, extremity swelling, visual disturbance, stroke symptoms, new severe atypical headache, etc. There is no emergency indication to lower her blood pressure in the emergency department setting. She is already on a multimodal antihypertensive medication regimen that was prescribed by her liner reroll tender. I did discuss at length with the patient that I did not feel was necessary for us to adjust her medication regimen and that this is best managed by her liner reroll tender. We did discuss multiple times warning signs for hypertensive emergency such as chest pain, shortness of breath, stroke symptoms, new and severe and atypical headache, etc. She is not having any of those symptoms right now. She is neurologically intact and comprehensive neurologic examination was unremarkable. I do not see an indication for lab work at this point as she essentially has asymptomatic hypertension. Patient is stable to discharge home with outpatient primary care and cardiology clinic follow-up to reevaluate her antihypertensive medication regimen. We did discuss that lowering her blood pressure in the emergency department setting risks lightheadedness, syncope with resultant injury, or watershed stroke. We did discuss symptoms that would necessitate her return to the emergency department immediately, specifically symptoms of hypertensive emergency. She voiced understanding of the symptoms and has no further questions or concerns at this point. Plan: Patient is stable to discharge home with outpatient primary care and cardiology clinic follow-up. Strict emergency department return precautions were provided, patient indicated understanding. All questions were answered prior to departure. Discharged in good condition. Last Recorded V/S: Last Vital Signs Temp 36.2 C 04/01/20 22:44 Pulse 65 04/01/20 22:44 Resp 20 04/01/20 22:44 BP 201/67 H 04/01/20 22:44 Pulse Ox 96 04/01/20 22:44 Departure - Departure Time of Disposition: 23:25 Disposition: Home, Self-Care 01 Condition: Good Clinical Impression: Asymptomatic hypertension - Discharge Information *PRESCRIPTION DRUG MONITORING PROGRAM REVIEWED*: Not Applicable *COPY OF PRESCRIPTION DRUG MONITORING REPORT IN PATIENT ROSSANA: Not Applicable Instructions: Hypertension, Adult Referrals: Kenyatta Ceja MD [Physician] - 1 Week (For follow-up of your blood pressure medications.) Forms: ED Department Discharge Additional Instructions: You were seen in the emergency department for high blood pressure and headache. At this point your high blood pressure does not seem dangerous as long as you are not having any new severe headache, visual problems, slurred speech or stroke symptoms, chest pain, shortness of breath, etc. I would advise you to follow closely with your liner reroll tender in the next few days to reevaluate your blood pressure medication regimen. There is not an emergent need to lower your blood pressure here in the emergency department tonight, doing so too quickly can be dangerous and can cause you to faint, injure yourself, or have a stroke. Continue taking your blood pressure medications as prescribed by your primary clinic and your liner reroll tender. Please get them a call in the next 1 to 2 days to let them know what your blood pressures have been running to see if they want to adjust your medications or see you at a clinic appointment. Warning signs to come back to the ER include chest pain, trouble breathing, visual problems, new severe unusual headache, slurred speech, facial or extremity numbness or weakness, trouble walking, or any other new or concerning symptoms. Please return the emergency department immediately if your symptoms worsen or if you feel worse. Thank you for choosing the [facility] department in [place] for your medical needs today. It was a pleasure caring for you. The following information is given to patients seen in the emergency department who are being discharged. This information is to outline your options for follow-up care. We provide all patients seen in our emergency department with a follow-up referral. The need for follow-up, as well as the timing and circumstances, are variable depending upon the specifics of your emergency department visit. If you don't have a primary care physician on staff, we will provide you with a referral. We always advise you to contact your personal physician following an emergency department visit to inform them of the circumstance of the visit and for follow-up with them and/or the need for any referrals to a consulting specialist. The emergency department will also refer you to a specialist when appropriate. This referral assures that you have the opportunity for follow-up care with a specialist. All of these measure are taken in an effort to provide you with optimal care, which includes your follow-up. Under all circumstances we always encourage you to contact your private physician who remains a resource for coordinating your care. When calling for follow-up care, please make the office aware that this follow-up is from your recent emergency room visit. If for any reason you are refused follow-up, please contact the [facility] Emergency Department at and asked to speak to the emergency department charge nurse. If you do not have a primary care physician that is caring for you, you can contact these clinics below to set up an appointment to establish care: [facility] [address] [place] [id number] [facility] [address] [place] [id number] Sepsis Event Note (ED) - Evaluation Sepsis Screening Result: No Definite Risk - Focused Exam Vital Signs: Vital Signs Temp Pulse Resp BP Pulse Ox 04/01/20 22:44 36.2 C 65 20 201/67 H 96
[2020-04-01 23:46] VITALS: BP 198/77; PULSE 59
== END 2020-04-01 23:33 | disposition home or self-care (01) ==
LOC: MW.ED 22:35
DX: I10 Essential (primary) hypertension (principal); K21.9 Gastro-esophageal reflux disease without esophagitis; E78.00 Pure hypercholesterolemia, unspecified; I25.2 Old myocardial infarction; E11.9 Type 2 diabetes mellitus without complications; F41.9 Anxiety disorder, unspecified; E66.9 Obesity, unspecified; Z68.28 Body mass index [BMI] 28.0-28.9, adult; Z87.891 Personal history of nicotine dependence; Z88.5 Allergy status to narcotic agent; Z91.09 Other allergy status, other than to drugs and biological substances; Z91.041 Radiographic dye allergy status; Z88.2 Allergy status to sulfonamides; Z79.82 Long term (current) use of aspirin; Z79.84 Long term (current) use of oral hypoglycemic drugs; Z79.899 Other long term (current) drug therapy
CPT/HCPCS: 99282; 99283

== ENCOUNTER 2020-05-17 19:52 | Emergency (ER) | payer MEDICARE, OTHER ==
[2020-05-17 21:29] LABS: BLOOD UREA NITROGEN,BUN 19 mg/dL (7.0-18.0); CARBON DIOXIDE,CO2 27.4 mmol/L (21.0-32.0); CHLORIDE,CL 104 mmol/L (98-107); GLUCOSE RANDOM 111 mg/dL (74-106); POTASSIUM,K 3.2 mmol/L (3.5-5.1); SODIUM,NA 142 mmol/L (136-145)
[2020-05-17 22:26] VITALS: BP 185/89; PULSE 76
--- NOTE | 2020-05-17 23:07 | CR ---
INDICATION: Chest Pain TECHNIQUE: Chest 1 view. COMPARISON: 03/30/2020 FINDINGS: The cardiomediastinal silhouette is stable. No pneumothorax. No pleural effusion. Low lung volumes. No consolidation or overt edema. No acute osseous abnormality. IMPRESSION: No acute pulmonary process. Dictated by Yaw Weller MD @ May 17 2020 11:04PM Signed by Dr. Yaw Weller @ May 17 2020 11:06PM
--- NOTE | 2020-05-17 23:12 | EDM.PDOC ---
ED HPI GENERAL MEDICAL PROBLEM - General Chief Complaint: General Stated Complaint: PAIN IN LT BREAST Time Seen by Provider: 05/17/20 21:35 - History of Present Illness INITIAL COMMENTS - FREE TEXT/NARRATIVE: CHIEF COMPLAINT(S): Chest pain HISTORY OF PRESENT ILLNESS: This is a 79-year-old woman with a past medical history of diabetes mellitus, CAD who comes to the emergency department with a chief complaint of chest pain. The patient states that over the last day or so she has been experiencing chest pain on the left side of her chest. She states that lifting her boob relieves it. She states that she has not had any a ssociated diaphoresis, nausea, vomiting, or shortness of breath. She denies any rash or swelling. She denies any fever cough. She describes the pain as sharp. She states that the pain did not radiate anywhere. She states that there is no aggravating symptoms except for when her breast is not elevated. She denies any other symptoms REVIEW OF SYSTEMS: Constitutional: Denies fever, chills. Eyes: Denies eye pain Ears, Nose, Mouth, & Throat: Denies earache Cardiovascular: Positive for left-sided chest pain Respiratory: Denies shortness of breath Gastrointestinal: Denies Nausea, vomiting, diarrhea, hematochezia. Genitourinary: Denies hematuria Skin:Denies a rash Neurological: Denies blurred vision Psychiatric: Denies depression PAST MEDICAL HISTORY: As per history of present illness and as reviewed below otherwise noncontributory. SURGICAL HISTORY: As per history of present illness and as reviewed below otherwise noncontributory. SOCIAL HISTORY: As per history of present illness and as reviewed below otherwise noncontributory. FAMILY HISTORY: As per history of present illness and as reviewed below otherwise noncontributory. EXAMINATION OF ORGAN SYSTEMS/BODY AREAS: Constitutional: Blood pressure is 168/77, heart rate 66, respiratory rate 18 with an oxygen saturation 94% on room air. Temperature 35 point General: Overall well-appearing woman in no acute distress Psychiatric: Appropriate mood and affect. Eyes: No scleral icterus or conjunctival erythema ENMT: Moist mucous membranes. No pharyngeal erythema Breast: There is no tenderness to palpation along the breast. There is no abrasions. No abnormalities noted. Cardiovascular: Regular, rate, and rythym. No gallops, murmurs, or rubs. Bilateral upper extremity pulses symmetric and intact. No peripheral edema. No JVD. Respiratory: Lungs clear to auscultation bilaterally. No wheezes, rales, or rhonchi. Gastrointestinal: Soft, non-tender, non-distended. Normoactive bowel sounds Genitourinary: No suprapubic tenderness Musculoskeletal: Normal range of motion. Skin: No lesions or abrasions. Neurological: Alert, GCS 15 MEDICAL DECISION MAKING AND COURSE IN THE ED WITH INTERPRETATION/REVIEW OF D IAGNOSTIC STUDIES: This is a 79-year-old woman with a past medical history of CAD who comes to the emergency department with left-sided chest pain who has normal vital signs which is atypical. I do suspect musculoskeletal pain however given her history will obtain an EKG and cardiac work-up. The patient is currently asymptomatic and does not have any chest pain therefore no pain medication will be administered. Twelve-lead EKG interpreted by myself. Normal sinus rhythm at a rate of 63beats per minute. left axis. AR interval is 202ms. QRS duration is 103ms. ST segments are normal without elevations or depressions. There is T wave inversions in leads II and III with an incomplete right bundle branch block. Hypertrophy not noted. No changes demonstrated from prior EKG dated 04/27/2019. Interpretation: Sinus rhythm with nonspecific T wave inversions and incomplete right bundle branch block Laboratory: CBC is unremarkable. BMP reveals hypokalemia otherwise unremarkable. Magnesium is 1.1. Troponin is negative. The radiological images were viewed by myself along with reading the report from the radiologist. Chest x-ray does not reveal any acute cardiopulmonary process. After labs and imaging I did discuss results with the patient. At this time I do believe her pain is likely musculoskeletal in nature. She is to follow-up with her primary care physician. The patient does have low magnesium. I discussed [id number] supplementation. There is no EKG evidence of abnormalities for hypomagnesemia. She was amenable discharge at this time and had no further questions. The patient will follow-up with cardiology DISPOSITION: The patient was discharged home in stable condition. The patient will follow up with PCP and cardiology within 1 week CONDITION: Fair PROCEDURES: None FINAL IMPRESSION(S)/DIAGNOSES: 1. Acute left-sided atypical chest pain, resolved Francisco Franco M.D. left chest Pain Score (Numeric/FACES): 5 - Related Data Allergies Allergy/AdvReac Type Severity Reaction Status Date / Time codeine Allergy Hives Verified 05/17/20 20:08 Iodine and Iodide Containing Allergy Airway Verified 05/17/20 20:08 Produc Tightness red dye Allergy Airway Verified 05/17/20 20:08 Tightness sulfamethoxazole Allergy Hives Verified 05/17/20 20:08 [From Bactrim] trimethoprim [From Bactrim] Allergy Hives Verified 05/17/20 20:08 ornade Spansules Allergy Hives Uncoded 05/17/20 20:08 Home Meds: Home Meds Lisinopril [Prinivil] 40 mg PO BID 04/23/15 [History] Aspirin [Adult Low Dose Aspirin EC] 1 tab PO DAILY 12/03/15 [History] carvediloL [Carvedilol] 12.5 mg PO BEDTIME 12/03/15 [History] metFORMIN [Glucophage] 2 tab PO DAILY 08/01/17 [History] SitaGLIPtin [Januvia] 50 mg PO DAILY 01/18/19 [History] Furosemide [Lasix] 20 mg PO DAILY 04/27/19 [History] Esomeprazole Magnesium 20 mg PO DAILY 10/02/19 [History] LORazepam [Lorazepam] 0.25 mg PO BEDTIME 04/01/20 [History] atorvaSTATin [Lipitor] 5 mg PO DAILY 04/01/20 [History] carvediloL [Carvedilol] 2 tab PO DAILY 04/01/20 [History] atorvaSTATin [Lipitor] 5 mg PO DAILY 05/17/20 [History] Past Medical History - Past Health History Medical/Surgical History: Denies Medical/Surgical History HEENT History: Reports: Other (See Below) Other HEENT History: wears glasses, has upper denture Cardiovascular History: Reports: High Cholesterol, Hypertension, PR, Other (See Below) Other Cardiovascular History: PR in 2014- no stents, TIA in 2002- no residual Respiratory History: Reports: None Gastrointestinal History: Reports: GERD Genitourinary History: Reports: None 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: Musculoskeletal History: Reports: None Neurological History: Reports: Headaches, Chronic, TIA Other Neuro History: TIA- 2002, no residual Psychiatric History: Reports: Anxiety Endocrine/Metabolic History: Reports: Diabetes, Type II, Obesity/BMI 30+ Insulin Pump Model and Comic Book Designer: None Hematologic History: Reports: Anticoagulation Therapy Other Hematologic History: takes plavix Immunologic History: Reports: None Oncologic (Cancer) History: Reports: None Dermatologic History: Reports: None - Infectious Disease History Infectious Disease History: Reports: None - Past Surgical History Head Surgeries/Procedures: Reports: None HEENT Surgical History: Reports: None Cardiovascular Surgical History: Reports: None Respiratory Surgical History: Reports: None GI Surgical History: Reports: Cholecystectomy Female Surgical History: Reports: Hysterectomy, Other (See Below) Other Female Surgeries/Procedures: Anterior repair Endocrine Surgical History: Reports: None Neurological Surgical History: Reports: None Musculoskeletal Surgical History: Reports: None Oncologic Surgical History: Reports: None Dermatological Surgical History: Reports: None Social & Family History - Family History Family Medical History: Noncontributory - Tobacco Use Smoking Status *Q: Never Smoker - Caffeine Use Caffeine Use: Reports: Tea - Recreational Drug Use Recreational Drug Use: No ED ROS GENERAL - Review of Systems Review Of Systems: See Below ED EXAM, GENERAL - Physical Exam Exam: See Below Course - Vital Signs Last Recorded V/S: Last Vital Signs Temp 36.4 C 05/17/20 22:25 Pulse 76 05/17/20 22:25 Resp 18 05/17/20 22:25 BP 185/89 H 05/17/20 22:25 Pulse Ox 96 05/17/20 22:25 - Orders/Labs/Meds Labs: Laboratory Tests 05/17/20 05/17/20 05/17/20 Range/Units 20:52 20:52 20:52 WBC 8.66 (4.0-11.0) K/uL RBC 3.82 L (4.30-5.90) M/uL Hgb 12.1 (12.0-16.0) g/dL Hct 36.1 (36.0-46.0) % MCV 94.5 (80.0-98.0) fL MCH 31.7 (27.0-32.0) pg MCHC 33.5 (31.0-37.0) g/dL RDW Std Deviation 41.7 (28.0-62.0) fl RDW Coeff of Greg 12 (11.0-15.0) % Plt Count 203 (150-400) K/uL MPV 9.80 (7.40-12.00) fL Neut % (Auto) 50.0 (48.0-80.0) % Lymph % (Auto) 40.5 H (16.0-40.0) % [place] % (Auto) 7.3 (0.0-15.0) % Eos % (Auto) 1.6 (0.0-7.0) % Baso % (Auto) 0.6 (0.0-1.5) % Neut # (Auto) 4.3 (1.4-5.7) K/uL Lymph # (Auto) 3.5 H (0.6-2.4) K/uL [place] # (Auto) 0.6 (0.0-0.8) K/uL Eos # (Auto) 0.1 (0.0-0.7) K/uL Baso # (Auto) 0.1 (0.0-0.1) K/uL Nucleated RBC % 0.0 /100WBC Nucleated RBCs # 0 K/uL INR 1.17 Sodium 142 (136-145) mmol/L Potassium 3.2 L (3.5-5.1) mmol/L Chloride 104 (98-107) mmol/L Carbon Dioxide 27.4 (21.0-32.0) mmol/L BUN 19 H (7.0-18.0) mg/dL Creatinine 1.0 (0.6-1.0) mg/dL Est Cr Clr Drug Dosing 37.73 mL/min Estimated GFR (MDRD) 53.5 ml/min Glucose 111 H (74-106) mg/dL Calcium 8.8 (8.5-10.1) mg/dL Magnesium 1.1 L (1.8-2.4) mg/dL Troponin I < 0.050 (0.000-0.056) ng/mL Blood Type Antibody Screen 05/17/20 Range/Units 20:52 WBC (4.0-11.0) K/uL RBC (4.30-5.90) M/uL Hgb (12.0-16.0) g/dL Hct (36.0-46.0) % MCV (80.0-98.0) fL MCH (27.0-32.0) pg MCHC (31.0-37.0) g/dL RDW Std Deviation (28.0-62.0) fl RDW Coeff of Greg (11.0-15.0) % Plt Count (150-400) K/uL MPV (7.40-12.00) fL Neut % (Auto) (48.0-80.0) % Lymph % (Auto) (16.0-40.0) % [place] % (Auto) (0.0-15.0) % Eos % (Auto) (0.0-7.0) % Baso % (Auto) (0.0-1.5) % Neut # (Auto) (1.4-5.7) K/uL Lymph # (Auto) (0.6-2.4) K/uL [place] # (Auto) (0.0-0.8) K/uL Eos # (Auto) (0.0-0.7) K/uL Baso # (Auto) (0.0-0.1) K/uL Nucleated RBC % /100WBC Nucleated RBCs # K/uL INR Sodium (136-145) mmol/L Potassium (3.5-5.1) mmol/L Chloride (98-107) mmol/L Carbon Dioxide (21.0-32.0) mmol/L BUN (7.0-18.0) mg/dL Creatinine (0.6-1.0) mg/dL Est Cr Clr Drug Dosing mL/min Estimated GFR (MDRD) ml/min Glucose (74-106) mg/dL Calcium (8.5-10.1) mg/dL Magnesium (1.8-2.4) mg/dL Troponin I (0.000-0.056) ng/mL Blood Type A POSITIVE Antibody Screen NEGATIVE Departure - Departure Time of Disposition: 23:11 Disposition: Home, Self-Care 01 Condition: Fair Clinical Impression: Panic attack - Discharge Information *PRESCRIPTION DRUG MONITORING PROGRAM REVIEWED*: No *COPY OF PRESCRIPTION DRUG MONITORING REPORT IN PATIENT ROSSANA: No Instructions: Panic Attack, [id number] Referrals: Leslee Liu MD [Primary Care Provider] - Forms: ED Department Discharge Additional Instructions: The patient is informed of any results of their evaluation and diagnostic workup and all questions are answered. They are given discharge instructions and return precautions. The patient is stable for discharge. The patient states they understand and agree with the plan and that they will return if their symptoms get worse or if they have any new concerns. The following information is given to patients seen in the emergency department who are being discharged to home. This information is to outline your options for follow-up care. We provide all patients seen in our emergency department with a follow-up referral. The need for follow-up, as well as the timing and circumstances, are variable depending upon the specifics of your emergency department visit. If you don't have a primary care physician on staff, we will provide you with a referral. We always advise you to contact your personal physician following an emergency department visit to inform them of the circumstance of the visit and for follow-up with them and/or the need for any referrals to a consulting specialist. The emergency department will also refer you to a specialist when appropriate. This referral assures that you have the opportunity for follow-up care with a specialist. All of these measure are taken in an effort to provide you with optimal care, which includes your follow-up. Under all circumstances we always encourage you to contact your private physician who remains a resource for coordinating your care. When calling for follow-up care, please make the office aware that this follow-up is from your recent emergency room visit. If for any reason you are refused follow-up, please contact the [facility] Emergency Department at and asked to speak to the emergency department charge nurse. Please follow-up with Dr. Park as needed for continued monitoring of your heart. In addition please follow-up with your primary care physician regarding anxiety attacks. She is to return for any worsening symptoms. Sepsis Event Note (ED) - Evaluation Sepsis Screening Result: No Definite Risk - Focused Exam Vital Signs: Vital Signs Temp Pulse Resp BP Pulse Ox 05/17/20 22:25 36.4 C 76 18 185/89 H 96 05/17/20 20:04 35.9 C L 66 18 168/77 H 94 L
== END 2020-05-17 23:22 | disposition home or self-care (01) ==
LOC: MW.ED 19:52
DX: F41.0 Panic disorder [episodic paroxysmal anxiety] (principal); I10 Essential (primary) hypertension; E78.00 Pure hypercholesterolemia, unspecified; I25.2 Old myocardial infarction; K21.9 Gastro-esophageal reflux disease without esophagitis; F41.9 Anxiety disorder, unspecified; E11.9 Type 2 diabetes mellitus without complications; I25.10 Atherosclerotic heart disease of native coronary artery without angina pectoris; E66.9 Obesity, unspecified; Z68.27 Body mass index [BMI] 27.0-27.9, adult; Z79.01 Long term (current) use of anticoagulants; Z79.02 Long term (current) use of antithrombotics/antiplatelets; Z90.710 Acquired absence of both cervix and uterus; Z90.49 Acquired absence of other specified parts of digestive tract; Z88.5 Allergy status to narcotic agent; Z91.041 Radiographic dye allergy status; Z88.2 Allergy status to sulfonamides; Z88.1 Allergy status to other antibiotic agents; Z91.048 Other nonmedicinal substance allergy status; Z79.82 Long term (current) use of aspirin; Z79.899 Other long term (current) drug therapy; Z79.84 Long term (current) use of oral hypoglycemic drugs
CPT/HCPCS: 36415; 71045; 71045-26; 80048; 83735; 84484; 85025; 85610; 86850; 86900; 86901; 93005; 93010; 99283; 99285-25

== ENCOUNTER 2020-08-31 17:30 | Emergency (ER) | payer MEDICARE, OTHER ==
[2020-08-31] MEDS ORDERED: hydrALAZINE 10 MG Tab PO ONE (18:30)
--- NOTE | 2020-08-31 19:00 | PCM.SN.2 ---
- Free Text/Narrative Note: EKG done at 1846 hrs. Sinus rhythm heart rate 63 ND 188 QT 442 axis -51 QRS incomplete right bundle branch block and left anterior fascicular block. Compared to 05/17/2020 there is some minor changes in T wave morphology. Impression no obvious acute injury or arrhythmia.
--- NOTE | 2020-08-31 19:23 | CR ---
INDICATION: COVID-19 positive, cough, crackles in bases, no shortness of breath TECHNIQUE: Chest radiograph 1 view COMPARISON: 05/17/2020 FINDINGS: Severe degradation of image quality noted due to body habitus. Mediastinum: The mediastinum is normal in appearance. The heart silhouette is normal in size and morphology. Lung: Small lung volumes are present with mild interstitial prominence, similar to prior examination and may be due to underlying interstitial lung disease. No sign of pleural effusion seen. No pneumothorax is identified. Bone and Soft tissue: Unremarkable for age. IMPRESSION: 1. Small lung volumes are present with mild interstitial prominence, similar to prior examination and may be due to underlying interstitial lung disease. Dictated by Markel Ashraf MD @ 08/31/2020 7:20:59 PM Dictated by: Markel Ashraf MD @ 08/31/2020 19:21:46 (Electronically Signed)
[2020-08-31 19:37] LABS: BLOOD UREA NITROGEN,BUN 23 mg/dL (7.0-18.0); CARBON DIOXIDE,CO2 24.3 mmol/L (21.0-32.0); CHLORIDE,CL 106 mmol/L (98-107); GLUCOSE RANDOM 154 mg/dL (74-106); POTASSIUM,K 3.2 mmol/L (3.5-5.1); SODIUM,NA 142 mmol/L (136-145)
--- NOTE | 2020-08-31 20:15 | EDM.PDOC ---
ED HPI GENERAL MEDICAL PROBLEM - General Chief Complaint: Cardiovascular Problem Stated Complaint: HIGH BLOOD PRESSURE Time Seen by Provider: 08/31/20 18:06 Source of Information: Reports: Patient History Limitations: Reports: No Limitations - History of Present Illness INITIAL COMMENTS - FREE TEXT/NARRATIVE: Presents reporting elevated blood pressure. Patient brings along her blood pressures from home which were 200-220 over the 80s today. The patient denies any specific symptoms but states she felt a little clammy. She denied headache, chest pain, shortness of breath, body aches, sore throat, fever, nausea, vomiting, diarrhea. The patient states that she has Covid and tested positive about 10 days ago. She states she has been asymptomatic. She has been taking her blood pressure pills on a regular basis and has seen her primary provider fairly recently. Has been eating and drinking normally. - Related Data Allergies Allergy/AdvReac Type Severity Reaction Status Date / Time codeine Allergy Hives Verified 08/31/20 17:57 Iodine and Iodide Containing Allergy Airway Verified 08/31/20 17:57 Produc Tightness red dye Allergy Airway Verified 08/31/20 17:57 Tightness sulfamethoxazole Allergy Hives Verified 08/31/20 17:57 [From Bactrim] trimethoprim [From Bactrim] Allergy Hives Verified 08/31/20 17:57 ornade Spansules Allergy Hives Uncoded 08/31/20 17:57 Home Meds: Home Meds Lisinopril [Prinivil] 40 mg PO BID 04/23/15 [History] Aspirin [Adult Low Dose Aspirin EC] 1 tab PO DAILY 12/03/15 [History] carvediloL [Carvedilol] 12.5 mg PO BEDTIME 12/03/15 [History] metFORMIN [Glucophage] 2 tab PO DAILY 08/01/17 [History] SitaGLIPtin [Januvia] 50 mg PO DAILY 01/18/19 [History] Furosemide [Lasix] 20 mg PO DAILY 04/27/19 [History] Esomeprazole Magnesium 20 mg PO DAILY 10/02/19 [History] LORazepam [Lorazepam] 0.25 mg PO BEDTIME 04/01/20 [History] atorvaSTATin [Lipitor] 5 mg PO DAILY 04/01/20 [History] carvediloL [Carvedilol] 2 tab PO DAILY 04/01/20 [History] atorvaSTATin [Lipitor] 5 mg PO DAILY 05/17/20 [History] Past Medical History - Past Health History Medical/Surgical History: Denies Medical/Surgical History HEENT History: Reports: Other (See Below) Other HEENT History: wears glasses, has upper denture Cardiovascular History: Reports: High Cholesterol, Hypertension, [place], Other (See Below) Other Cardiovascular History: [place] in 2014- no stents, TIA in 2002- no residual Respiratory History: Reports: None Gastrointestinal History: Reports: GERD Genitourinary History: Reports: None [employer]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: Musculoskeletal History: Reports: None Neurological History: Reports: Headaches, Chronic, TIA Other Neuro History: TIA- 2002, no residual Psychiatric History: Reports: Anxiety Endocrine/Metabolic History: Reports: Diabetes, Type II, Obesity/BMI 30+ Insulin Pump Model 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: None Hematologic History: Reports: Anticoagulation Therapy Other Hematologic History: takes plavix Immunologic History: Reports: None Oncologic (Cancer) History: Reports: None Dermatologic History: Reports: None - Infectious Disease History Infectious Disease History: Reports: None - Past Surgical History Head Surgeries/Procedures: Reports: None HEENT Surgical History: Reports: None Cardiovascular Surgical History: Reports: None Respiratory Surgical History: Reports: None GI Surgical History: Reports: Cholecystectomy Female Surgical History: Reports: Hysterectomy, Other (See Below) Other Female Surgeries/Procedures: Anterior repair Endocrine Surgical History: Reports: None Neurological Surgical History: Reports: None Musculoskeletal Surgical History: Reports: None Oncologic Surgical History: Reports: None Dermatological Surgical History: Reports: None Social & Family History - Family History Family Medical History: No Pertinent Family History - Tobacco Use Tobacco Use Status *Q: Never Tobacco User - Caffeine Use Caffeine Use: Reports: Tea - Recreational Drug Use Recreational Drug Use: No ED ROS GENERAL - Review of Systems Review Of Systems: Comprehensive ROS is negative, except as noted in HPI. ED EXAM, GENERAL - Physical Exam Exam: See Below General Appearance: Alert, No Apparent Distress Ears: Normal External Exam, Normal TMs Nose: Normal Inspection Throat/Mouth: Normal Inspection Head: Atraumatic, Normocephalic Neck: Normal Inspection Respiratory/Chest: No Respiratory Distress, Rales (Bases bilateral) Cardiovascular: Normal Peripheral Pulses, Regular Rate, Rhythm, No Murmur GI/Abdominal: Soft, Non-Tender, No Distention Back Exam: Normal Inspection Extremities: Normal Inspection, No Pedal Edema Neurological: Alert, Oriented Psychiatric: Normal Affect, Normal Mood Skin Exam: Warm, Dry, Intact, Normal Color, No Rash Lymphatic: No Adenopathy Course - Vital Signs Last Recorded V/S: Last Vital Signs Temp 36.9 C 08/31/20 17:58 Pulse 63 08/31/20 19:30 Resp 18 08/31/20 19:30 BP 166/63 H 08/31/20 19:30 Pulse Ox 97 08/31/20 19:30 - Orders/Labs/Meds Orders: Active Orders 24 hr Category Date Time Status EKG 12 Lead [EKG Documentation Completion] [RC] STAT Care 08/31/20 18:24 Ordered Labs: Laboratory Tests 08/31/20 08/31/20 Range/Units 19: 19:01 WBC 9.11 (4.0-11.0) K/uL RBC 3.76 L (4.30-5.90) M/uL Hgb 11.9 L (12.0-16.0) g/dL Hct 35.1 L (36.0-46.0) % MCV 93.4 (80.0-98.0) fL MCH 31.6 (27.0-32.0) pg MCHC 33.9 (31.0-37.0) g/dL RDW Std Deviation 42.1 (28.0-62.0) fl RDW Coeff of Greg 13 (11.0-15.0) % Plt Count 201 (150-400) K/uL MPV 9.70 (7.40-12.00) fL Neut % (Auto) 53.1 (48.0-80.0) % Lymph % (Auto) 37.3 (16.0-40.0) % [place] % (Auto) 8.2 (0.0-15.0) % Eos % (Auto) 1.3 (0.0-7.0) % Baso % (Auto) 0.1 (0.0-1.5) % Neut # (Auto) 4.8 (1.4-5.7) K/uL Lymph # (Auto) 3.4 H (0.6-2.4) K/uL [place] # (Auto) 0.8 (0.0-0.8) K/uL Eos # (Auto) 0.1 (0.0-0.7) K/uL Baso # (Auto) 0.0 (0.0-0.1) K/uL Nucleated RBC % 0.0 /100WBC Nucleated RBCs # 0 K/uL Sodium 142 (136-145) mmol/L Potassium 3.2 L (3.5-5.1) mmol/L Chloride 106 (98-107) mmol/L Carbon Dioxide 24.3 (21.0-32.0) mmol/L BUN 23 H (7.0-18.0) mg/dL Creatinine 1.0 (0.6-1.0) mg/dL Est Cr Clr Drug Dosing 37.73 mL/min Estimated GFR (MDRD) 53.5 ml/min Glucose 154 H (74-106) mg/dL Calcium 8.4 L (8.5-10.1) mg/dL Total Bilirubin 0.4 (0.2-1.0) mg/dL AST 12 L (15-37) IU/L ALT 20 (14-63) IU/L Alkaline Phosphatase 74 (46-116) U/L Troponin I < 0.050 (0.000-0.056) ng/mL Total Protein 7.2 (6.4-8.2) g/dL Albumin 3.6 (3.4-5.0) g/dL Globulin 3.6 (2.6-4.0) g/dL Albumin/Globulin Ratio 1.0 (0.9-1.6) Meds: Medications Discontinued Medications Generic Name Dose Route Start Last Admin Trade Name Freq PRN Reason Stop Dose Admin Hydralazine HCl 10 mg 08/31/20 18:30 08/31/20 18:51 Apresoline PO 08/31/20 18:31 10 mg Q12HR ONE Administration - Re-Assessments/Exams Free Text/Narrative Re-Assessment/Exam: 08/31/20 20:24 Discussion with the patient. She is asymptomatic. Her diastolic blood pressure has come down to 64. She is happy to go home and follow-up with her primary provider Dr. Liu. Departure - Departure Time of Disposition: 20:25 Disposition: Home, Self-Care 01 Condition: Good Clinical Impression: Hypertension Qualifiers: Hypertension type: essential hypertension Qualified Code(s): I10 - Essential (primary) hypertension Referrals: PCP,Not In Area [Primary Care Provider] - Leslee Liu MD [Physician] - Additional Instructions: The following information is given to patients seen in the emergency department who are being discharged to home. This information is to outline your options for follow-up care. We provide all patients seen in our emergency department with a follow-up referral. The need for follow-up, as well as the timing and circumstances, are variable depending upon the specifics of your emergency department visit. If you don't have a primary care physician on staff, we will provide you with a referral. We always advise you to contact your personal physician following an emergency department visit to inform them of the circumstance of the visit and for follow-up with them and/or the need for any referrals to a consulting specialist. The emergency department will also refer you to a specialist when appropriate. This referral assures that you have the opportunity for follow-up care with a specialist. All of these measure are taken in an effort to provide you with optimal care, which includes your follow-up. Under all circumstances we always encourage you to contact your private physician who remains a resource for coordinating your care. When calling for follow-up care, please make the office aware that this follow-up is from your recent emergency room visit. If for any reason you are refused follow-up, please contact the [facility] Emergency Department at and asked to speak to the emergency department charge nurse. 1. Follow-up with Dr. Liu in the clinic to review your blood pressure management plan. 2. Return to the ER promptly for headache, chest pain, shortness of breath or other concerning symptoms. 3. Continue your good habit of taking your blood pressure medications regular basis Sepsis Event Note (ED) - Evaluation Sepsis Screening Result: No Definite Risk - Focused Exam Vital Signs: Vital Signs Temp Pulse Resp BP BP Pulse Ox 08/31/20 19:30 63 18 166/63 H 97 08/31/20 18:51 186/67 H 08/31/20 17:58 36.9 C 66 20 173/59 H 96 - My Orders Last 24 Hours: My Active Orders 08/31/20 18:24 EKG 12 Lead [EKG Documentation Completion] [RC] STAT - Assessment/Plan Last 24 Hours: My Active Orders 08/31/20 18:24 EKG 12 Lead [EKG Documentation Completion] [RC] STAT
[2020-08-31 20:25] VITALS: BP 170/64; PULSE 68
== END 2020-08-31 20:35 | disposition home or self-care (01) ==
LOC: MW.ED 17:30
DX: I10 Essential (primary) hypertension (principal); E78.00 Pure hypercholesterolemia, unspecified; I25.2 Old myocardial infarction; K21.9 Gastro-esophageal reflux disease without esophagitis; E11.9 Type 2 diabetes mellitus without complications; E66.9 Obesity, unspecified; Z68.27 Body mass index [BMI] 27.0-27.9, adult; Z88.5 Allergy status to narcotic agent; Z91.048 Other nonmedicinal substance allergy status; Z88.2 Allergy status to sulfonamides; Z88.1 Allergy status to other antibiotic agents; Z88.8 Allergy status to other drugs, medicaments and biological substances; Z86.73 Personal history of transient ischemic attack (TIA), and cerebral infarction without residual deficits; Z79.84 Long term (current) use of oral hypoglycemic drugs; Z79.82 Long term (current) use of aspirin; Z79.899 Other long term (current) drug therapy
CPT/HCPCS: 36415; 71045; 80053; 84484; 85025; 93005; 99284; A9270; 93010; 99282

== ENCOUNTER 2022-10-02 19:40 | Emergency (ER) | payer MEDICARE, OTHER ==
[2022-10-02] MEDS ORDERED: Sodium Chloride 0.9% 2.5 ML Syringe FLUSH PRN (20:01)
[2022-10-02] MEDS ORDERED: Sodium Chloride 0.9% 10 ML Syringe FLUSH PRN (20:01)
[2022-10-02] MEDS ORDERED: Magnesium Sulfate/Water 2 GM in Premix Bag 1 BAG IV STA (20:46)
[2022-10-02 20:48] LABS: CARBON DIOXIDE,CO2 28.1 mmol/L (21.0-32.0); POTASSIUM,K 3.8 mmol/L (3.5-5.1)
[2022-10-02 21:00] LABS: CORONAVIRUS COVID-19 NAA NEGATIVE (NEGATIVE); INFLUENZA A NAA NEGATIVE (NEGATIVE); INFLUENZA B NAA NEGATIVE (NEGATIVE)
[2022-10-02] MEDS ORDERED: Magnesium Oxide 400 MG Tab PO STA (21:12)
[2022-10-02] MEDS ORDERED: LORazepam 1 MG Tab PO STA (21:22)
[2022-10-02 21:33] VITALS: BP 152/74; PULSE 64
== END 2022-10-02 21:32 | disposition home or self-care (01) ==
LOC: MW.ED 19:40
DX: F41.9 Anxiety disorder, unspecified (principal); E83.42 Hypomagnesemia; I10 Essential (primary) hypertension; E78.00 Pure hypercholesterolemia, unspecified; I25.2 Old myocardial infarction; K21.9 Gastro-esophageal reflux disease without esophagitis; E11.9 Type 2 diabetes mellitus without complications; E66.9 Obesity, unspecified; Z68.30 Body mass index [BMI] 30.0-30.9, adult; Z88.5 Allergy status to narcotic agent; Z88.8 Allergy status to other drugs, medicaments and biological substances; Z88.2 Allergy status to sulfonamides; Z91.041 Radiographic dye allergy status; Z79.01 Long term (current) use of anticoagulants; Z79.82 Long term (current) use of aspirin; Z79.899 Other long term (current) drug therapy; Z79.4 Long term (current) use of insulin; Z20.822 Contact with and (suspected) exposure to COVID-19
CPT/HCPCS: 0240U; 36415; 71045; 80053; 81001; 83735; 83880; 84443; 84484; 85025; 93005; 99285; A9270; J3490

== ENCOUNTER 2022-11-08 16:27 | Emergency (ER) | payer MEDICARE, MEDICAID, OTHER ==
[2022-11-08] MEDS ORDERED: Metoclopramide 10 MG/2 ML SDV IVPUSH ONE (17:19)
[2022-11-08] MEDS ORDERED: Sodium Chloride 0.9% 1,000 ML IV ONE (17:19)
[2022-11-08 18:49] LABS: CARBON DIOXIDE,CO2 25.2 mmol/L (21.0-32.0); POTASSIUM,K 3.4 mmol/L (3.5-5.1)
[2022-11-08 19:47] VITALS: BP 189/73; PULSE 67
[2022-11-08] MEDS ORDERED: Azithromycin 250 MG Tab PO ONE (20:06)
== END 2022-11-08 20:19 | disposition home or self-care (01) ==
LOC: MW.ED 16:27
DX: J32.9 Chronic sinusitis, unspecified (principal); R05.9 Cough, unspecified; I10 Essential (primary) hypertension; I25.2 Old myocardial infarction; E11.9 Type 2 diabetes mellitus without complications; E66.9 Obesity, unspecified; Z68.28 Body mass index [BMI] 28.0-28.9, adult; K21.9 Gastro-esophageal reflux disease without esophagitis; Z79.4 Long term (current) use of insulin; Z79.82 Long term (current) use of aspirin; Z79.899 Other long term (current) drug therapy; Z88.5 Allergy status to narcotic agent; Z88.2 Allergy status to sulfonamides; Z88.8 Allergy status to other drugs, medicaments and biological substances; Z91.041 Radiographic dye allergy status; Z91.09 Other allergy status, other than to drugs and biological substances
CPT/HCPCS: 36415; 71046; 80048; 85025; 96361; 96374; 99284; A9270; J2765; J7030; 99283

== ENCOUNTER 2023-07-05 17:00 | Emergency (ER) | payer MEDICARE, OTHER, MEDICAID ==
[2023-07-05] MEDS ORDERED: Lisinopril 10 MG Tab PO ONE (17:27)
[2023-07-05] MEDS ORDERED: Carvedilol 12.5 MG Tab PO ONE (17:27)
[2023-07-05 18:53] VITALS: BP 178/65; PULSE 62
== END 2023-07-05 18:53 | disposition home or self-care (01) ==
LOC: MW.ED 17:00
DX: I11.0 Hypertensive heart disease with heart failure (principal); I50.9 Heart failure, unspecified; K21.9 Gastro-esophageal reflux disease without esophagitis; E11.9 Type 2 diabetes mellitus without complications; E66.9 Obesity, unspecified; Z79.01 Long term (current) use of anticoagulants; Z90.49 Acquired absence of other specified parts of digestive tract; Z90.710 Acquired absence of both cervix and uterus; Z79.82 Long term (current) use of aspirin; Z79.84 Long term (current) use of oral hypoglycemic drugs; Z79.899 Other long term (current) drug therapy; Z88.5 Allergy status to narcotic agent; Z91.041 Radiographic dye allergy status; Z88.2 Allergy status to sulfonamides; Z88.1 Allergy status to other antibiotic agents; Z88.8 Allergy status to other drugs, medicaments and biological substances; Z68.27 Body mass index [BMI] 27.0-27.9, adult
CPT/HCPCS: 71045; 93005; 99283; A9270

== ENCOUNTER 2023-11-19 14:28 | Emergency (ER) | payer MEDICARE, OTHER ==
[2023-11-19 15:46] LABS: BASOPHILS ABSOLUTE AUTO 0.05 K/uL (0.00-0.20); BASOPHILS PERCENT AUTO 0.4 % (0.0-1.0); EOSINOPHILS ABSOLUTE AUTO 0.22 K/uL (0.00-0.45); EOSINOPHILS PERCENT AUTO 1.9 % (0.0-6.0); HEMATOCRIT 38.6 % (37.0-47.0); HEMOGLOBIN 13.2 g/dL (12.0-16.0); IMMATURE GRAN ABSOLUTE AUTO 0.04 K/uL (0.00-0.05); IMMATURE GRAN PERCENT AUTO 0.4 % (0.0-0.4); LYMPHOCYTES ABSOLUTE AUTO 3.44 K/uL (1.00-4.80); LYMPHOCYTES PERCENT AUTO 30.3 % (24.0-44.0); MEAN CORPUSCULAR HEMOGLOBIN 32.2 pg (28.0-32.0); MEAN CORPUSCULAR HGB CONC 34.2 g/dL (32.0-36.0); MEAN CORPUSCULAR VOLUME 94.1 fL (83.0-99.0); MEAN PLATELET VOLUME 8.5 fL (9.4-12.3); MONOCYTES ABSOLUTE AUTO 0.69 K/uL (0.00-0.80); MONOCYTES PERCENT AUTO 6.1 % (0.0-8.0); NEUTROPHILS ABSOLUTE AUTO 6.91 K/uL (1.80-7.70); NEUTROPHILS PERCENT AUTO 60.9 % (41.0-71.0); PLATELET COUNT,PLT 272 K/uL (150-400); WHITE BLOOD CELL COUNT,WBC 11.35 K/uL (3.9-11.3)
[2023-11-19 16:08] LABS: A/G RATIO 0.7 (0.9-1.6); ALBUMIN 3.2 g/dL (3.4-5.0); BILIRUBIN TOTAL 0.3 mg/dL (0.2-1.0); CALCIUM 8.9 mg/dL (8.5-10.1); CARBON DIOXIDE,CO2 30.3 mmol/L (21.0-32.0); CREATININE 0.9 mg/dL (0.6-1.0); EST CRCL DRUG DOSING (CG) 39.87 mL/min; POTASSIUM,K 3.6 mmol/L (3.5-5.1); PROTEIN TOTAL,TP 7.9 g/dL (6.4-8.2)
[2023-11-19] MEDS: cloNIDine 0.1 MG Tab PO ONE (16:25)
[2023-11-19 17:08] VITALS: BP 185/67; PULSE 58
== END 2023-11-19 17:07 | disposition home or self-care (01) ==
LOC: MW.ED 14:28
DX: I11.0 Hypertensive heart disease with heart failure (principal); I50.9 Heart failure, unspecified; E11.9 Type 2 diabetes mellitus without complications; K21.9 Gastro-esophageal reflux disease without esophagitis; Z90.49 Acquired absence of other specified parts of digestive tract; Z90.710 Acquired absence of both cervix and uterus; Z79.82 Long term (current) use of aspirin; Z79.899 Other long term (current) drug therapy; Z88.5 Allergy status to narcotic agent; Z88.2 Allergy status to sulfonamides; Z91.041 Radiographic dye allergy status; Z75.8 Other problems related to medical facilities and other health care
CPT/HCPCS: 36415; 71046; 80053; 85025; 99283; A9270; 99282

== ENCOUNTER 2024-01-29 20:24 | Emergency (ER) | payer MEDICARE, OTHER ==
[2024-01-29] MEDS: cloNIDine 0.1 MG Tab PO ONE (21:02)
[2024-01-29 21:04] LABS: BASOPHILS ABSOLUTE AUTO 0.03 K/uL (0.00-0.20); BASOPHILS PERCENT AUTO 0.3 % (0.0-1.0); EOSINOPHILS ABSOLUTE AUTO 0.15 K/uL (0.00-0.45); EOSINOPHILS PERCENT AUTO 1.6 % (0.0-6.0); HEMATOCRIT 37.3 % (37.0-47.0); HEMOGLOBIN 12.9 g/dL (12.0-16.0); IMMATURE GRAN ABSOLUTE AUTO 0.01 K/uL (0.00-0.05); IMMATURE GRAN PERCENT AUTO 0.1 % (0.0-0.4); LYMPHOCYTES ABSOLUTE AUTO 2.75 K/uL (1.00-4.80); LYMPHOCYTES PERCENT AUTO 29.3 % (24.0-44.0); MEAN CORPUSCULAR HEMOGLOBIN 32.3 pg (28.0-32.0); MEAN CORPUSCULAR HGB CONC 34.6 g/dL (32.0-36.0); MEAN CORPUSCULAR VOLUME 93.3 fL (83.0-99.0); MEAN PLATELET VOLUME 9.2 fL (9.4-12.3); MONOCYTES ABSOLUTE AUTO 0.87 K/uL (0.00-0.80); MONOCYTES PERCENT AUTO 9.3 % (0.0-8.0); NEUTROPHILS ABSOLUTE AUTO 5.59 K/uL (1.80-7.70); NEUTROPHILS PERCENT AUTO 59.4 % (41.0-71.0); PLATELET COUNT,PLT 182 K/uL (150-400)
[2024-01-29 21:33] LABS: A/G RATIO 0.8 (0.9-1.6); ALBUMIN 3.2 g/dL (3.4-5.0); BILIRUBIN TOTAL 0.3 mg/dL (0.2-1.0); CALCIUM 8.2 mg/dL (8.5-10.1); CARBON DIOXIDE,CO2 28.5 mmol/L (21.0-32.0); EST CRCL DRUG DOSING (CG) 33.71 mL/min; MAGNESIUM 1.7 mg/dL (1.8-2.4); POTASSIUM,K 3.9 mmol/L (3.5-5.1); PROTEIN TOTAL,TP 7.4 g/dL (6.4-8.2)
[2024-01-29 21:47] VITALS: BP 162/52; PULSE 60
== END 2024-01-29 21:46 | disposition home or self-care (01) ==
LOC: MW.ED 20:24
DX: I10 Essential (primary) hypertension (principal); E11.65 Type 2 diabetes mellitus with hyperglycemia; I11.0 Hypertensive heart disease with heart failure; I50.9 Heart failure, unspecified; E66.9 Obesity, unspecified; K21.9 Gastro-esophageal reflux disease without esophagitis; Z86.73 Personal history of transient ischemic attack (TIA), and cerebral infarction without residual deficits; Z79.899 Other long term (current) drug therapy; Z79.82 Long term (current) use of aspirin; Z79.84 Long term (current) use of oral hypoglycemic drugs; Z79.4 Long term (current) use of insulin; Z75.8 Other problems related to medical facilities and other health care; Z88.6 Allergy status to analgesic agent; Z88.2 Allergy status to sulfonamides; Z88.8 Allergy status to other drugs, medicaments and biological substances; Z91.018 Allergy to other foods
CPT/HCPCS: 36415; 80053; 83735; 84484; 85025; 93005; 99283; A9270; 93010

== ENCOUNTER 2024-02-01 20:46 | Emergency (ER) | payer MEDICARE, OTHER ==
[2024-02-01 21:26] LABS: BASOPHILS ABSOLUTE AUTO 0.04 K/uL (0.00-0.20); BASOPHILS PERCENT AUTO 0.5 % (0.0-1.0); EOSINOPHILS ABSOLUTE AUTO 0.15 K/uL (0.00-0.45); HEMATOCRIT 35.5 % (37.0-47.0); HEMOGLOBIN 12.2 g/dL (12.0-16.0); IMMATURE GRAN ABSOLUTE AUTO 0.01 K/uL (0.00-0.05); IMMATURE GRAN PERCENT AUTO 0.1 % (0.0-0.4); LYMPHOCYTES ABSOLUTE AUTO 3.08 K/uL (1.00-4.80); LYMPHOCYTES PERCENT AUTO 40.4 % (24.0-44.0); MEAN CORPUSCULAR HEMOGLOBIN 31.8 pg (28.0-32.0); MEAN CORPUSCULAR HGB CONC 34.4 g/dL (32.0-36.0); MEAN CORPUSCULAR VOLUME 92.4 fL (83.0-99.0); MEAN PLATELET VOLUME 9.6 fL (9.4-12.3); MONOCYTES ABSOLUTE AUTO 0.59 K/uL (0.00-0.80); MONOCYTES PERCENT AUTO 7.7 % (0.0-8.0); NEUTROPHILS ABSOLUTE AUTO 3.75 K/uL (1.80-7.70); NEUTROPHILS PERCENT AUTO 49.3 % (41.0-71.0); PLATELET COUNT,PLT 173 K/uL (150-400); RED BLOOD CELL COUNT 3.84 M/uL (4.10-5.30); WHITE BLOOD CELL COUNT,WBC 7.62 K/uL (3.9-11.3)
[2024-02-01 21:50] LABS: A/G RATIO 0.8 (0.9-1.6); ALBUMIN 3.2 g/dL (3.4-5.0); BILIRUBIN TOTAL 0.4 mg/dL (0.2-1.0); CARBON DIOXIDE,CO2 30.1 mmol/L (21.0-32.0); EST CRCL DRUG DOSING (CG) 35.26 mL/min; POTASSIUM,K 3.4 mmol/L (3.5-5.1); PROTEIN TOTAL,TP 7.2 g/dL (6.4-8.2)
[2024-02-01 22:48] VITALS: BP 173/60; PULSE 65
== END 2024-02-01 22:15 | disposition home or self-care (01) ==
LOC: MW.ED 20:46
DX: I11.0 Hypertensive heart disease with heart failure (principal); I50.9 Heart failure, unspecified; E11.9 Type 2 diabetes mellitus without complications; K21.9 Gastro-esophageal reflux disease without esophagitis; Z88.5 Allergy status to narcotic agent; Z91.041 Radiographic dye allergy status; Z88.2 Allergy status to sulfonamides; Z88.8 Allergy status to other drugs, medicaments and biological substances; Z79.82 Long term (current) use of aspirin; Z79.4 Long term (current) use of insulin; Z79.84 Long term (current) use of oral hypoglycemic drugs; Z79.899 Other long term (current) drug therapy; Z90.49 Acquired absence of other specified parts of digestive tract; Z90.710 Acquired absence of both cervix and uterus; Z75.8 Other problems related to medical facilities and other health care; Z86.73 Personal history of transient ischemic attack (TIA), and cerebral infarction without residual deficits
CPT/HCPCS: 36415; 80053; 85025; 99283

== ENCOUNTER 2024-02-26 19:56 | Emergency (ER) | payer MEDICARE, OTHER ==
[2024-02-26 20:57] LABS: CORONAVIRUS COVID-19 NAA NEGATIVE (NEGATIVE); INFLUENZA A NAA NEGATIVE (NEGATIVE); INFLUENZA B NAA NEGATIVE (NEGATIVE); RESPIRATORY SYNCYTIAL VIR NAA NEGATIVE (NEGATIVE)
[2024-02-26 22:20] LABS: BASOPHILS ABSOLUTE AUTO 0.05 K/uL (0.00-0.20); BASOPHILS PERCENT AUTO 0.4 % (0.0-1.0); EOSINOPHILS ABSOLUTE AUTO 0.23 K/uL (0.00-0.45); HEMATOCRIT 35.6 % (37.0-47.0); HEMOGLOBIN 12.4 g/dL (12.0-16.0); IMMATURE GRAN ABSOLUTE AUTO 0.02 K/uL (0.00-0.05); IMMATURE GRAN PERCENT AUTO 0.2 % (0.0-0.4); LYMPHOCYTES ABSOLUTE AUTO 2.98 K/uL (1.00-4.80); LYMPHOCYTES PERCENT AUTO 25.5 % (24.0-44.0); MEAN CORPUSCULAR HEMOGLOBIN 31.9 pg (28.0-32.0); MEAN CORPUSCULAR HGB CONC 34.8 g/dL (32.0-36.0); MEAN CORPUSCULAR VOLUME 91.5 fL (83.0-99.0); MEAN PLATELET VOLUME 9.5 fL (9.4-12.3); MONOCYTES ABSOLUTE AUTO 1.16 K/uL (0.00-0.80); MONOCYTES PERCENT AUTO 9.9 % (0.0-8.0); NEUTROPHILS ABSOLUTE AUTO 7.26 K/uL (1.80-7.70); PLATELET COUNT,PLT 175 K/uL (150-400); RED BLOOD CELL COUNT 3.89 M/uL (4.10-5.30)
[2024-02-26] MEDS: Sodium Chloride 0.9% 2.5 ML Syringe FLUSH PRN (22:20)
[2024-02-26] MEDS: Sodium Chloride 0.9% 10 ML Syringe FLUSH PRN (22:20)
[2024-02-26] MEDS: Albuterol/Ipratropium 3.0-0.5 MG/3 ML Neb Soln NEB ONE (22:20)
[2024-02-26 22:42] LABS: A/G RATIO 0.9 (0.9-1.6); ALBUMIN 3.5 g/dL (3.4-5.0); BILIRUBIN TOTAL 0.6 mg/dL (0.2-1.0); CALCIUM 8.8 mg/dL (8.5-10.1); CARBON DIOXIDE,CO2 29.1 mmol/L (21.0-32.0); EST CRCL DRUG DOSING (CG) 35.26 mL/min; POTASSIUM,K 3.3 mmol/L (3.5-5.1); PROTEIN TOTAL,TP 7.3 g/dL (6.4-8.2)
[2024-02-27] MEDS: Amoxicillin/Clavulanate K 875-125 MG Tab PO ONE (00:52)
[2024-02-27 00:54] VITALS: BP 152/60; PULSE 62
== END 2024-02-27 00:55 | disposition home or self-care (01) ==
LOC: MW.ED 19:56
DX: J18.9 Pneumonia, unspecified organism (principal); I11.0 Hypertensive heart disease with heart failure; I50.9 Heart failure, unspecified; E66.9 Obesity, unspecified; E11.9 Type 2 diabetes mellitus without complications; Z88.8 Allergy status to other drugs, medicaments and biological substances; Z91.041 Radiographic dye allergy status; Z79.4 Long term (current) use of insulin; Z79.82 Long term (current) use of aspirin; Z79.899 Other long term (current) drug therapy; Z90.49 Acquired absence of other specified parts of digestive tract; Z90.710 Acquired absence of both cervix and uterus; Z68.28 Body mass index [BMI] 28.0-28.9, adult
CPT/HCPCS: 0241U; 36415; 71046; 80053; 84484; 85025; 93005; 99284; A9270; J3490; 93010; J7620-GY

== ENCOUNTER 2024-03-15 10:49 | Emergency (ER) | payer MEDICARE, OTHER ==
[2024-03-15] MEDS ORDERED: Sodium Chloride 0.9% 10 ML Syringe FLUSH PRN (12:42)
[2024-03-15] MEDS ORDERED: Sodium Chloride 0.9% 2.5 ML Syringe FLUSH PRN (12:42)
[2024-03-15] MEDS ORDERED: Ibuprofen 400 MG Tab PO ONE (12:44)
[2024-03-15 14:18] LABS: BASOPHILS ABSOLUTE AUTO 0.04 K/uL (0.00-0.20); BASOPHILS PERCENT AUTO 0.4 % (0.0-1.0); EOSINOPHILS ABSOLUTE AUTO 0.11 K/uL (0.00-0.45); EOSINOPHILS PERCENT AUTO 1.1 % (0.0-6.0); HEMATOCRIT 39.3 % (37.0-47.0); HEMOGLOBIN 13.5 g/dL (12.0-16.0); IMMATURE GRAN ABSOLUTE AUTO 0.02 K/uL (0.00-0.05); IMMATURE GRAN PERCENT AUTO 0.2 % (0.0-0.4); LYMPHOCYTES ABSOLUTE AUTO 2.63 K/uL (1.00-4.80); LYMPHOCYTES PERCENT AUTO 25.5 % (24.0-44.0); MEAN CORPUSCULAR HEMOGLOBIN 31.6 pg (28.0-32.0); MEAN CORPUSCULAR HGB CONC 34.4 g/dL (32.0-36.0); MONOCYTES ABSOLUTE AUTO 0.57 K/uL (0.00-0.80); MONOCYTES PERCENT AUTO 5.5 % (0.0-8.0); NEUTROPHILS ABSOLUTE AUTO 6.96 K/uL (1.80-7.70); NEUTROPHILS PERCENT AUTO 67.3 % (41.0-71.0); PLATELET COUNT,PLT 235 K/uL (150-400); RED BLOOD CELL COUNT 4.27 M/uL (4.10-5.30); WHITE BLOOD CELL COUNT,WBC 10.33 K/uL (3.9-11.3)
[2024-03-15] MEDS: Acetaminophen 500 MG Tab PO ONE (14:20)
[2024-03-15 14:48] LABS: A/G RATIO 0.9 (0.9-1.6); ALBUMIN 3.7 g/dL (3.4-5.0); CALCIUM 9.1 mg/dL (8.5-10.1); CARBON DIOXIDE,CO2 29.8 mmol/L (21.0-32.0); EST CRCL DRUG DOSING (CG) 35.26 mL/min; POTASSIUM,K 4.7 mmol/L (3.5-5.1); PROTEIN TOTAL,TP 7.7 g/dL (6.4-8.2)
[2024-03-15 19:47] VITALS: BP 203/74; PULSE 56
== END 2024-03-15 15:18 | disposition home or self-care (01) ==
LOC: MW.ED 10:49
DX: M79.601 Pain in right arm (principal); I11.0 Hypertensive heart disease with heart failure; I50.9 Heart failure, unspecified; E66.9 Obesity, unspecified; E11.9 Type 2 diabetes mellitus without complications; Z88.2 Allergy status to sulfonamides; Z91.041 Radiographic dye allergy status; Z88.8 Allergy status to other drugs, medicaments and biological substances; Z79.82 Long term (current) use of aspirin; Z79.899 Other long term (current) drug therapy; Z90.49 Acquired absence of other specified parts of digestive tract; Z90.710 Acquired absence of both cervix and uterus; Z68.27 Body mass index [BMI] 27.0-27.9, adult; Z75.8 Other problems related to medical facilities and other health care
CPT/HCPCS: 36415; 73090; 80053; 84484; 85025; 93005; 99284; A9270

== ENCOUNTER 2024-05-10 16:02 | Emergency (ER) | payer MEDICARE, OTHER ==
[2024-05-10] MEDS: Metoclopramide 10 MG/2 ML SDV IVPUSH ONE (16:26)
[2024-05-10] MEDS: Sodium Chloride 0.9% 10 ML Syringe FLUSH PRN (16:27)
[2024-05-10] MEDS: Sodium Chloride 0.9% 2.5 ML Syringe FLUSH PRN (16:27)
[2024-05-10 16:30] LABS: BASOPHILS ABSOLUTE AUTO 0.04 K/uL (0.00-0.20); BASOPHILS PERCENT AUTO 0.5 % (0.0-1.0); EOSINOPHILS ABSOLUTE AUTO 0.19 K/uL (0.00-0.45); EOSINOPHILS PERCENT AUTO 2.2 % (0.0-6.0); HEMOGLOBIN 12.4 g/dL (12.0-16.0); IMMATURE GRAN ABSOLUTE AUTO 0.02 K/uL (0.00-0.05); IMMATURE GRAN PERCENT AUTO 0.2 % (0.0-0.4); LYMPHOCYTES PERCENT AUTO 32.6 % (24.0-44.0); MEAN CORPUSCULAR HGB CONC 34.4 g/dL (32.0-36.0); MEAN PLATELET VOLUME 8.8 fL (9.4-12.3); MONOCYTES PERCENT AUTO 8.2 % (0.0-8.0); NEUTROPHILS ABSOLUTE AUTO 4.83 K/uL (1.80-7.70); NEUTROPHILS PERCENT AUTO 56.3 % (41.0-71.0); PLATELET COUNT,PLT 263 K/uL (150-400); RED BLOOD CELL COUNT 3.87 M/uL (4.10-5.30); WHITE BLOOD CELL COUNT,WBC 8.58 K/uL (3.9-11.3)
[2024-05-10 16:41] LABS: INR 1.07 (0.86-1.11)
[2024-05-10 16:48] LABS: A/G RATIO 0.8 (0.9-1.6); ALBUMIN 3.2 g/dL (3.4-5.0); BILIRUBIN TOTAL 0.4 mg/dL (0.2-1.0); CALCIUM 9.4 mg/dL (8.5-10.1); CARBON DIOXIDE,CO2 34.4 mmol/L (21.0-32.0); CREATININE 1.5 mg/dL (0.6-1.0); EST CRCL DRUG DOSING (CG) 22.47 mL/min; POTASSIUM,K 3.7 mmol/L (3.5-5.1); PROTEIN TOTAL,TP 7.3 g/dL (6.4-8.2)
[2024-05-10] MEDS: Sodium Chloride 0.9% 500 ML IV SCH (18:38)
[2024-05-10 19:20] VITALS: BP 174/66; PULSE 66
== END 2024-05-10 19:17 | disposition home or self-care (01) ==
LOC: MW.ED 16:02
DX: R51.9 Headache, unspecified (principal); I11.0 Hypertensive heart disease with heart failure; I50.9 Heart failure, unspecified; E11.9 Type 2 diabetes mellitus without complications; E66.9 Obesity, unspecified; Z68.28 Body mass index [BMI] 28.0-28.9, adult; Z90.49 Acquired absence of other specified parts of digestive tract; Z90.710 Acquired absence of both cervix and uterus; Z79.4 Long term (current) use of insulin; Z79.84 Long term (current) use of oral hypoglycemic drugs; Z88.5 Allergy status to narcotic agent; Z91.041 Radiographic dye allergy status; Z88.2 Allergy status to sulfonamides; Z88.9 Allergy status to unspecified drugs, medicaments and biological substances
CPT/HCPCS: 36415; 70450; 80053; 85025; 85610; 96361; 96374; 99284; J2765; J3490; J7040; 99283